=== PATIENT | male | born 1950 | race Caucasian/White ===

== ENCOUNTER 2020-04-11 18:32 | Inpatient (IN) | payer OTHER, BC ==
[2020-04-11] MEDS ORDERED: ACETAMINOPHEN 1000 MG/100 ML VIAL (NON FORMULARY) IVPB ONE (18:38)
[2020-04-11] MEDS: ALBUTEROL SO4 2.5/IPRATROPIUM 0.5 INH SOL 3 ML VIAL.NEB. NEB SCH ×4 (18:50→19:24)
[2020-04-11] MEDS ORDERED: AZITHROMYCIN IVPB 500 MG/250 ML BAG IVPB ONE ×2 (18:52→19:06)
[2020-04-11] MEDS ORDERED: CEFTRIAXONE 1 GM in DEXTROSE 5%-WATER - 50 ML IVPB ONE (18:52)
[2020-04-11] MEDS ORDERED: CEFTRIAXONE 1 GM/50 ML BAG ONE (19:06)
[2020-04-11 19:20] LABS: VENOUS BASE EXCESS -0.4 mmol/L (-2-2); VENOUS O2 SATURATION 98.6 % (70-80); VENOUS PCO2 38.5 mmHg (38-52); VENOUS PH 7.412 (7.310-7.410)
[2020-04-11] MEDS ORDERED: DEXAMETHASONE SOD PHOSPHATE 10 MG/1 ML VIAL IVPUSH ONE (19:21)
--- NOTE | 2020-04-11 19:21 | PDOC ---
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 Pt reports worsening shortness of breath today, and cough productive of yellow sputum prior to calling EMS, PT uses O2 at baseline at home constantly at 4 or 5L. He denies any associated chest pain, pleuritic pain, hemoptysis, nausea, vomiting, 04/11/20 20:12 ROS: GENERAL/CONSTITUTIONAL: No fever or chills. No weakness. HEAD, EYES, EARS, NOSE AND THROAT: No change in vision. No ear pain or discharge. No sore throat. CARDIOVASCULAR: No chest pain or shortness of breath RESPIRATORY: No cough, wheezing, or hemoptysis. GASTROINTESTINAL: No nausea, vomiting, diarrhea or constipation. GENITOURINARY: No dysuria, frequency, or change in urination. MUSCULOSKELETAL: No joint or muscle swelling or pain. No neck or back pain. SKIN: No rash NEUROLOGIC: No headache, vertigo, loss of consciousness, or change in strength/sensation. ENDOCRINE: No increased thirst. No abnormal weight change HEMATOLOGIC/LYMPHATIC: No anemia, easy bleeding, or history of blood clots. ALLERGIC/IMMUNOLOGIC: No hives or skin allergy. PE: GENERAL: Awake, alert, tripoding, thin appearing HEAD: No signs of trauma, normocephalic, atraumatic EYES: PERRLA, EOMI, sclera anicteric, conjunctiva clear ENT: Auricles normal inspection, hearing grossly normal, nares patent, oropharynx clear without exudates. Moist mucosa NECK: Normal ROM, supple, no lymphadenopathy, JVD, or masses LUNGS: expiratory wheezing, increased respiratory effort on non-rebreather HEART: tachycardic, normal S1 and S2, no murmurs, rubs or gallops, peripheral pulses normal and equal bilaterally. ABDOMEN: Soft, nontender, normoactive bowel sounds. No guarding, no rebound. No masses EXTREMITIES : Normal inspection, Normal range of motion, no edema. No clubbing or cyanosis NEUROLOGICAL: Cranial nerves II through XII grossly intact. Normal speech, no focal sensorimotor deficits SKIN: Warm, Dry, normal turgor, no rashes or lesions noted 04/11/20 20:27 04/11/20 20:51 04/11/20 20:58 <Stefany Friend - Last Filed: 05/19/20 19:42> <Elvis Lang - Last Filed: 06/09/20 16:45> - General Chief Complaint: Shortness of Breath Stated Complaint: SHORTNESS OF BREATH Time Seen by Provider: 04/11/20 18:44 Past History - Medical History COPD: Yes - Psycho-Social/Smoking History Smoking History: Never smoked - Substance Abuse Hx (Audit-C & DAST Scrn) How often the patient has a drink containing alcohol: Never Score: In Men: 4 or > Positive; In Women: 3 or > Positive: 0 Screen Result (Pos requires Nsg. Audit-10AR): Negative In the last yr the pt used illegal drug/Rx for NonMed reason: No Score: Yes response is considered Positive: 0 Screen Result (Positive result requires Nsg. DAST-10): Negative <Stefany Friend - Last Filed: 05/19/20 19:42> <Elvis Lang - Last Filed: 06/09/20 16:45> - Medical History Allergies/Adverse Reactions: Allergies Allergy/AdvReac Type Severity Reaction Status Date / Time No Known Allergies Allergy Verified 04/11/20 18:55 Home Medications: Ambulatory Orders Albuterol Sulfate [Proair Hfa] 8.5 gm IH PRN 04/11/20 Cetirizine HCl [Zyrtec -] 10 mg PO PRN 04/11/20 Ramipril 1.25 mg PO DAILY 04/11/20 Salmeterol/Fluticasone [Advair 100Mcg/50Mcg -] 1 inh PO BID 04/11/20 Theophylline Anhydrous [Domo-24] 150 mg PO BID 04/11/20 Tiotropium [place] [Spiriva] 1 inh PO DAILY 04/11/20 Prednisone See Taper PO DAILY #76 tablet 04/22/20 Ramipril 2.5 mg PO DAILY 04/23/20 Theophylline Anhydrous 0.5 tab 04/23/20 *Physical Exam - Vital Signs Last Vital Signs Temp Pulse Resp BP Pulse Ox 101.5 F H 147 H 32 H 147/110 H 97 04/11/20 18:34 04/11/20 18:34 04/11/20 18:34 04/11/20 18:34 04/11/20 18:34 <Stefany Friend - Last Filed: 05/19/20 19:42> - Vital Signs Last Vital Signs Temp Pulse Resp BP Pulse Ox 98 F 112 H 21 H 103/56 L 99 04/23/20 14:08 04/23/20 14:08 04/23/20 14:08 04/23/20 14:08 04/23/20 10:00 <Elvis Lang - Last Filed: 06/09/20 16:45> ED Treatment Course - LABORATORY CBC & Chemistry Diagram: 04/22/20 05:30 04/22/20 05:30 <Stefany Friend - Last Filed: 05/19/20 19:42> - LABORATORY CBC & Chemistry Diagram: 04/22/20 05:30 04/22/20 05:30 - ADDITIONAL ORDERS Additional order review: 04/11/20 19:00 Blood Culture - Final Blood - Peripheral Venous NO GROWTH AFTER 5 DAYS INCUBATION 04/11/20 19:00 Blood Culture - Final Blood - Peripheral Venous NO GROWTH AFTER 5 DAYS INCUBATION 04/11/20 17:50 RBC 3.72 L MCV 93.4 MCHC 32.6 RDW 13.5 MPV 8.7 Neutrophils % 69.8 Lymphocytes % 6.9 L Monocytes % 7.4 Eosinophils % 15.6 H Basophils % 0.3 - Medications Given in the ED: ED Medications Discontinued Medications Generic Name Dose Route Start Last Admin Trade Name Freq PRN Reason Stop Dose Admin Acetaminophen 1,000 mg 04/11/20 18:38 04/11/20 18:59 Ofirmev Injection - IVPB 04/11/20 18:39 1,000 mg ONCE ONE Administration Acetaminophen 650 mg 04/18/20 11:27 04/23/20 09:52 Tylenol - PO 650 mg Q6H PRN Administration Fever Acetylcysteine 600 mg 04/21/20 20:00 04/22/20 17:25 Mucomyst 20 Oral / Inh Use Only* NEB Not Given RBID JACQUELIN Acetylcysteine 600 mg 04/22/20 09:00 04/23/20 08:40 Mucomyst 20 Oral / Inh Use Only* NEB 600 mg RBID JACQUELIN Administration Albuterol Sulfate 2 puff 04/12/20 08:00 04/15/20 12:43 Ventolin Hfa Inhaler - IH 2 puff RQ4H JACQUELIN Administration Albuterol Sulfate 1 amp 04/21/20 10:43 04/23/20 08:40 Ventolin 0.083% Nebulizer Soln - NEB 1 amp Q4H PRN Administration SHORT OF BREATH/WHEEZING Albuterol/Ipratropium 1 amp 04/11/20 19:00 04/11/20 19:24 Duoneb - NEB 04/11/20 19:46 1 amp Q15M JACQUELIN Administration Albuterol/Ipratropium 1 amp 04/11/20 22:45 04/11/20 23:25 Duoneb - NEB Not Given Q4H JACQUELIN Albuterol/Ipratropium 1 amp 04/15/20 20:00 04/20/20 14:09 Duoneb - NEB 1 amp RTID JACQUELIN Administration Budesonide/Formoterol Fumarate 2 puff 04/21/20 11:00 04/23/20 10:15 Symbicort 80/4.5mcg - IH 2 puff BID JACQUELIN Administration Dexamethasone Sodium Phosphate 10 mg 04/11/20 19:21 04/11/20 19:00 Decadron Injection - IVPUSH 04/11/20 19:22 10 mg ONCE ONE Administration Enoxaparin Sodium 40 mg 04/12/20 10:00 04/23/20 10:15 Lovenox - SQ 40 mg DAILY JACQUELIN Administration Azithromycin 500 mg in 250 mls @ 250 mls/hr 04/11/20 18:52 04/11/20 19:34 Zithromax 500mg Ivpb (Pre-Docked) IVPB 04/11/20 19:51 250 mls/hr ONCE ONE Administration Ceftriaxone Sodium 1 gm/ 50 mls @ 100 mls/hr 04/11/20 18:52 04/11/20 19:19 Dextrose IVPB 04/11/20 19:21 100 mls/hr ONCE ONE Administration Voriconazole 400 mg/ Dextrose 140 mls @ 70 mls/hr 04/11/20 23:30 04/12/20 11:11 IVPB 04/12/20 13:29 70 mls/hr Q12H JACQUELIN Administration Ceftriaxone Sodium 1 gm/ 50 mls @ 200 mls/hr 04/13/20 10:00 04/19/20 09:25 Dextrose IVPB 200 mls/hr DAILY JACQUELIN Administration Protocol Ceftriaxone Sodium 1 gm/ 50 mls @ 100 mls/hr 04/20/20 15:30 04/22/20 10:06 Dextrose IVPB 100 mls/hr DAILY JACQUELIN Administration Methylprednisolone Sodium Succinate 40 mg 04/12/20 02:00 04/13/20 09:34 Solu-Medrol - IVPUSH 40 mg Q8H-IV JACQUELIN Administration Methylprednisolone Sodium Succinate 40 mg 04/14/20 17:31 04/15/20 09:48 Solu-Medrol - IVPUSH 40 mg Q8H-IV JACQUELIN Administration Methylprednisolone Sodium Succinate 40 mg 04/15/20 22:00 04/17/20 11:25 Solu-Medrol - IVPUSH Not Given BID JACQUELIN Metoprolol Tartrate 5 mg 04/18/20 12:24 04/22/20 13:16 Lopressor Injection - IVPUSH 5 mg Q4H PRN Administration TACHYCARDIA Naproxen 220 mg 04/18/20 11:34 04/20/20 09:12 Naprosyn - PO 220 mg Q6H PRN Administration PAIN LEVEL 6-10 Naproxen 250 mg 04/22/20 00:14 04/22/20 13:25 Naprosyn - PO 250 mg Q6H PRN Administration PAIN LEVEL 6-10 Prednisone 40 mg 04/18/20 10:00 04/23/20 10:15 Deltasone - PO 40 mg DAILY JACQUELIN Administration Sodium Chloride 500 ml 04/11/20 20:16 04/11/20 21:02 Normal Saline - IV 04/11/20 20:17 500 ml ONCE ONE Administration Tiotropium [place] 2 puff 04/12/20 10:00 04/15/20 10:12 Spiriva Respimat IH 2 puff DAILY JACQUELIN Administration Tiotropium [place] 2 puff 04/21/20 11:00 04/23/20 10:15 Spiriva Respimat IH 2 puff DAILY JACQUELIN Administration <Elvis Lang - Last Filed: 06/09/20 16:45> Medical Decision Making - Medical Decision Making 04/11/20 18:45 70 y/o M hx of emphysema on theophylline presenting to ED with shortness of breath via EMS. ddx; copd exacerbation vs pneumonia, vs p.e, vs acs. pt arrived on NRB, placed on BIPAP febrile on presentation ddx: copd exacerbation secondary to infection (covid/other infection ) infectious/covid/copd exacerbation workup meds: iv decadron, nebs. 04/11/20 19:21 pt on BIPAP respiratory distress improved. CXR: hyperinflated lungs. RUl infiltrates vs cavitary lesion meds: ceftriaxone and azithomycin 04/11/20 20:13 bedside ultraasound: non-plethoric IVC, B-lines bilaterally, hyperdynamic heart. ekg: sinus tachycardia, right atrial enlargement no ST elevations. elevated white count vbg pH 7.4 elevated ferritin 595,7 04/11/20 20:47 04/11/20 20:48 04/11/20 20:58 <Stefany Friend - Last Filed: 05/19/20 19:42> Discharge - Discharge Information Problems reviewed: Yes <Stefany Friend - Last Filed: 05/19/20 19:42> - Discharge Information Problems reviewed: Yes <Elvis Lang - Last Filed: 06/09/20 16:45> - Discharge Information Clinical Impression/Diagnosis: COPD (chronic obstructive pulmonary disease) Condition: Stable Disposition: HOME
[2020-04-11 19:32] LABS: BASO % 0.3 % (0-2.0); EOS % 15.6 % (0-4.5); HEMATOCRIT 34.7 % (35.4-49); HEMOGLOBIN 11.3 GM/dL (11.7-16.9); LYMPH % 6.9 % (8-40); MCH 30.5 pg (25.7-33.7); MCHC 32.6 g/dl (32.0-35.9); MEAN CELL VOLUME 93.4 fl (80-96); MEAN PLT VOLUME 8.7 fl (7.5-11.1); MONO % 7.4 % (3.8-10.2); NEUT % 69.8 % (42.8-82.8); PLATELET COUNT 274 K/MM3 (134-434); RBC 3.72 M/mm3 (4.00-5.60); RDW 13.5 % (11.9-15.9); WHITE BLOOD COUNT 18.3 K/mm3 (4.0-10.0)
[2020-04-11 19:37] LABS: INR 1.17 (0.83-1.09); PROTHROMBIN TIME (PATIENT) 13.8 SEC (9.7-13.0)
[2020-04-11 19:39] LABS: ACTIVATED PTT 26.1 SECONDS (25.2-36.5)
[2020-04-11 20:09] LABS: ALBUMIN 2.9 g/dl (3.4-5.0); ALK PHOS 59 U/L (45-117); ANION GAP 9 MMOL/L (8-16); BILIRUBIN,TOTAL 0.5 mg/dL (0.2-1); CALCIUM 9.1 mg/dL (8.5-10.1); CHLORIDE 100 mmol/L (98-107); CO2 26 mmol/L (21-32); CREATININE 0.7 mg/dL (0.55-1.3); POTASSIUM 4.1 mmol/L (3.5-5.1); SGPT/ALT 14 U/L (13-61); SODIUM 136 mmol/L (136-145); TOT PROT 7.8 g/dl (6.4-8.2)
[2020-04-11] MEDS ORDERED: SODIUM CHLORIDE 0.9% 500 ML INFUS.BAG IV ONE (20:16)
[2020-04-11 20:21] LABS: BLOOD UREA NITROGEN 16.1 mg/dL (7-18); GLUCOSE,RANDOM 130 mg/dL (74-106); SGOT/AST 19 U/L (15-37)
--- NOTE | 2020-04-11 21:01 | PN ---
Teaching Attending Note Name of Resident: Marilyn Grijalva ATTENDING PHYSICIAN STATEMENT I saw and evaluated the patient. I reviewed the resident's note and discussed the case with the resident. I agree with the resident's findings and plan as documented. SUBJECTIVE: Patient is a 70 year old man with a PMH of Emphysema on theophylline, HTN and Chronic RUL mass (possible aspergilosis) presenting to the ER with shortness of breath. Patient reports worsening shortness of breath today, and cough productive of yellow sputum prior to calling EMS. Patient is on home O2 constantly at 4 or 5L. He denies any associated chest pain, pleuritic pain, hemoptysis, nausea, vomiting, chills, headache, abdominal pain, dysuria or diarrhea. Ex-smoker. Denies alcohol, tobacco or illicit drug use. No sick contacts or recent travels. Has family history of leukemia and CAD in father. OBJECTIVE: Alert and on BiPAP Vital Signs Period Temp Pulse Resp BP Sys/Martinez Pulse Ox Last 24 Hr 101.5 F 129-147 22-32 108-150/62-110 97-100 HEENT: No Jaundice, eye redness or discharge, PERRLA, EOMI. Normocephalic, atraumatic. External ears are normal and hearing is grossly intact. No nasal discharge. Neck: Supple, nontender. No palpable adenopathy or thyromegaly. No JVD Chest: Good effort. Diminished breath sounds. Expiratory wheezing. Clear to percussion. Heart: Regular. No S3, rub or murmur Abdomen: Not distended, soft, nontender and no HSM. No rebound or guarding. Normal bowel sounds. Ext: Peripheral pulses intact. No leg edema. Skin: Warm and dry. No petechiae, rash or ecchymosis. Neuro: Alert. Oriented x3. CN 2-12 grossly intact. Sensation grossly intact in all four extremities and DTR are symmetric. Psych: Appropriate mood and affect. Good insight. Home Medications Medication Instructions Recorded Albuterol Sulfate [Proair Hfa] 8.5 gm IH PRN 04/11/20 Cetirizine HCl [Zyrtec -] 10 mg PO PRN 04/11/20 Naproxen Sodium [Aleve] 220 mg PO PRN 04/11/20 Ramipril 1.25 mg PO DAILY 04/11/20 Salmeterol/Fluticasone [Advair 1 inh PO BID 04/11/20 100Mcg/50Mcg -] Theophylline Anhydrous [Domo-24] 150 mg PO BID 04/11/20 Tiotropium [place] [Spiriva] 1 inh PO DAILY 04/11/20 Abnormal Lab Results 04/11/20 04/11/20 04/11/20 17:50 17:50 18:39 WBC 18.3 H RBC 3.72 L Hgb 11.3 L Hct 34.7 L Absolute Neuts (auto) 12.8 H Lymphocytes % 6.9 L Eosinophils % 15.6 H PT with INR 13.80 H INR 1.17 H VBG pH POC VBG pO2 VBG O2 Sat (Sherri) Random Glucose 130 H Ferritin Albumin 2.9 L 04/11/20 04/11/20 18:39 19:00 WBC RBC Hgb Hct Absolute Neuts (auto) Lymphocytes % Eosinophils % PT with INR INR VBG pH 7.412 H POC VBG pO2 127.3 H VBG O2 Sat (Sherri) 98.6 H Random Glucose Ferritin 595.7 H Albumin Current Medications Generic Name Dose Route Start Last Admin Trade Name Freq PRN Reason Stop Dose Admin Albuterol/Ipratropium 1 amp 04/11/20 22:45 04/11/20 23:25 Duoneb - NEB Not Given Q4H [facility] Enoxaparin Sodium 40 mg 04/12/20 10:00 Lovenox - SQ DAILY JACQUELIN Voriconazole 400 mg/ Dextrose 140 mls @ 70 mls/hr 04/11/20 23:30 IVPB Q12H JACQUELIN Voriconazole 400 mg/ Dextrose 140 mls @ 70 mls/hr 04/11/20 23:30 IVPB 04/12/20 13:29 Q12H [facility] Influenza Virus Vaccine Quadrival 60 mcg 04/11/20 22:00 Flulaval Quad [id number] IM 04/11/20 22:01 .ONCE ONE Methylprednisolone Sodium Succinate 40 mg 04/12/20 02:00 Solu-Medrol - IVPUSH Q8H-IV [facility] Non-Formulary Medication 1 inh 04/12/20 10:00 Tiotropium [place] [Spiriva] PO DAILY [facility] Pneumococcal 13-Valent Conj Vacc 0.5 ml 04/11/20 22:00 Prevnar 13 Syringe - IM 04/11/20 22:01 .ONCE ONE ASSESSMENT AND PLAN: 1. COPD exacerbation/Sepsis due to ?Pneumonia - No obvious precipitating factor because CXR findings appear chronic. CXR shows interstitial, fibrotic pleural and lung disease, most pronounced in the RUL. Official report of CTA chest p ending, but no pulmonary embolism noted. Urinalysis pending. Patient started on BiPAP in the ER. ER staff prescribed Tylenol, Azithromycin, Rocephin, Tylenol, Dexamethasone and IV NS for the patient. Will continue the antibiotics, treat with Duoneb, Solumedrol 60 mg q 8 hours, Symbicort and consult Pulmonary. Send sputum culture. Will consult ID to discuss treating him with Voriconazole pending confirmation of aspergillosis. Viral testing for COVID-19 ordered and patient placed on airborne, droplet and contact isolation. EKG shows sinus tachycardia at 134/minute and QTc [address]-T wave changes. Will continue comprehensive care for all of patients comorbid conditions. 2. Mild anemia - Cause unclear. Will do basic anemia work up including serial stool guaiacs, reticulocyte count and iron studies. 3. Hypertension Will restart suitable outpatient antihypertensive drugs when clinically appropriate. Subsequently, will revise regimen to ensure [id number] excellent BP control. Patient counseled on the injurious effects of uncontrolled hypertension. Nonpharmacologic measures to control hypertension like weight loss, salt restriction and exercise stressed. Impor tance of adherence to treatment regimen and attainment of normotension emphasized. 4. DVT prophylaxis - Lovenox 40 mg SQ q 24 hours. 5. Advance directives - Full code
--- NOTE | 2020-04-11 21:59 | PDOC ---
Documentation entered by Narcisa Gonzalez SCRIBE, acting as scribe for Elvis Lagn DO. Elvis Lang DO: This documentation has been prepared by the Carlos ernandez Lincy, SCRIBE, under my direction and personally reviewed by me in its entirety. I confirm that the documentation accurately reflects all work, treatment, procedures, and medical decision making performed by me. Attending Attestation - Resident Resident Name: Stefany Friend - ED Attending Attestation I have performed the following: I have examined & evaluated the patient, I agree w/resident's findings & plan - HPI HPI: 04/11/20 19:08 70-year-old male with a history of emphysema and COPD (on theophylline) here with shortness of breath and fever. - Physicial Exam PE: 04/11/20 19:08 Tachypneic. Tachycardia. Hypoxic on room air. Mild to moderate respiratory distress. Able to speak in 4-5 sentences. - Critical Care Time Total Critical Care Time: 45 (Secondary to respiratory distress. ) Critical Care Statement: The care of this patient involved high complexity decision making to prevent further life threatening deterioration of the patient's condition and/or to evaluate & treat vital organ system(s) failure or risk of failure. - Medical Decision Making 04/11/20 19:09 70-year-old male here with moderate COPD exacerbation likely secondary to pneumonia vs. COVID. Plan: IV fluids, antibiotics, steroids, nebulizers. Admit to tele likely. 04/11/20 19:31 The patient appears to be improving with bipap. Heart rate is coming down. 04/11/20 19:43 EKG: Sinus tachycardia to 134, motion artifact likely secondary to bipap, no acute ischemia. Time: 1941 Will repeat once the patient is stabilized. 04/11/20 21:02 Impression: COPD exacerbation possibly secondary to his underlying aspergillosis. CT PE pending. Consider covering with broad spectrum antibiotics. Admitted to Tele. Patient is comfortable with bipap, in no distress Heart rates remains high secondary to chronic theophylline use. Discharge - Discharge Information Problems reviewed: Yes Clinical Impression/Diagnosis: COPD (chronic obstructive pulmonary disease) Condition: Stable Disposition: HOME - Follow up/Referral - Patient Discharge Instructions - Post Discharge Activity
[2020-04-11 22:00] VITALS: BMI 20.3
[2020-04-11] MEDS ORDERED: PNEUMOC 13-VAL CONJ-DIP CRM/PF 0.5 ML DISP.SYRIN IM ONE (22:00)
[2020-04-11] MEDS ORDERED: FLU VACCINE QUAD 60 MCG/0.5 ML (MDV 19-20) IM ONE (22:00)
[2020-04-11] MEDS ORDERED: VORICONAZOLE 200 MG/20 ML VIAL (RESTRICTED TO ID) IVPB SCH ×2 (22:30→22:46)
[2020-04-11] MEDS ORDERED: ALBUTEROL SO4 2.5/IPRATROPIUM 0.5 INH SOL 3 ML VIAL.NEB. NEB SCH (22:45)
--- NOTE | 2020-04-11 23:03 | HP ---
CHIEF COMPLAINT: Shortness of breath PCP: Dr. Boyce (Door Furring Installer at [facility], no PCP) HISTORY OF PRESENT ILLNESS: 70M PMH emphysema, COPD (4-5L home O2), chronic upper lung mass(uncertain eitology), who presents today with respiratory distress. Patient was home and noted to have shortness of breath in the afternoon at rest. Patient was tripoding at home, unable to speak in full sentences, and had his oxygen tank on maximum flow but did not feel his breathing was improving. He noted that he has a chronic cough, and produced green sputum today. Patient noted he had chest pain until he coughed and produced sputum. He denies any fevers or chills at home, no abdominal pain, nausea, vomiting, diarrhea, dysuria, hematuria, hemptoysis. Patient notes that he has a lung mass on the right upper lobe- work up was done by his flat grinder operator- Dr. Boyce of [facility]- he notes that biopsy was done and it was "negative." Patient made note that it could possibly be fungal as per his MD, but unsure of what kind and what treatments were offered to him. Patient is quaratining at home as best as he can, his goes to do groceries- however last week neighbors did visit him on his birthday. ER course was notable for: (1) IV dexamethasone 10 mg given, 500 ml NS given, Duonebs given x4, Patient placed on BIPAP- improved his respiratory status (2) Chest X-Ray and Chest CTA done. (3) EKG completed: Qtc of 424, sinus tachycardia 134 Recent Travel: None PAST MEDICAL HISTORY: COPD, Emphysema, chronic right upper lung mass PAST SURGICAL HISTORY: B/L Cataract surgery @ 45 FAMILY MEDICAL HISTORY: Leukemia and HTN in father, CAD in sister Social History: Smokin pack year history, quit 2 years ago Alcohol: No longer drinks Drugs: Denies Lives at home with . Allergies No Known Allergies Allergy (Verified 04/11/20 18:55) HOME MEDICATIONS: Home Medications Medication Instructions Recorded Albuterol Sulfate [Proair Hfa] 8.5 gm IH PRN 04/11/20 Cetirizine HCl [Zyrtec -] 10 mg PO PRN 04/11/20 Naproxen Sodium [Aleve] 220 mg PO PRN 04/11/20 Ramipril 1.25 mg PO DAILY 04/11/20 Salmeterol/Fluticasone [Advair 1 inh PO BID 04/11/20 100Mcg/50Mcg -] Theophylline Anhydrous [Domo-24] 150 mg PO BID 04/11/20 Tiotropium [place] [Spiriva] 1 inh PO DAILY 04/11/20 REVIEW OF SYSTEMS CONSTITUTIONAL: Present: generalized weakness Absent: fever, chills, diaphoresis, , malaise, loss of appetite, weight change HEENT: Absent: rhinorrhea, nasal congestion, throat pain, throat swelling, difficulty swallowing, mouth swelling, ear pain, eye pain, visual changes CARDIOVASCULAR: Present: chest pain Absent: syncope, palpitations, irregular heart rate, lightheadedness, peripheral edema RESPIRATORY: Present: cough, shortness of breath Absent: dyspnea with exertion, orthopnea, wheezing, stridor, hemoptysis GASTROINTESTINAL: Absent: abdominal pain, abdominal distension, nausea, vomiting, diarrhea, constipation, melena, hematochezia GENITOURINARY: Absent: dysuria, frequency, urgency, hesitancy, hematuria, flank pain, genital pain MUSCULOSKELETAL: Absent: myalgia, arthralgia, joint swelling, back pain, neck pain SKIN: Absent: rash, itching, pallor HEMATOLOGIC/IMMUNOLOGIC: Absent: easy bleeding, easy bruising, lymphadenopathy, frequent infections ENDOCRINE: Absent: unexplained weight gain, unexplained weight loss, heat intolerance, cold intolerance NEUROLOGIC: Absent: headache, focal weakness or paresthesias, dizziness, unsteady gait, seiz ure, mental status changes, bladder or bowel incontinence PSYCHIATRIC: Absent: anxiety, depression, suicidal or homicidal ideation, hallucinations. PHYSICAL EXAMINATION Vital Signs - 24 hr 04/11/20 04/11/20 04/11/20 18:34 18:53 19:10 Temperature 101.5 F H Pulse Rate 147 H Pulse Rate [ 137 H Radial] Respiratory 32 H 24 H Rate Blood Pressure 147/110 H Blood Pressure 150/91 [Right Arm] O2 Sat by Pulse 97 99 100 Oximetry (%) 04/11/20 04/11/20 04/11/20 19:22 19:38 20:00 Temperature Pulse Rate 139 H Pulse Rate [ 136 H Radial] Respiratory 22 H Rate Blood Pressure Blood Pressure 116/62 [Right Arm] O2 Sat by Pulse 100 100 100 Oximetry (%) 04/11/20 04/11/20 04/11/20 20:16 20:43 21:17 Temperature 98.2 F Pulse Rate 122 H Pulse Rate [ 129 H 130 H Radial] Respiratory 22 H 22 H 18 Rate Blood Pressure 106/52 L Blood Pressure 108/65 104/73 [Right Arm] O2 Sat by Pulse 100 100 100 Oximetry (%) 04/11/20 21:32 Temperature Pulse Rate Pulse Rate [ Radial] Respiratory Rate Blood Pressure Blood Pressure [Right Arm] O2 Sat by Pulse 100 Oximetry (%) GENERAL: Awake, alert, and fully oriented, in no acute distress. Patient was notably in distress when he ambulated from entrance of room to the bed, recovered once BIPAP mask was in place for 5 minutes. HEAD: Normal with no signs of trauma. EARS, NOSE, THROAT: Moist mucous membranes. LUNGS: Poor airway movement b/l. No wheezing or crackles. HEART: Tachycardia without murmur, rub or gallop. ABDOMEN: Soft, nontender, not distended, normoactive bowel sounds, no guarding, no rebound, no masses. UPPER EXTREMITIES: 2+ pulses, warm, well-perfused. No cyanosis. No clubbing. No peripheral edema. LOWER EXTREMITIES: 2+ pulses, warm, well-perfused. No calf tenderness. No peripheral edema. NEUROLOGICAL: Cranial nerves II-XII intact. Normal speech. Normal gait. PSYCHIATRIC: Cooperative. Good eye contact. Appropriate mood and affect. SKIN: Warm, dry, normal turgor, no rashes or lesions noted, normal capillary ref ill. Laboratory Results - last 24 hr 04/11/20 04/11/20 04/11/20 17:50 17:50 17:50 WBC 18.3 H RBC 3.72 L Hgb 11.3 L Hct 34.7 L MCV 93.4 MCH 30.5 MCHC 32.6 RDW 13.5 Plt Count 274 MPV 8.7 Absolute Neuts (auto) 12.8 H Neutrophils % 69.8 Lymphocytes % 6.9 L Monocytes % 7.4 Eosinophils % 15.6 H Basophils % 0.3 Nucleated RBC % 0 PT with INR 13.80 H INR 1.17 H PTT (Actin FS) 26.1 VBG pH POC VBG pCO2 POC VBG pO2 VBG HCO3 VBG O2 Sat (Sherri) VBG Base Excess Sodium Potassium Chloride Carbon Dioxide Anion Gap BUN Creatinine Est GFR (CKD-EPI)AfAm Est GFR (CKD-EPI)NonAf Random Glucose Lactic Acid Calcium Magnesium Ferritin Total Bilirubin AST ALT Alkaline Phosphatase LD Total 189 Creatine Kinase Troponin I C-Reactive Protein Total Protein Albumin 04/11/20 04/11/20 04/11/20 18:39 18:39 19:00 WBC RBC Hgb Hct MCV MCH MCHC RDW Plt Count MPV Absolute Neuts (auto) Neutrophils % Lymphocytes % Monocytes % Eosinophils % Basophils % Nucleated RBC % PT with INR INR PTT (Actin FS) VBG pH 7.412 H POC VBG pCO2 38.5 POC VBG pO2 127.3 H VBG HCO3 24.0 VBG O2 Sat (Sherri) 98.6 H VBG Base Excess -0.4 Sodium 136 Potassium 4.1 Chloride 100 Carbon Dioxide 26 Anion Gap 9 BUN 16.1 Creatinine 0.7 Est GFR (CKD-EPI)AfAm 110.82 Est GFR (CKD-EPI)NonAf 95.61 Random Glucose 130 H Lactic Acid Calcium 9.1 Magnesium 2.0 Ferritin 595.7 H Total Bilirubin 0.5 AST 19 ALT 14 Alkaline Phosphatase 59 LD Total Creatine Kinase 30 Troponin I < 0.02 C-Reactive Protein 10.9 H Total Protein 7.8 Albumin 2.9 L 04/11/20 19:00 WBC RBC Hgb Hct MCV MCH MCHC RDW Plt Count MPV Absolute Neuts (auto) Neutrophils % Lymphocytes % Monocytes % Eosinophils % Basophils % Nucleated RBC % PT with INR INR PTT (Actin FS) VBG pH POC VBG pCO2 POC VBG pO2 VBG HCO3 VBG O2 Sat (Sherri) VBG Base Excess Sodium Potassium Chloride Carbon Dioxide Anion Gap BUN Creatinine Est GFR (CKD-EPI)AfAm Est GFR (CKD-EPI)NonAf Random Glucose Lactic Acid 1.7 Calcium Magnesium Ferritin Total Bilirubin AST ALT Alkaline Phosphatase LD Total Creatine Kinase Troponin I C-Reactive Protein Total Protein Albumin IMAGING: Chest X-Ray: Official Read Pending Chest CTA: Severe centrilobular emphysema is noted. Marked right upper lobe and moderate left upper lobe parenchymal scarring is seen. There is mildly diminished volume of the right upper lobe.A superimposed right upper lobe acute infiltrate would be difficult to exclude on the basis of a single CT exam. Correlate clinically and with follow-up CT. 3.3 cm and 2 cm irregular left upper lobe opacities are noted which may represent primary neoplastic disease versus focal parenchymal scarring. PET/CT evaluation may be considered. Small amount of mucus secretions are seen within the thoracic trachea suggestive of chronic bronchitis. Focal nonspecific pleural thickening is seen within the right lower lobe posteriorly measuring 3.3 x 0.5 cm. Nonspecific mildly enlarged mediastinal and right hilar lymph nodes are noted. Extensive atherosclerotic coronary calcifications are noted. Chronic moderate to marked T7 and mild to moderate T12 vertebral body compression fractures are seen. Cholelithiasis. ASSESSMENT/PLAN: 70M PMH emphysema, COPD (4-5L home O2), chronic upper lung mass(uncertain eitology) presenting with sepsis possibly 2/2 to COPD exacerbation vs flare up of chronic infection. 1) Sepsis - Undetermined source- No PNA seen or observed on Chest imaging. Chronic changes present. Superimposed RUL infiltrate difficult to exclude. Patient notes chronic RUL and possible "fungus" as per his PMD. Will require records from Door Furring Installer. - Tachycardic, Fever, elevated WBC on admission - Blood culture, Sputum Culture, Urine Legionella ordered - COVID Swab ordered - Ferritin, CRP elevated - Ceftriaxione Daily - Azithromycin Daily. - Loading dose Voriconazole Given - BiPAP as needed - ID consulted - Pulmnology consulted 2) COPD, Emphysema - Uses 4L at home, currently on BiPAP. Titrate O2 requirements to maintain SpO2> 88% - Duonebs, Spiriva, Solumedrol - Pulmonology consulted 3) Anemia - Hgb of 11.3 - FOBT pending - Iron studies pending 4) Tachycardia - Likely 2/2 to sepsis, will continue to monitor on telemetry - 500 ml bolus of NS given DVT: Lovenox 40 SQ F: 500 ml NS bolus E: Monitor CMP N: Regular diet Dispo: Admitted to telemetry Visit type - Emergency Visit Emergency Visit: Yes ED Registration Date: 04/11/20 Care time: The patient presented to the Emergency Department on the above date and was hospitalized for further evaluation of their emergent condition. - New Patient This patient is new to me today: Yes Date on this admission: 04/11/20 - Critical Care Critical Care patient: No ATTENDING PHYSICIAN STATEMENT I saw and evaluated the patient. I reviewed the resident's note and discussed the case with the resident. I agree with the resident's findings and plan as documented. SUBJECTIVE: OBJECTIVE: ASSESSMENT AND PLAN:
[2020-04-11] MEDS ORDERED: VORICONAZOLE IVPB SCH (23:30)
[2020-04-11] MEDS ORDERED: WATER IVPB SCH (23:30)
[2020-04-11] MEDS ORDERED: DEXTROSE 5% IVPB SCH (23:30)
[2020-04-12] MEDS: WATER IVPB SCH ×2 (00:29→11:11)
[2020-04-12] MEDS: DEXTROSE 5% IVPB SCH ×2 (00:29→11:11)
[2020-04-12] MEDS: VORICONAZOLE IVPB SCH ×2 (00:29→11:11)
[2020-04-12] MEDS: methylPREDNISolone NA SUCC 40 MG/1 ML VIAL IVPUSH SCH ×3 (03:00→17:55)
[2020-04-12] MEDS ORDERED: ALBUTEROL SO4 HFA INHALER IH SCH (06:00)
[2020-04-12 08:00] LABS: BASO % 0.1 % (0-2.0); EOS % 0.2 % (0-4.5); HEMATOCRIT 30.5 % (35.4-49); HEMOGLOBIN 10.1 GM/dL (11.7-16.9); LYMPH % 4.9 % (8-40); MCH 30.8 pg (25.7-33.7); MCHC 33.3 g/dl (32.0-35.9); MEAN CELL VOLUME 92.5 fl (80-96); MEAN PLT VOLUME 8.9 fl (7.5-11.1); MONO % 2.1 % (3.8-10.2); NEUT % 92.7 % (42.8-82.8); PLATELET COUNT 244 K/MM3 (134-434); RBC 3.29 M/mm3 (4.00-5.60); RDW 13.4 % (11.9-15.9); WHITE BLOOD COUNT 11.1 K/mm3 (4.0-10.0)
[2020-04-12 08:07] LABS: ALBUMIN 2.4 g/dl (3.4-5.0); BILIRUBIN,TOTAL 0.2 mg/dL (0.2-1); BLOOD UREA NITROGEN 14.3 mg/dL (7-18); CALCIUM 9.2 mg/dL (8.5-10.1); CREATININE 0.6 mg/dL (0.55-1.3); MAGNESIUM 2.1 mg/dL (1.8-2.4); PHOSPHOROUS 2.6 mg/dL (2.5-4.9); POTASSIUM 4.3 mmol/L (3.5-5.1); TOT PROT 7.1 g/dl (6.4-8.2)
[2020-04-12] MEDS: ALBUTEROL SO4 HFA INHALER IH SCH ×4 (08:45→20:00)
[2020-04-12] MEDS ORDERED: PT OWN MED DRAWER 7, Y5N ONE (10:04)
[2020-04-12] MEDS: ENOXAPARIN NA (PORCINE) 40 MG/0.4 ML DISP.SYRIN SQ SCH (10:10)
[2020-04-12] MEDS: TIOTROPIUM BROMIDE 2.5 MCG (SPIRIVA) RESPIMAT INHALER IH SCH (10:11)
--- NOTE | 2020-04-12 10:42 | PN ---
Teaching Attending Note Name of Resident: Leydi Bonilla ATTENDING PHYSICIAN STATEMENT I saw and evaluated the patient. I reviewed the resident's note and discussed the case with the resident. I agree with the resident's findings and plan as documented. SUBJECTIVE: Patient is on Bipap. continue OBJECTIVE: Vital Signs Temperature 98.4 F 04/12/20 08:54 Pulse Rate 130 H 04/12/20 08:54 Respiratory Rate 24 H 04/12/20 08:54 Blood Pressure 123/83 04/12/20 08:54 O2 Sat by Pulse Oximetry (%) 98 04/12/20 08:51 PE; per resident's note CBCD WBC 11.1 K/mm3 (4.0-10.0) H 04/12/20 06:34 RBC 3.29 M/mm3 (4.00-5.60) L 04/12/20 06:34 Hgb 10.1 GM/dL (11.7-16.9) L 04/12/20 06:34 Hct 30.5 % (35.4-49) L 04/12/20 06:34 MCV 92.5 fl (80-96) 04/12/20 06:34 MCHC 33.3 g/dl (32.0-35.9) 04/12/20 06:34 RDW 13.4 % (11.9-15.9) 04/12/20 06:34 Plt Count 244 K/MM3 (134-434) 04/12/20 06:34 MPV 8.9 fl (7.5-11.1) 04/12/20 06:34 CMP Sodium 138 mmol/L (136-145) 04/12/20 06:34 Potassium 4.3 mmol/L (3.5-5.1) 04/12/20 06:34 Chloride 103 mmol/L (98-107) 04/12/20 06:34 Carbon Dioxide 26 mmol/L (21-32) 04/12/20 06:34 Anion Gap 9 MMOL/L (8-16) 04/12/20 06:34 BUN 14.3 mg/dL (7-18) 04/12/20 06:34 Creatinine 0.6 mg/dL (0.55-1.3) 04/12/20 06:34 Random Glucose 143 mg/dL (74-106) H 04/12/20 06:34 Calcium 9.2 mg/dL (8.5-10.1) 04/12/20 06:34 Total Bilirubin 0.2 mg/dL (0.2-1) 04/12/20 06:34 AST 17 U/L (15-37) 04/12/20 06:34 ALT 15 U/L (13-61) 04/12/20 06:34 Alkaline Phosphatase 52 U/L (45-117) 04/12/20 06:34 Total Protein 7.1 g/dl (6.4-8.2) 04/12/20 06:34 Albumin 2.4 g/dl (3.4-5.0) L 04/12/20 06:34 CARDIAC ENZYMES Creatine Kinase 30 U/L (26-308) 04/11/20 18:39 Troponin I < 0.02 ng/ml (0.00-0.05) 04/11/20 18:39 Current Medications Generic Name Dose Route Start Last Admin Trade Name Freq PRN Reason Stop Dose Admin Albuterol Sulfate 2 puff 04/12/20 08:00 04/12/20 08:45 Ventolin Hfa Inhaler - IH 1 inhaler RQ4H JACQUELIN Administration Albuterol/Ipratropium 1 amp 04/11/20 22:45 04/11/20 23:25 Duoneb - NEB Not Given Q4H JACQUELIN Enoxaparin Sodium 40 mg 04/12/20 10:00 04/12/20 10:10 Lovenox - SQ 40 mg DAILY JACQUELIN Administration Voriconazole 400 mg/ Dextrose 140 mls @ 70 mls/hr 04/11/20 23:30 IVPB Q12H JACQUELIN Voriconazole 400 mg/ Dextrose 140 mls @ 70 mls/hr 04/11/20 23:30 04/12/20 00:29 IVPB 04/12/20 13:29 70 mls/hr Q12H JACQUELIN Administration Influenza Virus Vaccine Quadrival 60 mcg 04/11/20 22:00 Flulaval Quad [id number] IM 04/11/20 22:01 .ONCE ONE Methylprednisolone Sodium Succinate 40 mg 04/12/20 02:00 04/12/20 10:11 Solu-Medrol - IVPUSH 40 mg Q8H-IV JACQUELIN Administration Pneumococcal 13-Valent Conj Vacc 0.5 ml 04/11/20 22:00 Prevnar 13 Syringe - IM 04/11/20 22:01 .ONCE ONE Tiotropium Riner 2 puff 04/12/20 10:00 04/12/20 10:11 Spiriva Respimat IH 2 puff DAILY JACQUELIN Administration Home Medications Medication Instructions Recorded Albuterol Sulfate [Proair Hfa] 8.5 gm IH PRN 04/11/20 Cetirizine HCl [Zyrtec -] 10 mg PO PRN 04/11/20 Naproxen Sodium [Aleve] 220 mg PO PRN 04/11/20 Ramipril 1.25 mg PO DAILY 04/11/20 Salmeterol/Fluticasone [Advair 1 inh PO BID 04/11/20 100Mcg/50Mcg -] Theophylline Anhydrous [Domo-24] 150 mg PO BID 04/11/20 Tiotropium [place] [Spiriva] 1 inh PO DAILY 04/11/20 Chest CTA: Severe centrilobular emphysema is noted. Marked right upper lobe and moderate left upper lobe parenchymal scarring is seen. There is mildly diminished volume of the right upper lobe.A superimposed right upper lobe acute infiltrate would be difficult to exclude on the basis of a single CT exam. Correlate clinically and with follow-up CT. 3.3 cm and 2 cm irregular left upper lobe opacities are noted which may represent primary neoplastic disease versus focal parenchymal scarring. PET/CT evaluation may be considered. Small amount of mucus secretions are seen within the thoracic trachea suggestive of chronic bronchitis. Focal nonspecific pleural thickening is seen within the right lower lobe posteriorly measuring 3.3 x 0.5 cm. Nonspecific mildly enlarged mediastinal and right hilar lymph nodes are noted. Extensive atherosclerotic coronary calcifications are noted. Chronic moderate to marked T7 and mild to moderate T12 vertebral body compression fractures are seen. Cholelithiasis. ASSESSMENT AND PLAN: This a patient is a 70yom with Pmhx of emphysema, COPD (4-5L home O2), chronic upper lung mass (unknown eitology) presenting with sepsis with COPD exacerbation and possible with superimposed RUL Pneumonia #Sepsis: due to RUL pneumonia : will start the patient on Rocephin, will try to get the patient's record. since patient had w/u done by his trade union secretary. # Acute over chronic COPD exacerbation, Emphysema on 4L oxygen at home, currently on BiPAP continue . Titrate O2 requirements to maintain SpO2> 88%, continue Duonebs, Spiriva, Solumedrol, Pulmonology consulted #Anemia: Hgb of 11.3, Iron studies pending DVT: Lovenox 40 SQ Dispo: Admitted to telemetry
[2020-04-12 11:17] LABS: ANISOCYTOSIS 0; MACROCYTOSIS 0; PLATELET ESTIMATE NORMAL
--- NOTE | 2020-04-12 14:41 | CON.PULM ---
Consult Consult Specialty:: PULM/CCM Referred by:: Hospitalist Reason for Consultation:: SOB - History of Present Illness Chief Complaint: SOB History of Present Illness: 70 M, emphysema, advanced COPD (4-5L home O2), chronic upper lung mass S/P right CT guided last summer at [facility], results are uncertain. He said he was not o ffered treatment. Last visit with his hot plate plywood press operator Dr Boyce was last July. No travel history or sick contacts. Admitted via the ER due to acute respiratory distress. Placed on NIPPV with good effect. No hemoptysis. No night sweats. CT: reviewed / bilateral scarring / masses / mediastinal adenopathy Right > left - History Source History Provided By: Patient Limitations to Obtaining History: No Limitations - Past Medical History Pulmonary: Yes: Bronchitis, COPD, O2 Dependent, Pneumonia. No: Asthma, Cancer, Previously Intubated, Pulmonary Embolus, Pulmonary Fibrosis, Sleep Apnea - Smoking History Smoking history: Never smoked Have you smoked in the past 12 months: No Home Medications - Allergies Allergies/Adverse Reactions: Allergies Allergy/AdvReac Type Severity Reaction Status Date / Time No Known Allergies Allergy Verified 04/11/20 18:55 - Home Medications Home Medications: Ambulatory Orders Albuterol Sulfate [Proair Hfa] 8.5 gm IH PRN 04/11/20 Cetirizine HCl [Zyrtec -] 10 mg PO PRN 04/11/20 Naproxen Sodium [Aleve] 220 mg PO PRN 04/11/20 Ramipril 1.25 mg PO DAILY 04/11/20 Salmeterol/Fluticasone [Advair 100Mcg/50Mcg -] 1 inh PO BID 04/11/20 Theophylline Anhydrous [Domo-24] 150 mg PO BID 04/11/20 Tiotropium [place] [Spiriva] 1 inh PO DAILY 04/11/20 Review of Systems - Review of Systems Constitutional: reports: Malaise, Weakness. denies: Chills, Fever, Night Sweats Eyes: reports: No Symptoms HENT: reports: No Symptoms Neck: reports: No Symptoms Cardiovascular: reports: Shortness of Breath. denies: Chest Pain, Edema, Palpitations Respiratory: reports: Cough, SOB, SOB on Exertion, Wheezing. denies: Snoring Gastrointestinal: reports: No Symptoms Genitourinary: reports: No Symptoms Breasts: reports: No Symptoms Reported Musculoskeletal: reports: No Symptoms Integumentary: reports: No Symptoms Neurological: reports: No Symptoms Endocrine: reports: No Symptoms Hematology/Lymphatic: reports: No Symptoms Psychiatric: reports: No Symptoms Physical Exam Vital Sings: Vital Signs Temperature 98.4 F 04/12/20 08:54 Pulse Rate 130 H 04/12/20 08:54 Respiratory Rate 24 H 04/12/20 08:54 Blood Pressure 123/83 04/12/20 08:54 O2 Sat by Pulse Oximetry (%) 98 04/12/20 12:24 Constitutional: Yes: Mild Distress Eyes: Yes: Conjunctiva Clear, EOM Intact HENT: Yes: Atraumatic, Normocephalic Neck: Yes: Supple, Trachea Midline Cardiovascular: Yes: Regular Rate and Rhythm Respiratory: Yes: Accessory Muscle Use, Cough, On BiPap, Rales, Rhonchi, SOB, SOB on Exertion, Tachypnea, Wheezes. No: Stridor ...Inspection: Yes: WNL ...Clubbing: No Gastrointestinal: Yes: Normal Bowel Sounds, Soft Renal/: Yes: WNL Breast(s): Yes: WNL Musculoskeletal: Yes: WNL Extremities: Yes: WNL Edema: No Peripheral Pulses WNL: Yes Integumentary: Yes: WNL Neurological: Yes: WNL, Alert, Oriented ...Motor Strength: WNL Psychiatric: Yes: WNL, Alert, Oriented Labs: CBC, BMP 04/12/20 06:34 04/12/20 06:34 Imaging - Results Chest X-ray: Report Reviewed, Image Reviewed Cat Scan: Report Reviewed, Image Reviewed Problem List - Problems (1) COPD (chronic obstructive pulmonary disease) Code(s): J44.9 - CHRONIC OBSTRUCTIVE PULMONARY DISEASE, UNSPECIFIED (2) Acute exacerbation of chronic obstructive pulmonary disease (COPD) Code(s): J44.1 - CHRONIC OBSTRUCTIVE PULMONARY DISEASE W (ACUTE) EXACERBATION (3) Emphysema lung Code(s): J43.9 - EMPHYSEMA, UNSPECIFIED (4) SOB (shortness of breath) Code(s): R06.02 - SHORTNESS OF BREATH (5) Lung mass Code(s): R91.8 - OTHER NONSPECIFIC ABNORMAL FINDING OF LUNG FIELD (6) Mediastinal adenopathy Code(s): R59.0 - LOCALIZED ENLARGED LYMPH NODES Assessment/Plan NIPPV support BD [place] Medrol Patient has access to his patient portal to get his previous workup at [facility] VTE prophylaxis No smoking Check COVID19 serology Will follow Thank you. Dr Sweet
--- NOTE | 2020-04-12 14:56 | PN ---
Physical Exam: SUBJECTIVE: Patient seen and examined at the bedside, no acute events overnight. Pt reports he is still feeling SOB and requiring NRM, also endorses feeling extremely weak. No other complaints at this time OBJECTIVE: Vital Signs Period Temp Pulse Resp BP Sys/Martinez Pulse Ox Last 24 Hr 97.6 F-101.5 F 98-147 18-32 104-155/52-110 97-100 GENERAL: Awake, alert, and fully oriented, in no acute distress. Patient was notably in distress when he ambulated from entrance of room to the bed, recovered once BIPAP mask was in place for 5 minutes. HEAD: Normal with no signs of trauma. EARS, NOSE, THROAT: Moist mucous membranes. LUNGS: Poor airway movement b/l. No wheezing or crackles. HEART: Tachycardia without murmur, rub or gallop. ABDOMEN: Soft, nontender, not distended, normoactive bowel sounds, no guarding, no rebound, no masses. UPPER EXTREMITIES: 2+ pulses, warm, well-perfused. No cyanosis. No clubbing. No peripheral edema. LOWER EXTREMITIES: 2+ pulses, warm, well-perfused. No calf tenderness. No peripheral edema. NEUROLOGICAL: Cranial nerves II-XII intact. Normal speech. Normal gait. PSYCHIATRIC: Cooperative. Good eye contact. Appropriate mood and affect. SKIN: Warm, dry, normal turgor, no rashes or lesions noted, normal capillary refill. Laboratory Results - last 24 hr 04/11/20 04/11/20 04/11/20 17:50 17:50 17:50 WBC 18.3 H RBC 3.72 L Hgb 11.3 L Hct 34.7 L MCV 93.4 MCH 30.5 MCHC 32.6 RDW 13.5 Plt Count 274 MPV 8.7 Absolute Neuts (auto) 12.8 H Neutrophils % 69.8 Neutrophils % (Manual) Band Neutrophils % Lymphocytes % 6.9 L Lymphocytes % (Manual) Monocytes % 7.4 Monocytes % (Manual) Eosinophils % 15.6 H Eosinophils % (Manual) Basophils % 0.3 Basophils % (Manual) Myelocytes % (Man) Promyelocytes % (Man) Blast Cells % (Manual) Nucleated RBC % 0 Metamyelocytes Hypochromia Platelet Estimate Polychromasia Poikilocytosis Anisocytosis Microcytosis Macrocytosis PT with INR 13.80 H INR 1.17 H PTT (Actin FS) 26.1 VBG pH POC VBG pCO2 POC VBG pO2 VBG HCO3 VBG O2 Sat (Sherri) VBG Base Excess Sodium Potassium Chloride Carbon Dioxide Anion Gap BUN Creatinine Est GFR (CKD-EPI)AfAm Est GFR (CKD-EPI)NonAf Random Glucose Lactic Acid Calcium Phosphorus Magnesium Iron TIBC Iron Saturation Unsaturated IBC Ferritin Total Bilirubin AST ALT Alkaline Phosphatase LD Total 189 Creatine Kinase Troponin I C-Reactive Protein Total Protein Albumin Vitamin B12 Serum Folate TSH 04/11/20 04/11/20 04/11/20 18:39 18:39 19:00 WBC RBC Hgb Hct MCV MCH MCHC RDW Plt Count MPV Absolute Neuts (auto) Neutrophils % Neutrophils % (Manual) Band Neutrophils % Lymphocytes % Lymphocytes % (Manual) Monocytes % Monocytes % (Manual) Eosinophils % Eosinophils % (Manual) Basophils % Basophils % (Manual) Myelocytes % (Man) Promyelocytes % (Man) Blast Cells % (Manual) Nucleated RBC % Metamyelocytes Hypochromia Platelet Estimate Polychromasia Poikilocytosis Anisocytosis Microcytosis Macrocytosis PT with INR INR PTT (Actin FS) VBG pH 7.412 H POC VBG pCO2 38.5 POC VBG pO2 127.3 H VBG HCO3 24.0 VBG O2 Sat (Sherri) 98.6 H VBG Base Excess -0.4 Sodium 136 Potassium 4.1 Chloride 100 Carbon Dioxide 26 Anion Gap 9 BUN 16.1 Creatinine 0.7 Est GFR (CKD-EPI)AfAm 110.82 Est GFR (CKD-EPI)NonAf 95.61 Random Glucose 130 H Lactic Acid Calcium 9.1 Phosphorus Magnesium 2.0 Iron TIBC Iron Saturation Unsaturated IBC Ferritin 595.7 H Total Bilirubin 0.5 AST 19 ALT 14 Alkaline Phosphatase 59 LD Total Creatine Kinase 30 Troponin I < 0.02 C-Reactive Protein 10.9 H Total Protein 7.8 Albumin 2.9 L Vitamin B12 Serum Folate TSH 04/11/20 04/12/20 04/12/20 19:00 06:34 06:34 WBC 11.1 H RBC 3.29 L Hgb 10.1 L Hct 30.5 L MCV 92.5 MCH 30.8 MCHC 33.3 RDW 13.4 Plt Count 244 MPV 8.9 Absolute Neuts (auto) 10.3 H Neutrophils % 92.7 H D Neutrophils % (Manual) 97.0 H Band Neutrophils % 0.0 Lymphocytes % 4.9 L D Lymphocytes % (Manual) 2.0 L Monocytes % 2.1 L Monocytes % (Manual) 1 L Eosinophils % 0.2 D Eosinophils % (Manual) 0.0 Basophils % 0.1 Basophils % (Manual) 0.0 Myelocytes % (Man) 0 Promyelocytes % (Man) 0 Blast Cells % (Manual) 0 Nucleated RBC % 0 Metamyelocytes 0 Hypochromia 0 Platelet Estimate Normal Polychromasia 0 Poikilocytosis 0 Anisocytosis 0 Microcytosis 0 Macrocytosis 0 PT with INR INR PTT (Actin FS) VBG pH POC VBG pCO2 POC VBG pO2 VBG HCO3 VBG O2 Sat (Sherri) VBG Base Excess Sodium 138 Potassium 4.3 Chloride 103 Carbon Dioxide 26 Anion Gap 9 BUN 14.3 Creatinine 0.6 Est GFR (CKD-EPI)AfAm 118.07 Est GFR (CKD-EPI)NonAf 101.87 Random Glucose 143 H Lactic Acid 1.7 Calcium 9.2 Phosphorus 2.6 Magnesium 2.1 Iron 16 L TIBC 158 L Iron Saturation 10 L Unsaturated IBC 142 L Ferritin Total Bilirubin 0.2 AST 17 ALT 15 Alkaline Phosphatase 52 LD Total Creatine Kinase Troponin I C-Reactive Protein Total Protein 7.1 Albumin 2.4 L Vitamin B12 1272 H Serum Folate 19 H TSH 0.46 Active Medications Generic Name Dose Route Start Last Admin Trade Name Freq PRN Reason Stop Dose Admin Albuterol Sulfate 2 puff 04/12/20 08:00 04/12/20 12:30 Ventolin Hfa Inhaler - IH 2 inhaler RQ4H [facility] Administration Albuterol/Ipratropium 1 amp 04/11/20 22:45 04/11/20 23:25 Duoneb - NEB Not Given Q4H JACQUELIN Enoxaparin Sodium 40 mg 04/12/20 10:00 04/12/20 10:10 Lovenox - SQ 40 mg DAILY JACQUELIN Administration Voriconazole 400 mg/ Dextrose 140 mls @ 70 mls/hr 04/11/20 23:30 IVPB Q12H JACQUELIN Ceftriaxone Sodium 1 gm/ 50 mls @ 200 mls/hr 04/13/20 10:00 Dextrose IVPB DAILY [facility] Protocol Influenza Virus Vaccine Quadrival 60 mcg 04/11/20 22:00 Flulaval Quad [id number] IM 04/11/20 22:01 .ONCE ONE Methylprednisolone Sodium Succinate 40 mg 04/12/20 02:00 04/12/20 10:11 Solu-Medrol - IVPUSH 40 mg Q8H-IV JACQUELIN Administration Pneumococcal 13-Valent Conj Vacc 0.5 ml 04/11/20 22:00 Prevnar 13 Syringe - IM 04/11/20 22:01 .ONCE ONE Tiotropium [place] 2 puff 04/12/20 10:00 04/12/20 10:11 Spiriva Respimat IH 2 puff DAILY JACQUELIN Administration NIPPV support BD [place] Medrol Patient has access to his patient portal to get his previous workup at [facility] VTE prophylaxis No smoking Check COVID19 serology Will follow Thank you. Dr Sweet IMAGING: Chest X-Ray: Official Read Pending Chest CTA: Severe centrilobular emphysema is noted. Marked right upper lobe and moderate left upper lobe parenchymal scarring is seen. There is mildly diminished volume of the right upper lobe.A superimposed right upper lobe acute infiltrate would be difficult to exclude on the basis of a single CT exam. Correlate clinically and with follow-up CT. 3.3 cm and 2 cm irregular left upper lobe opacities are noted which may represent primary neoplastic disease versus focal parenchymal scarring. PET/CT evaluation may be considered. Small amount of mucus secretions are seen within the thoracic trachea suggestive of chronic bronchitis. Focal nonspecific pleural thickening is seen within the right lower lobe posteriorly measuring 3.3 x 0.5 cm. Nonspecific mildly enlarged mediastinal and right hilar lymph nodes are noted. Extensive atherosclerotic coronary calcifications are noted. Chronic moderate to marked T7 and mild to moderate T12 vertebral body compression fractures are seen. Cholelithiasis. ASSESSMENT/PLAN: 70M PMH emphysema, COPD (4-5L home O2), chronic upper lung mass(uncertain eitology) presenting with sepsis possibly 2/2 to COPD exacerbation vs flare up of chronic infection. 1) Sepsis possibly 2/2 PNA? Pt with questionable upper lobe infiltrates - Pt sees Dr. Cal Boyce at [facility]. Per Dr. Boyce pt has not been seen in over a year. At last visit had sputum cultures but NOT bronchoscopy. Sputum culuteres were negative. Pt is known to have RUL cavitating infiltrate, last bronch was possibly ~2y ago[address] Dr[address] Boyce did not currently have access to EMR at the time of our conversation but stated that he would get back to me with more detailed records this evening. - Pt tachypneic this morning but vitals otherwise stable, WBC improved but still elevated to 11.1 - Blood culture, Sputum Culture, Urine Legionella pending - ordered quant gold and AFB sputum smear - COVID Swab pending - Ferritin, CRP elevated - continue Ceftriaxione Daily - BiPAP as needed - ID consulted - Pulmnology consulted, appreciate recommendations 2) COPD, Emphysema - Uses 4L at home, currently on BiPAP. Titrate O2 requirements to maintain SpO2> 88% - Duonebs, Spiriva, Solumedrol - Pulmonology consulted 3) Anemia - Hgb of 11.3 - FOBT pending - Iron studies pending 4) Tachycardia - Likely 2/2 to sepsis, will continue to monitor on telemetry - 500 ml bolus of NS given DVT: Lovenox 40 SQ F: 500 ml NS bolus E: Monitor CMP N: Regular diet Dispo: Admitted to telemetry ASSESSMENT/PLAN: Visit type - Emergency Visit Emergency Visit: Yes ED Registration Date: 04/11/20 Care time: The patient presented to the Emergency Department on the above date and was hospitalized for further evaluation of their emergent condition. - New Patient This patient is new to me today: Yes Date on this admission: 04/12/20 - Critical Care Critical Care patient: No - Discharge Referral Referred to [facility] Med P.C.: No ATTENDING PHYSICIAN STATEMENT I saw and evaluated the patient. I reviewed the resident's note and discussed the case with the resident. I agree with the resident's findings and plan as documented. SUBJECTIVE: OBJECTIVE: ASSESSMENT AND PLAN:
--- NOTE | 2020-04-12 17:50 | EKG ---
Test Reason : Blood Pressure : / mmHG Vent. Rate : 134 BPM Atrial Rate : 134 BPM P-R Int : 146 ms QRS Dur : 082 ms QT Int : 284 ms P-R-T Axes : 084 074 068 degrees QTc Int : 424 ms POOR DATA QUALITY, INTERPRETATION MAY BE ADVERSELY AFFECTED SINUS TACHYCARDIA WITH PREMATURE ATRIAL COMPLEXES WITH ABERRANT CONDUCTION RIGHT ATRIAL ENLARGEMENT BORDERLINE ECG NO PREVIOUS ECGS AVAILABLE Confirmed by MD Saturnino, Akhil ([id number]) on 04/12/2020 5:50:32 PM Referred By: Confirmed By:Akhil Matamoros MD
--- NOTE | 2020-04-12 22:54 | PN ---
Progress Note (short form) - Note Progress Note: ID CONSULT DICTATED OBTAIN [facility] PULMONARY RECORDS (AFB CULTURES, QUANTIFERON, ASPERGILLUS SEROLOGY) TX COPD
[2020-04-13] MEDS: methylPREDNISolone NA SUCC 40 MG/1 ML VIAL IVPUSH SCH ×2 (02:52→09:34)
[2020-04-13] MEDS: ALBUTEROL SO4 HFA INHALER IH SCH ×6 (04:00→20:00)
[2020-04-13 07:21] LABS: HEMATOCRIT 31.8 % (35.4-49); HEMOGLOBIN 10.4 GM/dL (11.7-16.9); MCH 30.2 pg (25.7-33.7); MCHC 32.8 g/dl (32.0-35.9); MEAN CELL VOLUME 92.2 fl (80-96); MEAN PLT VOLUME 8.5 fl (7.5-11.1); PLATELET COUNT 293 K/MM3 (134-434); RBC 3.45 M/mm3 (4.00-5.60); RDW 13.3 % (11.9-15.9); WHITE BLOOD COUNT 22.7 K/mm3 (4.0-10.0)
[2020-04-13 07:51] LABS: ALBUMIN 2.6 g/dl (3.4-5.0); BILIRUBIN,TOTAL 0.4 mg/dL (0.2-1); BLOOD UREA NITROGEN 27.6 mg/dL (7-18); CALCIUM 9.8 mg/dL (8.5-10.1); CREATININE 0.7 mg/dL (0.55-1.3); POTASSIUM 4.8 mmol/L (3.5-5.1); TOT PROT 7.4 g/dl (6.4-8.2)
[2020-04-13] MEDS ORDERED: DEXTROSE 5%-WATER - 50 ML IVPB ONE (08:46)
[2020-04-13] MEDS ORDERED: cefTRIAXone SODIUM 1 GM VIAL ONE (08:46)
[2020-04-13] MEDS: ENOXAPARIN NA (PORCINE) 40 MG/0.4 ML DISP.SYRIN SQ SCH (09:34)
[2020-04-13] MEDS: CEFTRIAXONE 1 GM in DEXTROSE 5%-WATER - 50 ML IVPB SCH (09:34)
[2020-04-13] MEDS: TIOTROPIUM BROMIDE 2.5 MCG (SPIRIVA) RESPIMAT INHALER IH SCH ×2 (11:37→12:06)
--- NOTE | 2020-04-13 13:13 | PN ---
Progress Note (short form) - Note Progress Note: Appears more comfortable today. On 50% VM. Feels less SOB and able to expectorate better. Dark sputum. No hemoptysis. Intake & Output 04/10/20 04/11/20 04/12/20 04/13/20 23:59 23:59 23:59 23:59 Intake Total 950 100 Output Total 950 200 Balance 0 -100 Weight 150 lb Last Vital Signs Temp Pulse Resp BP Pulse Ox 98 F 107 H 20 112/73 100 04/13/20 05:00 04/13/20 11:46 04/13/20 05:00 04/13/20 05:00 04/13/20 11:46 Active Medications Albuterol Sulfate (Ventolin Hfa Inhaler -) 2 puff IH RQ4H [facility] Last Admin: 04/13/20 09:32 Dose: 1 inhaler Documented by: Enoxaparin Sodium (Lovenox -) 40 mg SQ DAILY [facility] Last Admin: 04/13/20 09:34 Dose: 40 mg Documented by: Voriconazole 400 mg/ Dextrose 140 mls @ 70 mls/hr IVPB Q12H JACQUELIN Ceftriaxone Sodium 1 gm/ (Dextrose) 50 mls @ 200 mls/hr IVPB DAILY [facility]; Protocol Last Admin: 04/13/20 09:34 Dose: 200 mls/hr Documented by: Influenza Virus Vaccine Quadrival (Flulaval Quad [id number]) 60 mcg IM .ONCE ONE Stop: 04/11/20 22:01 Pneumococcal 13-Valent Conj Vacc (Prevnar 13 Syringe -) 0.5 ml IM .ONCE ONE Stop: 04/11/20 22:01 Tiotropium [place] (Spiriva Respimat) 2 puff IH DAILY [facility] Last Admin: 04/12/20 10:11 Dose: 2 puff Documented by: Constitutional: Yes: Breathing less labored, more comfortable Eyes: Yes: Conjunctiva Clear, EOM Intact HENT: Yes: Atraumatic, Normocephalic Neck: Yes: Supple, Trachea Midline Cardiovascular: Yes: Regular Rate and Rhythm Respiratory: Yes: Less accessory Muscle Use, Cough, Rhonchi, Less Tachypnea, Wheezes. No: Stridor ...Inspection: Yes: WNL ...Clubbing: No Gastrointestinal: Yes: Normal Bowel Sounds, Soft Renal/: Yes: WNL Breast(s): Yes: WNL Musculoskeletal: Yes: WNL Extremities: Yes: WNL Edema: No Peripheral Pulses WNL: Yes Integumentary: Yes: WNL Neurological: Yes: WNL, Alert, Oriented ...Motor Strength: WNL Psychiatric: Yes: WNL, Alert, Oriented Labs: Laboratory Results - last 24 hr 04/13/20 04/13/20 04/13/20 06:51 06:51 06:51 WBC 22.7 H RBC 3.45 L Hgb 10.4 L Hct 31.8 L MCV 92.2 MCH 30.2 MCHC 32.8 RDW 13.3 Plt Count 293 D MPV 8.5 ESR 103 H Sodium 138 Potassium 4.8 Chloride 104 Carbon Dioxide 24 Anion Gap 10 BUN 27.6 H Creatinine 0.7 Est GFR (CKD-EPI)AfAm 110.82 Est GFR (CKD-EPI)NonAf 95.61 Random Glucose 119 H Calcium 9.8 Ferritin 610.4 H Total Bilirubin 0.4 AST 26 ALT 17 Alkaline Phosphatase 51 C-Reactive Protein 4.8 H Total Protein 7.4 Albumin 2.6 L Imaging - Results Chest X-ray: Report Reviewed, Image Reviewed Cat Scan: Report Reviewed, Image Reviewed Problem List - Problems (1) COPD (chronic obstructive pulmonary disease) Code(s): J44.9 - CHRONIC OBSTRUCTIVE PULMONARY DISEASE, UNSPECIFIED (2) Acute exacerbation of chronic obstructive pulmonary disease (COPD) Code(s): J44.1 - CHRONIC OBSTRUCTIVE PULMONARY DISEASE W (ACUTE) EXACERBATION (3) Emphysema lung Code(s): J43.9 - EMPHYSEMA, UNSPECIFIED (4) SOB (shortness of breath) Code(s): R06.02 - SHORTNESS OF BREATH (5) Lung mass Code(s): R91.8 - OTHER NONSPECIFIC ABNORMAL FINDING OF LUNG FIELD (6) Mediastinal adenopathy Code(s): R59.0 - LOCALIZED ENLARGED LYMPH NODES Assessment/Plan VM O2 as tolerated NIPPV support as needed BD [place] Medrol Patient has access to his patient portal to get his previous workup at [facility] VTE prophylaxis No smoking Dr Sweet Problem List - Problems (1) COPD (chronic obstructive pulmonary disease) Code(s): J44.9 - CHRONIC OBSTRUCTIVE PULMONARY DISEASE, UNSPECIFIED (2) Acute exacerbation of chronic obstructive pulmonary disease (COPD) Code(s): J44.1 - CHRONIC OBSTRUCTIVE PULMONARY DISEASE W (ACUTE) EXACERBATION (3) Emphysema lung Code(s): J43.9 - EMPHYSEMA, UNSPECIFIED (4) SOB (shortness of breath) Code(s): R06.02 - SHORTNESS OF BREATH (5) Lung mass Code(s): R91.8 - OTHER NONSPECIFIC ABNORMAL FINDING OF LUNG FIELD (6) Mediastinal adenopathy Code(s): R59.0 - LOCALIZED ENLARGED LYMPH NODES
--- NOTE | 2020-04-13 15:21 | PN ---
Physical Exam: SUBJECTIVE: Patient seen and examined at the bedside, no acute events overnight. Pt states he feels breathing is slightly improved and is now using NRB OBJECTIVE: Vital Signs Period Temp Pulse Resp BP Sys/Martinez Pulse Ox Last 24 Hr 97.2 F-98 F 98-127 20-22 106-114/62-73 97-100 GENERAL: Awake, alert, and fully oriented, in no acute distress. now on 15L NRB HEAD: Normal with no signs of trauma. EARS, NOSE, THROAT: Moist mucous membranes. LUNGS: Poor airway movement b/l. No wheezing or crackles. HEART: Tachycardia without murmur, rub or gallop. ABDOMEN: Soft, nontender, not distended, normoactive bowel sounds, no guarding, no rebound, no masses. UPPER EXTREMITIES: 2+ pulses, warm, well-perfused. No cyanosis. No clubbing. No peripheral edema. LOWER EXTREMITIES: 2+ pulses, warm, well-perfused. No calf tenderness. No peripheral edema. NEUROLOGICAL: Cranial nerves II-XII intact. Normal speech. Normal gait. PSYCHIATRIC: Cooperative. Good eye contact. Appropriate mood and affect. SKIN: Warm, dry, normal turgor, no rashes or lesions noted, normal capillary refill. Laboratory Results - last 24 hr 04/13/20 04/13/20 04/13/20 06:51 06:51 06:51 WBC 22.7 H RBC 3.45 L Hgb 10.4 L Hct 31.8 L MCV 92.2 MCH 30.2 MCHC 32.8 RDW 13.3 Plt Count 293 D MPV 8.5 ESR 103 H Sodium 138 Potassium 4.8 Chloride 104 Carbon Dioxide 24 Anion Gap 10 BUN 27.6 H Creatinine 0.7 Est GFR (CKD-EPI)AfAm 110.82 Est GFR (CKD-EPI)NonAf 95.61 Random Glucose 119 H Calcium 9.8 Ferritin 610.4 H Total Bilirubin 0.4 AST 26 ALT 17 Alkaline Phosphatase 51 C-Reactive Protein 4.8 H Total Protein 7.4 Albumin 2.6 L Active Medications Generic Name Dose Route Start Last Admin Trade Name Freq PRN Reason Stop Dose Admin Albuterol Sulfate 2 puff 04/12/20 08:00 04/13/20 12:45 Ventolin Hfa Inhaler - IH 2 inhaler RQ4H JACQUELIN Administration Enoxaparin Sodium 40 mg 04/12/20 10:00 04/13/20 09:34 Lovenox - SQ 40 mg DAILY JACQUELIN Administration Voriconazole 400 mg/ Dextrose 140 mls @ 70 mls/hr 04/11/20 23:30 IVPB Q12H JACQUELIN Ceftriaxone Sodium 1 gm/ 50 mls @ 200 mls/hr 04/13/20 10:00 04/13/20 09:34 Dextrose IVPB 200 mls/hr DAILY JACQUELIN Administration Protocol Influenza Virus Vaccine Quadrival 60 mcg 04/11/20 22:00 Flulaval Quad [id number] IM 04/11/20 22:01 .ONCE ONE Pneumococcal 13-Valent Conj Vacc 0.5 ml 04/11/20 22:00 Prevnar 13 Syringe - IM 04/11/20 22:01 .ONCE ONE Tiotropium [place] 2 puff 04/12/20 10:00 04/12/20 10:11 Spiriva Respimat IH 2 puff DAILY JACQUELIN Administration IMAGING: Chest X-Ray: Official Read Pending Chest CTA: Severe centrilobular emphysema is noted. Marked right upper lobe and moderate left upper lobe parenchymal scarring is seen. There is mildly diminished volume of the right upper lobe.A superimposed right upper lobe acute infiltrate would be difficult to exclude on the basis of a single CT exam. Correlate clinically and with follow-up CT. 3.3 cm and 2 cm irregular left upper lobe opacities are noted which may represent primary neoplastic disease versus focal parenchymal scarring. PET/CT evaluation may be considered. Small amount of mucus secretions are seen within the thoracic trachea suggestive of chronic bronchitis. Focal nonspecific pleural thickening is seen within the right lower lobe posteriorly measuring 3.3 x 0.5 cm. Nonspecific mildly enlarged mediastinal and right hilar lymph nodes are noted. Extensive atherosclerotic coronary calcifications are noted. Chronic moderate to marked T7 and mild to moderate T12 vertebral body compression fractures are seen. Cholelithiasis. ASSESSMENT/PLAN: 70M PMH emphysema, COPD (4-5L home O2), chronic upper lung mass(uncertain eitology) presenting with sepsis possibly 2/2 to COPD exacerbation vs flare up of chronic infection. 1) Sepsis possibly 2/2 PNA? Pt with questionable upper lobe infiltrates - Pt sees Dr. Cal Boyce at [facility]. Per Dr. Boyce pt has not been seen in over a year. At last visit had sputum cultures but NOT bronchoscopy. Sputum culuteres were negative. Pt is known to have RUL cavitating infiltrate, last bronch was possibly ~2y ago. - F/u on obtaining [facility] records - Pt tachypneic this morning but vitals otherwise stable, WBC improved but still elevated to 11.1 - Blood culture, Sputum Culture, Urine Legionella pending - ordered quant gold and AFB sputum smear - COVID Swab pending - Ferritin, CRP elevated - continue Ceftriaxione Daily - BiPAP as needed - ID consulted - Pulmnology consulted, appreciate recommendations 2) COPD, Emphysema - Uses 4L at home, currently on BiPAP. Titrate O2 requirements to maintain SpO2> 88% - Duonebs, Spiriva - d/c'd solumedrol as pt is currently r/o TB - Pulmonology consulted 3) Anemia - Hgb of 11.3 - FOBT pending - Iron studies pending 4) Tachycardia - Likely 2/2 to sepsis, will continue to monitor on telemetry - 500 ml bolus of NS given DVT: Lovenox 40 SQ F: 500 ml NS bolus E: Monitor CMP N: Regular diet Dispo: Admitted to telemetry Visit type - Emergency Visit Emergency Visit: Yes ED Registration Date: 04/11/20 Care time: The patient presented to the Emergency Department on the above date and was hospitalized for further evaluation of their emergent condition. - New Patient This patient is new to me today: No - Critical Care Critical Care patient: No - Discharge Referral Referred to [facility] Med P.C.: No ATTENDING PHYSICIAN STATEMENT I saw and evaluated the patient. I reviewed the resident's note and discussed the case with the resident. I agree with the resident's findings and plan as documented. SUBJECTIVE: OBJECTIVE: ASSESSMENT AND PLAN:
--- NOTE | 2020-04-13 17:29 | PN ---
Teaching Attending Note Name of Resident: Leydi Boinlla ATTENDING PHYSICIAN STATEMENT I saw and evaluated the patient. I reviewed the resident's note and discussed the case with the resident. I agree with the resident's findings and plan as documented. SUBJECTIVE: Patient is on VM today , happy that he was off the Bipap, better now. OBJECTIVE: Vital Signs Temperature 97.6 F 04/13/20 13:38 Pulse Rate 108 H 04/13/20 15:26 Respiratory Rate 22 H 04/13/20 13:38 Blood Pressure 114/64 04/13/20 13:38 O2 Sat by Pulse Oximetry (%) 100 04/13/20 15:26 PE: per resident's note CBCD WBC 22.7 K/mm3 (4.0-10.0) H 04/13/20 06:51 RBC 3.45 M/mm3 (4.00-5.60) L 04/13/20 06:51 Hgb 10.4 GM/dL (11.7-16.9) L 04/13/20 06:51 Hct 31.8 % (35.4-49) L 04/13/20 06:51 MCV 92.2 fl (80-96) 04/13/20 06:51 MCHC 32.8 g/dl (32.0-35.9) 04/13/20 06:51 RDW 13.3 % (11.9-15.9) 04/13/20 06:51 Plt Count 293 K/MM3 (134-434) D 04/13/20 06:51 MPV 8.5 fl (7.5-11.1) 04/13/20 06:51 CMP Sodium 138 mmol/L (136-145) 04/13/20 06:51 Potassium 4.8 mmol/L (3.5-5.1) 04/13/20 06:51 Chloride 104 mmol/L (98-107) 04/13/20 06:51 Carbon Dioxide 24 mmol/L (21-32) 04/13/20 06:51 Anion Gap 10 MMOL/L (8-16) 04/13/20 06:51 BUN 27.6 mg/dL (7-18) H 04/13/20 06:51 Creatinine 0.7 mg/dL (0.55-1.3) 04/13/20 06:51 Random Glucose 119 mg/dL (74-106) H 04/13/20 06:51 Calcium 9.8 mg/dL (8.5-10.1) 04/13/20 06:51 Total Bilirubin 0.4 mg/dL (0.2-1) 04/13/20 06:51 AST 26 U/L (15-37) 04/13/20 06:51 ALT 17 U/L (13-61) 04/13/20 06:51 Alkaline Phosphatase 51 U/L (45-117) 04/13/20 06:51 Total Protein 7.4 g/dl (6.4-8.2) 04/13/20 06:51 Albumin 2.6 g/dl (3.4-5.0) L 04/13/20 06:51 CARDIAC ENZYMES Creatine Kinase 30 U/L (26-308) 04/11/20 18:39 Troponin I < 0.02 ng/ml (0.00-0.05) 04/11/20 18:39 Home Medications Medication Instructions Recorded Albuterol Sulfate [Proair Hfa] 8.5 gm IH PRN 04/11/20 Cetirizine HCl [Zyrtec -] 10 mg PO PRN 04/11/20 Naproxen Sodium [Aleve] 220 mg PO PRN 04/11/20 Ramipril 1.25 mg PO DAILY 04/11/20 Salmeterol/Fluticasone [Advair 1 inh PO BID 04/11/20 100Mcg/50Mcg -] Theophylline Anhydrous [Domo-24] 150 mg PO BID 04/11/20 Tiotropium [place] [Spiriva] 1 inh PO DAILY 04/11/20 Current Medications Generic Name Dose Route Start Last Admin Trade Name Freq PRN Reason Stop Dose Admin Albuterol Sulfate 2 puff 04/12/20 08:00 04/13/20 15:37 Ventolin Hfa Inhaler - IH 2 inhaler RQ4H JACQUELIN Administration Enoxaparin Sodium 40 mg 04/12/20 10:00 04/13/20 09:34 Lovenox - SQ 40 mg DAILY JACQUELIN Administration Voriconazole 400 mg/ Dextrose 140 mls @ 70 mls/hr 04/11/20 23:30 IVPB Q12H JACQUELIN Ceftriaxone Sodium 1 gm/ 50 mls @ 200 mls/hr 04/13/20 10:00 04/13/20 09:34 Dextrose IVPB 200 mls/hr DAILY JACQUELIN Administration Protocol Influenza Virus Vaccine Quadrival 60 mcg 04/11/20 22:00 Flulaval Quad [id number] IM 04/11/20 22:01 .ONCE ONE Pneumococcal 13-Valent Conj Vacc 0.5 ml 04/11/20 22:00 Prevnar 13 Syringe - IM 04/11/20 22:01 .ONCE ONE Tiotropium [place] 2 puff 04/12/20 10:00 04/13/20 11:37 Spiriva Respimat IH 2 puff DAILY JACQUELIN Administration Chest CTA: Severe centrilobular emphysema is noted. Marked right upper lobe and moderate left upper lobe parenchymal scarring is seen. There is mildly diminis hed volume of the right upper lobe.A superimposed right upper lobe acute infiltrate would be difficult to exclude on the basis of a single CT exam. Correlate clinically and with follow-up CT. 3.3 cm and 2 cm irregular left upper lobe opacities are noted which may represent primary neoplastic disease versus focal parenchymal scarring. PET/CT evaluation may be considered. Small amount of mucus secretions are seen within the thoracic trachea suggestive of chronic bronchitis. Focal nonspecific pleural thickening is seen within the right lower lobe posteriorly measuring 3.3 x 0.5 cm. Nonspecific mildly enlarged mediastinal and right hilar lymph nodes are noted. Extensive atherosclerotic coronary calcifications are noted. Chronic moderate to marked T7 and mild to moderate T12 vertebral body compression fractures are seen. Cholelithiasis. ASSESSMENT AND PLAN: This a patient is a 70yom with Pmhx of emphysema, COPD (4-5L home O2), chronic upper lung mass (unknown eitology) presenting with sepsis with COPD exacerbation and possible with superimposed RUL Pneumonia #Sepsis: due to RUL pneumonia : will start the patient on Rocephin, will try to get the patient's record. 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 ID on the case. # Acute over chronic COPD exacerbation, Emphysema on 4L oxygen at home, currently on BiPAP continue . Titrate O2 requirements to maintain SpO2> 88%, continue Duonebs, Spiriva, Solumedrol, Pulmonology consulted #Anemia: Hgb of 11.3, Iron studies pending DVT: Lovenox 40 SQ Dispo: Admitted to telemetry Follow the records from [facility] follow (AFB CULTURES, QUANTIFERON, ASPERGILLUS SEROLOGY)
--- NOTE | 2020-04-13 18:33 | PN ---
Progress Note, Physician History of Present Illness: AWAKE. SEATED IN BED REPORTS COUGH PRODUCTIVE OF COPIUS YELLOW SPUTUM DENIES HEMOPTYSIS TEMPS DOWN - Current Medication List Current Medications: Active Medications Albuterol Sulfate (Ventolin Hfa Inhaler -) 2 puff IH RQ4H [facility] Last Admin: 04/13/20 15:37 Dose: 2 inhaler Documented by: Enoxaparin Sodium (Lovenox -) 40 mg SQ DAILY [facility] Last Admin: 04/13/20 09:34 Dose: 40 mg Documented by: Voriconazole 400 mg/ Dextrose 140 mls @ 70 mls/hr IVPB Q12H JACQUELIN Ceftriaxone Sodium 1 gm/ (Dextrose) 50 mls @ 200 mls/hr IVPB DAILY [facility]; Protocol Last Admin: 04/13/20 09:34 Dose: 200 mls/hr Documented by: Influenza Virus Vaccine Quadrival (Flulaval Quad ) 60 mcg IM .ONCE ONE Stop: 04/11/20 22:01 Pneumococcal 13-Valent Conj Vacc (Prevnar 13 Syringe -) 0.5 ml IM .ONCE ONE Stop: 04/11/20 22:01 Tiotropium [place] (Spiriva Respimat) 2 puff IH DAILY [facility] Last Admin: 04/13/20 11:37 Dose: 2 puff Documented by: - Objective Vital Signs: Vital Signs Temperature 97.6 F 04/13/20 13:38 Pulse Rate 108 H 04/13/20 15:26 Respiratory Rate 22 H 04/13/20 13:38 Blood Pressure 114/64 04/13/20 13:38 O2 Sat by Pulse Oximetry (%) 100 04/13/20 15:26 Constitutional: Yes: No Distress Eyes: Yes: Conjunctiva Clear Cardiovascular: Yes: Regular Rate and Rhythm, S1, S2 Respiratory: Yes: Diminished Gastrointestinal: Yes: Normal Bowel Sounds, Soft Edema: No Labs: CBC, BMP 04/13/20 06:51 04/13/20 06:51 INR, PTT INR 1.17 (0.83-1.09) H 04/11/20 17:50
[2020-04-14] MEDS: ALBUTEROL SO4 HFA INHALER IH SCH ×7 (02:03→20:53)
[2020-04-14 07:45] LABS: BASO % 0.1 % (0-2.0); EOS % 0.1 % (0-4.5); HEMATOCRIT 34.4 % (35.4-49); HEMOGLOBIN 11.1 GM/dL (11.7-16.9); LYMPH % 3.8 % (8-40); MCH 30.2 pg (25.7-33.7); MCHC 32.2 g/dl (32.0-35.9); MEAN CELL VOLUME 93.9 fl (80-96); MEAN PLT VOLUME 8.3 fl (7.5-11.1); MONO % 3.7 % (3.8-10.2); NEUT % 92.3 % (42.8-82.8); PLATELET COUNT 307 K/MM3 (134-434); RBC 3.66 M/mm3 (4.00-5.60); RDW 13.4 % (11.9-15.9); WHITE BLOOD COUNT 20.8 K/mm3 (4.0-10.0)
[2020-04-14 08:08] LABS: ALBUMIN 2.7 g/dl (3.4-5.0); BILIRUBIN,TOTAL 0.6 mg/dL (0.2-1); BLOOD UREA NITROGEN 32.2 mg/dL (7-18); CALCIUM 9.7 mg/dL (8.5-10.1); CREATININE 0.7 mg/dL (0.55-1.3); POTASSIUM 4.6 mmol/L (3.5-5.1); TOT PROT 7.5 g/dl (6.4-8.2)
[2020-04-14] MEDS ORDERED: cefTRIAXone SODIUM 1 GM VIAL ONE (09:05)
[2020-04-14] MEDS ORDERED: DEXTROSE 5%-WATER - 50 ML IVPB ONE (09:06)
[2020-04-14] MEDS: CEFTRIAXONE 1 GM in DEXTROSE 5%-WATER - 50 ML IVPB SCH (09:09)
[2020-04-14] MEDS: ENOXAPARIN NA (PORCINE) 40 MG/0.4 ML DISP.SYRIN SQ SCH (09:09)
[2020-04-14] MEDS: TIOTROPIUM BROMIDE 2.5 MCG (SPIRIVA) RESPIMAT INHALER IH SCH (09:19)
[2020-04-14 11:43] LABS: ANISOCYTOSIS 1+; MACROCYTOSIS 0; OVALOCYTE 1+; PLATELET ESTIMATE NORMAL
--- NOTE | 2020-04-14 13:29 | PN ---
Progress Note, Physician History of Present Illness: AWAKE. SEATED IN BED SL TACHYPNEIC ON VENTIMASK STILL REPORTS COUGH PRODUCTIVE OF YELLOW SPUTUM DENIES HEMOPTYSIS TEMPS DOWN WBC REMAINS ELEVATED - Current Medication List Current Medications: Active Medications Albuterol Sulfate (Ventolin Hfa Inhaler -) 2 puff IH RQ4H [facility] Last Admin: 04/14/20 12:00 Dose: 1 inhaler Documented by: Enoxaparin Sodium (Lovenox -) 40 mg SQ DAILY [facility] Last Admin: 04/14/20 09:09 Dose: 40 mg Documented by: Voriconazole 400 mg/ Dextrose 140 mls @ 70 mls/hr IVPB Q12H JACQUELIN Ceftriaxone Sodium 1 gm/ (Dextrose) 50 mls @ 200 mls/hr IVPB DAILY [facility]; Protocol Last Admin: 04/14/20 09:09 Dose: 200 mls/hr Documented by: Tiotropium [place] (Spiriva Respimat) 2 puff IH DAILY [facility] Last Admin: 04/14/20 09:19 Dose: 2 puff Documented by: - Objective Vital Signs: Vital Signs Temperature 97.8 F 04/14/20 13:23 Pulse Rate 107 H 04/14/20 13:23 Respiratory Rate 04/14/20 08:43 Blood Pressure 120/56 L 04/14/20 13:23 O2 Sat by Pulse Oximetry (%) 100 04/14/20 09:31 Constitutional: Yes: No Distress Eyes: Yes: Conjunctiva Clear Cardiovascular: Yes: Regular Rate and Rhythm, S1, S2 Respiratory: Yes: Rhonchi Gastrointestinal: Yes: Normal Bowel Sounds, Soft. No: Tenderness Labs: CBC, BMP 04/14/20 06:08 04/14/20 06:08 INR, PTT INR 1.17 (0.83-1.09) H 04/11/20 17:50 Assessment/Plan ACUTE EXACERBATION CHRONIC LUNG DISEASE CHRONIC CHANGES RUL ? SUPERIMPOSED PNEUMONIA ?AFB DISEASE ? ASPERGILLUS ?[facility]M [facility] ORDERED CONTINUE CEFTRIAXONE
--- NOTE | 2020-04-14 13:29 | PN ---
Teaching Attending Note Name of Resident: Rosalind Bradford ATTENDING PHYSICIAN STATEMENT I saw and evaluated the patient. I reviewed the resident's note and discussed the case with the resident. I agree with the resident's findings and plan as documented. SUBJECTIVE: Patient is comfortable on NC today, patient normally on 5 liter NC at home OBJECTIVE: Vital Signs Temperature 97.8 F 04/14/20 13:23 Pulse Rate 107 H 04/14/20 13:23 Respiratory Rate 20 04/14/20 08:43 Blood Pressure 120/56 L 04/14/20 13:23 O2 Sat by Pulse Oximetry (%) 100 04/14/20 09:31 PE: per resident's note CBCD WBC 20.8 K/mm3 (4.0-10.0) H 04/14/20 06:08 RBC 3.66 M/mm3 (4.00-5.60) L 04/14/20 06:08 Hgb 11.1 GM/dL (11.7-16.9) L 04/14/20 06:08 Hct 34.4 % (35.4-49) L 04/14/20 06:08 MCV 93.9 fl (80-96) 04/14/20 06:08 MCHC 32.2 g/dl (32.0-35.9) 04/14/20 06:08 RDW 13.4 % (11.9-15.9) 04/14/20 06:08 Plt Count 307 K/MM3 (134-434) 04/14/20 06:08 MPV 8.3 fl (7.5-11.1) 04/14/20 06:08 CMP Sodium 140 mmol/L (136-145) 04/14/20 06:08 Potassium 4.6 mmol/L (3.5-5.1) 04/14/20 06:08 Chloride 102 mmol/L (98-107) 04/14/20 06:08 Carbon Dioxide 33 mmol/L (21-32) H 04/14/20 06:08 Anion Gap 6 MMOL/L (8-16) L 04/14/20 06:08 BUN 32.2 mg/dL (7-18) H 04/14/20 06:08 Creatinine 0.7 mg/dL (0.55-1.3) 04/14/20 06:08 Random Glucose 113 mg/dL (74-106) H 04/14/20 06:08 Calcium 9.7 mg/dL (8.5-10.1) 04/14/20 06:08 Total Bilirubin 0.6 mg/dL (0.2-1) 04/14/20 06:08 AST 31 U/L (15-37) 04/14/20 06:08 ALT 22 U/L (13-61) 04/14/20 06:08 Alkaline Phosphatase 51 U/L (45-117) 04/14/20 06:08 Total Protein 7.5 g/dl (6.4-8.2) 04/14/20 06:08 Albumin 2.7 g/dl (3.4-5.0) L 04/14/20 06:08 CARDIAC ENZYMES Creatine Kinase 30 U/L (26-308) 04/11/20 18:39 Troponin I < 0.02 ng/ml (0.00-0.05) 04/11/20 18:39 Current Medications Generic Name Dose Route Start Last Admin Trade Name Elmer PRN Reason Stop Dose Admin Albuterol Sulfate 2 puff 04/12/20 08:00 04/14/20 12:00 Ventolin Hfa Inhaler - IH 1 inhaler RQ4H JACQUELIN Administration Enoxaparin Sodium 40 mg 04/12/20 10:00 04/14/20 09:09 Lovenox - SQ 40 mg DAILY JACQUELIN Administration Voriconazole 400 mg/ Dextrose 140 mls @ 70 mls/hr 04/11/20 23:30 IVPB Q12H JACQUELIN Ceftriaxone Sodium 1 gm/ 50 mls @ 200 mls/hr 04/13/20 10:00 04/14/20 09:09 Dextrose IVPB 200 mls/hr DAILY JACQUELIN Administration Protocol Tiotropium [place] 2 puff 04/12/20 10:00 04/14/20 09:19 Spiriva Respimat IH 2 puff DAILY JACQUELIN Administration Home Medications Medication Instructions Recorded Albuterol Sulfate [Proair Hfa] 8.5 gm IH PRN 04/11/20 Cetirizine HCl [Zyrtec -] 10 mg PO PRN 04/11/20 Naproxen Sodium [Aleve] 220 mg PO PRN 04/11/20 Ramipril 1.25 mg PO DAILY 04/11/20 Salmeterol/Fluticasone [Advair 1 inh PO BID 04/11/20 100Mcg/50Mcg -] Theophylline Anhydrous [Domo-24] 150 mg PO BID 04/11/20 Tiotropium [place] [Spiriva] 1 inh PO DAILY 04/11/20 Chest CTA: Severe centrilobular emphysema is noted. Marked right upper lobe and moderate left upper lobe parenchymal scarring is seen. There is mildly diminished volume of the right upper lobe.A superimposed right upper lobe acute infiltrate would be difficult to exclude on the basis of a single CT exam. Correlate clinically and with follow-up CT. 3.3 cm and 2 cm irregular left upper lobe opacities are noted which may represent primary neoplastic disease versus focal parenchymal scarring. PET/CT evaluation may be considered. Small amount of mucus secretions are seen within the thoracic trachea suggestive of chronic bronchitis. Focal nonspecific pleural thickening is seen within the right lower lobe posteriorly measuring 3.3 x 0.5 cm. Nonspecific mildly enlarged mediastinal and right hilar lymph nodes are noted. Extensive atherosclerotic coronary calcifications are noted. Chronic moderate to marked T7 and mild to moderate T12 vertebral body compression fractures are seen. Cholelithiasis. 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 ID on the case. # Acute over chronic COPD exacerbation, Emphysema on 4L oxygen at home, currently on BiPAP continue . Titrate O2 requirements to maintain SpO2> 88%, continue Duonebs, Spiriva, Solumedrol, Pulmonology consulted #Anemia: Hgb of 11.3, Iron studies pending DVT: Lovenox 40 SQ Dispo: Admitted to telemetry Follow the records from [facility] follow (AFB CULTURES, QUANTIFERON, ASPERGILLUS SEROLOGY) on AL today
--- NOTE | 2020-04-14 13:40 | PN ---
Physical Exam: SUBJECTIVE: Patient seen and examined. SOB improving, SaO2 100% on 50% ventimask; now transitioned to 5L nasal cannula OBJECTIVE: Vital Signs Period Temp Pulse Resp BP Sys/Martinez Pulse Ox Last 24 Hr 97.8 F-98.2 F 95-109 20-22 117-122/56-74 100-100 GENERAL: The patient is awake, alert, and fully oriented, in no acute distress. HEENT: NCAT. No lymphadenopathy palpated. Neck supple. MMM. LUNGS: Breath sounds decreased at bilateral bases, fine crackles @ R upper lobe, no wheezes, no accessory muscle use. HEART: Regular rate and rhythm, S1, S2 without murmur, rub or gallop. ABDOMEN: Soft, nontender, nondistended, normoactive bowel sounds, no guarding. EXTREMITIES: 2+ pulses, warm, well-perfused, no edema. NEUROLOGICAL: Cranial nerves II through XII grossly intact. PSYCH: Normal mood, normal affect. SKIN: Warm, dry, normal turgor, no rashes or lesions noted Laboratory Results - last 24 hr 04/13/20 04/14/20 04/14/20 11:35 06:08 06:08 WBC 20.8 H RBC 3.66 L Hgb 11.1 L Hct 34.4 L MCV 93.9 MCH 30.2 MCHC 32.2 RDW 13.4 Plt Count 307 MPV 8.3 Absolute Neuts (auto) 19.2 H Neutrophils % 92.3 H Neutrophils % (Manual) 91.9 H Band Neutrophils % 0.0 Lymphocytes % 3.8 L D Lymphocytes % (Manual) 4.1 L D Monocytes % 3.7 L Monocytes % (Manual) 2 L D Eosinophils % 0.1 Eosinophils % (Manual) 0.0 Basophils % 0.1 Basophils % (Manual) 0.0 Myelocytes % (Man) 0 Promyelocytes % (Man) 0 Blast Cells % (Manual) 0 Nucleated RBC % 0 Metamyelocytes 1 D Hypochromia 0 Platelet Estimate Normal Platelet Comment Present Polychromasia 1+ Poikilocytosis 1+ Basophilic Stippling 1+ Anisocytosis 1+ Microcytosis 1+ Macrocytosis 0 Ovalocytes 1+ D-Dimer 3209 H Sodium 140 Potassium 4.6 Chloride 102 Carbon Dioxide 33 H Anion Gap 6 L BUN 32.2 H Creatinine 0.7 Est GFR (CKD-EPI)AfAm 110.82 Est GFR (CKD-EPI)NonAf 95.61 Random Glucose 113 H Calcium 9.7 Total Bilirubin 0.6 AST 31 ALT 22 Alkaline Phosphatase 51 Total Protein 7.5 Albumin 2.7 L Active Medications Generic Name Dose Route Start Last Admin Trade Name Freq PRN Reason Stop Dose Admin Albuterol Sulfate 2 puff 04/12/20 08:00 04/14/20 12:00 Ventolin Hfa Inhaler - IH 1 inhaler RQ4H JACQUELIN Administration Enoxaparin Sodium 40 mg 04/12/20 10:00 04/14/20 09:09 Lovenox - SQ 40 mg DAILY JACQUELIN Administration Voriconazole 400 mg/ Dextrose 140 mls @ 70 mls/hr 04/11/20 23:30 IVPB Q12H JACQUELIN Ceftriaxone Sodium 1 gm/ 50 mls @ 200 mls/hr 04/13/20 10:00 04/14/20 09:09 Dextrose IVPB 200 mls/hr DAILY JACQUELIN Administration Protocol Tiotropium [place] 2 puff 04/12/20 10:00 04/14/20 09:19 Spiriva Respimat IH 2 puff DAILY JACQUELIN Administration ASSESSMENT/PLAN: 70 y.o. M PMH emphysema, COPD (on 5L home O2), chronic right upper lung mass (uncertain etiology) presenting with sepsis possibly 2/2 to COPD exacerbation vs flare up of chronic infection. #Sepsis 2/2 RUL PNA; r/o overlying acute vs chronic infection - Pt sees Dr. Cal Boyce at [facility]. Per patient, he has a known RUL cavitating infiltrate, last bronch was possibly ~2y ago and states he had a biopsy done but was never told results -Paperwork for medical records sent to [facility] today -tachycardia, cont to monitor-- s/p 500cc NS bolus yesterday -O2 PRN; now on 5L NC, SaO2 97% -Blood cultures neg; f/u final sputum cx, urine ag for leg s.pneumo -f/u quant gold, AFB sputum smear (r/o TB) -F/u aspergillus serology -s/p 1 dose voriconazole in ED; f/u ID recs -Ferritin, CRP elevated -f/u COVID-19 PCR -continue epmpiric ceftriaxone (started 04/13) -BiPAP as needed -ID following- Dr. Acosta -Pulmnology following- Dr. Sweet #COPD, Emphysema -Baseline 4L NC O2 at home -PRN NIPPV -Titrate O2 requirements to maintain SpO2> 88% -continue duonebs, spiriva -holding further steroids as pt is currently r/o TB -Pulmonology following #Anemia -Hgb 11.1 today (10.4 yesterday) -f/u FOBT -Iron studies: likely chronic disease (low iron, high ferritin, low tibc) #DVT PPX: -Lovenox 40mg SQ daily #FEN -no standing fluids -trend & replete lytes prn -Regular diet Dispo: cont to monitor on telemetry Visit type - Emergency Visit Emergency Visit: No - New Patient This patient is new to me today: Yes Date on this admission: 04/14/20 - Critical Care Critical Care patient: No ATTENDING PHYSICIAN STATEMENT I saw and evaluated the patient. I reviewed the resident's note and discussed the case with the resident. I agree with the resident's findings and plan as documented. SUBJECTIVE: OBJECTIVE: ASSESSMENT AND PLAN:
--- NOTE | 2020-04-14 14:54 | PN ---
Progress Note (short form) - Note Progress Note: Appears more comfortable today. Saturating well on 5 L NC O2. Feels less SOB and able to expectorate better. Dark sputum. No hemoptysis. Intake & Output 04/11/20 04/12/20 04/13/20 04/14/20 23:59 23:59 23:59 23:59 Intake Total 950 200 640 Output Total 950 400 600 Balance 0 -200 40 Weight 150 lb Last Vital Signs Temp Pulse Resp BP Pulse Ox 97.8 F 107 H 20 120/56 L 100 04/14/20 13:23 04/14/20 13:23 04/14/20 08:43 04/14/20 13:23 04/14/20 09:31 Active Medications Albuterol Sulfate (Ventolin Hfa Inhaler -) 2 puff IH RQ4H [facility] Last Admin: 04/14/20 12:00 Dose: 1 inhaler Documented by: Enoxaparin Sodium (Lovenox -) 40 mg SQ DAILY [facility] Last Admin: 04/14/20 09:09 Dose: 40 mg Documented by: Voriconazole 400 mg/ Dextrose 140 mls @ 70 mls/hr IVPB Q12H JACQUELIN Ceftriaxone Sodium 1 gm/ (Dextrose) 50 mls @ 200 mls/hr IVPB DAILY [facility]; Protocol Last Admin: 04/14/20 09:09 Dose: 200 mls/hr Documented by: Tiotropium [place] (Spiriva Respimat) 2 puff IH DAILY [facility] Last Admin: 04/14/20 09:19 Dose: 2 puff Documented by: Constitutional: Yes: More comfortable Eyes: Yes: Conjunctiva Clear, EOM Intact HENT: Yes: Atraumatic, Normocephalic Neck: Yes: Supple, Trachea Midline Cardiovascular: Yes: Regular Rate and Rhythm Respiratory: Yes: Less accessory Muscle Use, Cough, Rhonchi, Less Tachypnea, Wheezes. No: Stridor ...Inspection: Yes: WNL ...Clubbing: No Gastrointestinal: Yes: Normal Bowel Sounds, Soft Renal/: Yes: WNL Breast(s): Yes: WNL Musculoskeletal: Yes: WNL Extremities: Yes: WNL Edema: No Peripheral Pulses WNL: Yes Integumentary: Yes: WNL Neurological: Yes: WNL, Alert, Oriented ...Motor Strength: WNL Psychiatric: Yes: WNL, Alert, Oriented Labs: Laboratory Results - last 24 hr 04/13/20 04/14/20 04/14/20 11:35 06:08 06:08 WBC 20.8 H RBC 3.66 L Hgb 11.1 L Hct 34.4 L MCV 93.9 MCH 30.2 MCHC 32.2 RDW 13.4 Plt Count 307 MPV 8.3 Absolute Neuts (auto) 19.2 H Neutrophils % 92.3 H Neutrophils % (Manual) 91.9 H Band Neutrophils % 0.0 Lymphocytes % 3.8 L D Lymphocytes % (Manual) 4.1 L D Monocytes % 3.7 L Monocytes % (Manual) 2 L D Eosinophils % 0.1 Eosinophils % (Manual) 0.0 Basophils % 0.1 Basophils % (Manual) 0.0 Myelocytes % (Man) 0 Promyelocytes % (Man) 0 Blast Cells % (Manual) 0 Nucleated RBC % 0 Metamyelocytes 1 D Hypochromia 0 Platelet Estimate Normal Platelet Comment Present Polychromasia 1+ Poikilocytosis 1+ Basophilic Stippling 1+ Anisocytosis 1+ Microcytosis 1+ Macrocytosis 0 Ovalocytes 1+ D-Dimer 3209 H Sodium 140 Potassium 4.6 Chloride 102 Carbon Dioxide 33 H Anion Gap 6 L BUN 32.2 H Creatinine 0.7 Est GFR (CKD-EPI)AfAm 110.82 Est GFR (CKD-EPI)NonAf 95.61 Random Glucose 113 H Calcium 9.7 Total Bilirubin 0.6 AST 31 ALT 22 Alkaline Phosphatase 51 Total Protein 7.5 Albumin 2.7 L Imaging - Results Chest X-ray: Report Reviewed, Image Reviewed Cat Scan: Report Reviewed, Image Reviewed Problem List - Problems (1) COPD (chronic obstructive pulmonary disease) Code(s): J44.9 - CHRONIC OBSTRUCTIVE PULMONARY DISEASE, UNSPECIFIED (2) Acute exacerbation of chronic obstructive pulmonary disease (COPD) Code(s): J44.1 - CHRONIC OBSTRUCTIVE PULMONARY DISEASE W (ACUTE) EXACERBATION (3) Emphysema lung Code(s): J43.9 - EMPHYSEMA, UNSPECIFIED (4) SOB (shortness of breath) Code(s): R06.02 - SHORTNESS OF BREATH (5) Lung mass Code(s): R91.8 - OTHER NONSPECIFIC ABNORMAL FINDING OF LUNG FIELD (6) Mediastinal adenopathy Code(s): R59.0 - LOCALIZED ENLARGED LYMPH NODES Assessment/Plan VM O2 as tolerated NIPPV support as needed BD TX Medrol : Will start top taper tomorrow Patient has access to his patient portal to get his previous workup at [facility] : paperwork sent VTE prophylaxis No smoking Dr Sweet Problem List - Problems (1) COPD (chronic obstructive pulmonary disease) Code(s): J44.9 - CHRONIC OBSTRUCTIVE PULMONARY DISEASE, UNSPECIFIED (2) Acute exacerbation of chronic obstructive pulmonary disease (COPD) Code(s): J44.1 - CHRONIC OBSTRUCTIVE PULMONARY DISEASE W (ACUTE) EXACERBATION (3) Emphysema lung Code(s): J43.9 - EMPHYSEMA, UNSPECIFIED (4) SOB (shortness of breath) Code(s): R06.02 - SHORTNESS OF BREATH (5) Lung mass Code(s): R91.8 - OTHER NONSPECIFIC ABNORMAL FINDING OF LUNG FIELD (6) Mediastinal adenopathy Code(s): R59.0 - LOCALIZED ENLARGED LYMPH NODES
[2020-04-14] MEDS: methylPREDNISolone NA SUCC 40 MG/1 ML VIAL IVPUSH SCH (20:53)
[2020-04-15] MEDS: methylPREDNISolone NA SUCC 40 MG/1 ML VIAL IVPUSH SCH ×3 (02:26→21:18)
[2020-04-15] MEDS: ALBUTEROL SO4 HFA INHALER IH SCH ×4 (02:31→12:43)
[2020-04-15 06:24] LABS: HEMATOCRIT 35.4 % (35.4-49); HEMOGLOBIN 11.6 GM/dL (11.7-16.9); MCH 30.6 pg (25.7-33.7); MCHC 32.6 g/dl (32.0-35.9); MEAN CELL VOLUME 93.7 fl (80-96); MEAN PLT VOLUME 8.4 fl (7.5-11.1); PLATELET COUNT 320 K/MM3 (134-434); RBC 3.78 M/mm3 (4.00-5.60); RDW 13.4 % (11.9-15.9); WHITE BLOOD COUNT 15.1 K/mm3 (4.0-10.0)
[2020-04-15 06:52] LABS: ALBUMIN 2.7 g/dl (3.4-5.0); BILIRUBIN,TOTAL 0.3 mg/dL (0.2-1); BLOOD UREA NITROGEN 24.9 mg/dL (7-18); CALCIUM 9.3 mg/dL (8.5-10.1); CREATININE 0.7 mg/dL (0.55-1.3); POTASSIUM 4.5 mmol/L (3.5-5.1); TOT PROT 7.2 g/dl (6.4-8.2)
--- NOTE | 2020-04-15 07:28 | PN ---
Progress Note, Physician History of Present Illness: pulmonary alert,,dyspneic at rest,+ cough white-yellow sputum - Current Medication List Current Medications: Active Medications Albuterol Sulfate (Ventolin Hfa Inhaler -) 2 puff IH RQ4H [facility] Last Admin: 04/15/20 03:07 Dose: 2 puff Documented by: Enoxaparin Sodium (Lovenox -) 40 mg SQ DAILY [facility] Last Admin: 04/14/20 09:09 Dose: 40 mg Documented by: Voriconazole 400 mg/ Dextrose 140 mls @ 70 mls/hr IVPB Q12H JACQUELIN Ceftriaxone Sodium 1 gm/ (Dextrose) 50 mls @ 200 mls/hr IVPB DAILY [facility]; Protocol Last Admin: 04/14/20 09:09 Dose: 200 mls/hr Documented by: Methylprednisolone Sodium Succinate (Solu-Medrol -) 40 mg IVPUSH Q8H-IV JACQUELIN Last Admin: 04/15/20 02:26 Dose: 40 mg Documented by: Tiotropium [place] (Spiriva Respimat) 2 puff IH DAILY [facility] Last Admin: 04/14/20 09:19 Dose: 2 puff Documented by: - Objective Vital Signs: Vital Signs Temperature 97.5 F L 04/15/20 05:00 Pulse Rate 115 H 04/15/20 05:00 Respiratory Rate 20 04/15/20 05:00 Blood Pressure 101/65 04/15/20 05:00 O2 Sat by Pulse Oximetry (%) 100 04/15/20 00:05 Constitutional: Yes: Calm, Thin, Other (dyspneic) Eyes: Yes: WNL HENT: Yes: WNL Neck: Yes: WNL Cardiovascular: Yes: Regular Rate and Rhythm, S1, S2 Respiratory: Yes: Diminished Gastrointestinal: Yes: Normal Bowel Sounds, Soft Extremities: Yes: WNL Edema: No Labs: CBC, BMP 04/15/20 05:43 04/15/20 05:43 INR, PTT INR 1.17 (0.83-1.09) H 04/11/20 17:50 Assessment/Plan Problem List - Problems (1) COPD (chronic obstructive pulmonary disease) Code(s): J44.9 - CHRONIC OBSTRUCTIVE PULMONARY DISEASE, UNSPECIFIED (2) Acute exacerbation of chronic obstructive pulmonary disease (COPD) Code(s): J44.1 - CHRONIC OBSTRUCTIVE PULMONARY DISEASE W (ACUTE) EXACERBATION (3) Emphysema lung Code(s): J43.9 - EMPHYSEMA, UNSPECIFIED (4) SOB (shortness of breath) Code(s): R06.02 - SHORTNESS OF BREATH (5) Lung mass Code(s): R91.8 - OTHER NONSPECIFIC ABNORMAL FINDING OF LUNG FIELD (6) Mediastinal adenopathy Code(s): R59.0 - LOCALIZED ENLARGED LYMPH NODES Assessment/Plan VM O2 as tolerated NIPPV support as needed BD TX Medrol symbicort VTE prophylaxis No smoking DR KILGORE Problem List - Problems (1) COPD (chronic obstructive pulmonary disease) Code(s): J44.9 - CHRONIC OBSTRUCTIVE PULMONARY DISEASE, UNSPECIFIED (2) Acute exacerbation of chronic obstructive pulmonary disease (COPD) Code(s): J44.1 - CHRONIC OBSTRUCTIVE PULMONARY DISEASE W (ACUTE) EXACERBATION (3) Emphysema lung Code(s): J43.9 - EMPHYSEMA, UNSPECIFIED (4) SOB (shortness of breath) Code(s): R06.02 - SHORTNESS OF BREATH (5) Lung mass Code(s): R91.8 - OTHER NONSPECIFIC ABNORMAL FINDING OF LUNG FIELD (6) Mediastinal adenopathy Code(s): R59.0 - LOCALIZED ENLARGED LYMPH NODES
[2020-04-15] MEDS ORDERED: DEXTROSE 5%-WATER - 50 ML IVPB ONE (08:51)
[2020-04-15] MEDS ORDERED: cefTRIAXone SODIUM 1 GM VIAL ONE (08:51)
[2020-04-15] MEDS: CEFTRIAXONE 1 GM in DEXTROSE 5%-WATER - 50 ML IVPB SCH (09:52)
[2020-04-15] MEDS: ENOXAPARIN NA (PORCINE) 40 MG/0.4 ML DISP.SYRIN SQ SCH (09:52)
[2020-04-15] MEDS: TIOTROPIUM BROMIDE 2.5 MCG (SPIRIVA) RESPIMAT INHALER IH SCH (10:12)
[2020-04-15] MEDS ORDERED: ALBUTEROL SO4 2.5/IPRATROPIUM 0.5 INH SOL 3 ML VIAL.NEB. NEB PRN (14:25)
--- NOTE | 2020-04-15 15:10 | PN ---
Teaching Attending Note Name of Resident: Elvis Hopkins ATTENDING PHYSICIAN STATEMENT I saw and evaluated the patient. I reviewed the resident's note and discussed the case with the resident. I agree with the resident's findings and plan as documented. SUBJECTIVE: No fever or chills. SOB has improved . no N/V. no CP . cont to have cough that i s productive to clear/yellow sputum ( seen in a cup ) . OBJECTIVE: NAD. Awake, alert, cooperative . NC on. venti mask on and off during conversation CV: RRR Lungs: CTAB. No edema on upper or lower extremities ASSESSMENT AND PLAN: 70 y/o man with h/o COPD on 4-5 L of O2, and a lung mass who presented with SOB and was found to have sepsis . 1- Sepsis due to RUL PNA. CT scan reviewed. infiltrate in RUL could not be r/o. - cont Ceftriaxone - leukocytosis is now worse due to steorids 2- Acute on chronic resp failure , due to acute COPD exacerbation. - cont solu-Medrol but decrease dose - PAtietn was instructed he did not need Venti mask as sat O2 is > 90 on 5 L of NC - add Duo-Nebs since COVID neg - dc spiriva 3- MONA nodular structures and scarring . unclear etiology. - records were requested from [facility] - cont Voriconazole - follow Aspergillus Abs, and B 1,3-D -Glucan - first AFB pending - send another AFB today and one tomorrow - Isolationper Pulm - COVID neg 4- DVT px : lovenox
--- NOTE | 2020-04-15 16:17 | PN ---
Physical Exam: SUBJECTIVE: Patient seen and examined. Yesterday patient was on 5L NC however patient became anxious overnight and requested to use ventimask. Now transitioned back to 5L NC, saturating well. Overnight a few PVCs on tele. OBJECTIVE: Vital Signs Period Temp Pulse Resp BP Sys/Martinez Pulse Ox Last 24 Hr 97.3 F-98.0 F 98-125 19-20 101-132/65-74 98-100 GENERAL: The patient is awake, alert, and fully oriented, in no acute distress. LUNGS: Breath sounds decreased at bilateral bases, fine crackles @ R upper lobe, no wheezes, no accessory muscle use. HEART: Regular rate and rhythm, S1, S2 without murmur, rub or gallop. ABDOMEN: Soft, nontender, nondistended, normoactive bowel sounds, no guarding. EXTREMITIES: 2+ pulses, warm, well-perfused, no edema. NEUROLOGICAL: Cranial nerves II through XII grossly intact. PSYCH: Normal mood, normal affect. SKIN: Psoriasis skin changes b/l LEs Laboratory Results - last 24 hr 04/11/20 04/13/20 04/15/20 19:08 06:51 05:43 WBC 15.1 H RBC 3.78 L Hgb 11.6 L Hct 35.4 MCV 93.7 MCH 30.6 MCHC 32.6 RDW 13.4 Plt Count 320 MPV 8.4 Sodium Potassium Chloride Carbon Dioxide Anion Gap BUN Creatinine Est GFR (CKD-EPI)AfAm Est GFR (CKD-EPI)NonAf Random Glucose Calcium Total Bilirubin AST ALT Alkaline Phosphatase Total Protein Albumin COVID-19 (SUSAN) Not detected Aspergillus Antibody 0.09 04/15/20 05:43 WBC RBC Hgb Hct MCV MCH MCHC RDW Plt Count MPV Sodium 138 Potassium 4.5 Chloride 101 Carbon Dioxide 34 H Anion Gap 4 L BUN 24.9 H Creatinine 0.7 Est GFR (CKD-EPI)AfAm 110.82 Est GFR (CKD-EPI)NonAf 95.61 Random Glucose 148 H Calcium 9.3 Total Bilirubin 0.3 AST 37 ALT 40 Alkaline Phosphatase 50 Total Protein 7.2 Albumin 2.7 L COVID-19 (SUSAN) Aspergillus Antibody Active Medications Generic Name Dose Route Start Last Admin Trade Name Freq PRN Reason Stop Dose Admin Albuterol/Ipratropium 1 amp 04/15/20 20:00 Duoneb - NEB RTID JACQUELIN Albuterol/Ipratropium 1 amp 04/15/20 14:25 Duoneb - NEB Q4H PRN SHORTNESS OF BREATH Enoxaparin Sodium 40 mg 04/12/20 10:00 04/15/20 09:52 Lovenox - SQ 40 mg DAILY JACQUELIN Administration Voriconazole 400 mg/ Dextrose 140 mls @ 70 mls/hr 04/11/20 23:30 IVPB Q12H JACQUELIN Ceftriaxone Sodium 1 gm/ 50 mls @ 200 mls/hr 04/13/20 10:00 04/15/20 09:52 Dextrose IVPB 200 mls/hr DAILY JACQUELIN Administration Protocol Methylprednisolone Sodium Succinate 40 mg 04/15/20 22:00 Solu-Medrol - IVPUSH BID JACQUELIN ASSESSMENT/PLAN: 70 y.o. M PMH emphysema, COPD (on 5L home O2), chronic right upper lung mass (uncertain etiology) presenting with sepsis possibly 2/2 to COPD exacerbation vs flare up of chronic infection. #Sepsis 2/2 RUL PNA; r/o overlying acute vs chronic infection - Pt sees Dr. Cal Boyce at [facility]. Per patient, he has a known RUL cavitating infiltrate, last bronch was possibly ~2y ago and states he had a biopsy done but was never told results -Paperwork for medical records sent to [facility] pending results of prior lung biopsy -tachycardia, cont to monitor -continue O2; 5L NC (home o2) -Blood cultures neg; f/u final sputum cx, urine ag for leg s.pneumo -f/u quant gold, AFB sputum smear x 2 (1st negative) (r/o TB) -aspergillus serology 0.09; f/u [id number] -Ferritin, CRP elevated -COVID-19 PCR negative -continue empiric ceftriaxone (started 04/13) -BiPAP as needed -ID following- Dr. Acosta -Pulmonology following- Dr. Sweet #COPD, Emphysema -Baseline 5L NC O2 at home -PRN NIPPV -Titrate O2 requirements to maintain SpO2> 88% -continue duonebs standing & prn-- spiriva d/c'd -continue steroids; decr to 40mg IV BID x 2 days--then continue taper -Pulmonology following #Anemia -Hgb 11.6 today -f/u FOBT -Iron studies: likely chronic disease (low iron, high ferritin, low tibc) #DVT PPX: -Lovenox 40mg SQ daily #FEN -no standing fluids -trend & replete lytes prn -Regular diet Dispo: cont to monitor on telemetry Visit type - Emergency Visit Emergency Visit: No - New Patient This patient is new to me today: No - Critical Care Critical Care patient: No ATTENDING PHYSICIAN STATEMENT I saw and evaluated the patient. I reviewed the resident's note and discussed the case with the resident. I agree with the resident's findings and plan as documented. SUBJECTIVE: OBJECTIVE: ASSESSMENT AND PLAN:
[2020-04-15] MEDS: ALBUTEROL SO4 2.5/IPRATROPIUM 0.5 INH SOL 3 ML VIAL.NEB. NEB SCH (20:30)
--- NOTE | 2020-04-15 23:54 | PN ---
Progress Note, Physician History of Present Illness: AWAKE. SEATED IN BED SL TACHYPNEIC ON VENTIMASK COUGH PRODUCTIVE OF YELLOW SPUTUM DENIES HEMOPTYSIS TEMPS DOWN WBC IMPROVED - Current Medication List Current Medications: Active Medications Albuterol/Ipratropium (Duoneb -) 1 amp NEB RTID [facility] Last Admin: 04/15/20 20:30 Dose: 1 amp Documented by: Albuterol/Ipratropium (Duoneb -) 1 amp NEB Q4H PRN PRN Reason: SHORTNESS OF BREATH Enoxaparin Sodium (Lovenox -) 40 mg SQ DAILY [facility] Last Admin: 04/15/20 09:52 Dose: 40 mg Documented by: Ceftriaxone Sodium 1 gm/ (Dextrose) 50 mls @ 200 mls/hr IVPB DAILY [facility]; Protocol Last Admin: 04/15/20 09:52 Dose: 200 mls/hr Documented by: Methylprednisolone Sodium Succinate (Solu-Medrol -) 40 mg IVPUSH BID [facility] Last Admin: 04/15/20 21:18 Dose: 40 mg Documented by: - Objective Vital Signs: Vital Signs Temperature 97.7 F 04/15/20 21:00 Pulse Rate 93 H 04/15/20 21:00 Respiratory Rate 18 04/15/20 21:00 Blood Pressure 102/54 L 04/15/20 21:00 O2 Sat by Pulse Oximetry (%) 97 04/15/20 21:44 Constitutional: Yes: No Distress Cardiovascular: Yes: Regular Rate and Rhythm, S1, S2 Respiratory: Yes: Rhonchi Gastrointestinal: Yes: Normal Bowel Sounds, Soft Labs: CBC, BMP 04/15/20 05:43 04/15/20 05:43 INR, PTT INR 1.17 (0.83-1.09) H 04/11/20 17:50 Assessment/Plan ACUTE EXACERBATION CHRONIC LUNG DISEASE CHRONIC CHANGES RUL ? SUPERIMPOSED PNEUMONIA ?AFB DISEASE ? ASPERGILLUS ?NEOPLASM [facility]TAIN [facility] RECORDS ASPERGILLUS SEROLOGY PENDING CONTINUE CEFTRIAXONE
[2020-04-16 07:57] LABS: HEMATOCRIT 33.3 % (35.4-49); HEMOGLOBIN 10.8 GM/dL (11.7-16.9); MCH 30.2 pg (25.7-33.7); MCHC 32.5 g/dl (32.0-35.9); MEAN CELL VOLUME 93.2 fl (80-96); MEAN PLT VOLUME 7.7 fl (7.5-11.1); PLATELET COUNT 277 K/MM3 (134-434); RBC 3.58 M/mm3 (4.00-5.60); RDW 13.3 % (11.9-15.9); WHITE BLOOD COUNT 14.4 K/mm3 (4.0-10.0)
[2020-04-16] MEDS: ALBUTEROL SO4 2.5/IPRATROPIUM 0.5 INH SOL 3 ML VIAL.NEB. NEB SCH ×3 (08:00→20:17)
[2020-04-16 08:22] LABS: ALBUMIN 2.6 g/dl (3.4-5.0); BILIRUBIN,TOTAL 0.4 mg/dL (0.2-1); BLOOD UREA NITROGEN 22.4 mg/dL (7-18); CALCIUM 9.4 mg/dL (8.5-10.1); CREATININE 0.7 mg/dL (0.55-1.3); MAGNESIUM 2.5 mg/dL (1.8-2.4); PHOSPHOROUS 2.7 mg/dL (2.5-4.9); POTASSIUM 4.3 mmol/L (3.5-5.1); TOT PROT 6.7 g/dl (6.4-8.2)
[2020-04-16] MEDS ORDERED: DEXTROSE 5%-WATER - 50 ML IVPB ONE (08:37)
[2020-04-16] MEDS ORDERED: cefTRIAXone SODIUM 1 GM VIAL ONE (08:37)
[2020-04-16] MEDS: CEFTRIAXONE 1 GM in DEXTROSE 5%-WATER - 50 ML IVPB SCH (09:22)
[2020-04-16] MEDS: ENOXAPARIN NA (PORCINE) 40 MG/0.4 ML DISP.SYRIN SQ SCH (09:22)
[2020-04-16] MEDS: methylPREDNISolone NA SUCC 40 MG/1 ML VIAL IVPUSH SCH ×2 (09:22→21:27)
--- NOTE | 2020-04-16 13:39 | PN ---
Progress Note (short form) - Note Progress Note: Appears more comfortable today. Saturating well on 3 L NC O2. Feels less SOB and able to expectorate better. No hemoptysis. Intake & Output 04/13/20 04/14/20 04/15/20 04/16/20 23:59 23:59 23:59 23:59 Intake Total 973 931 7294 120 Output Total 042 375 0555 Balance -200 -60 425 120 Last Vital Signs Temp Pulse Resp BP Pulse Ox 98.1 F 110 H 22 H 105/64 100 04/16/20 09:00 04/16/20 09:00 04/16/20 10:00 04/16/20 09:00 04/16/20 12:13 Active Medications Albuterol/Ipratropium (Duoneb -) 1 amp NEB RTID [facility] Last Admin: 04/16/20 08:00 Dose: 1 amp Documented by: Albuterol/Ipratropium (Duoneb -) 1 amp NEB Q4H PRN PRN Reason: SHORTNESS OF BREATH Enoxaparin Sodium (Lovenox -) 40 mg SQ DAILY [facility] Last Admin: 04/16/20 09:22 Dose: 40 mg Documented by: Ceftriaxone Sodium 1 gm/ (Dextrose) 50 mls @ 200 mls/hr IVPB DAILY [facility]; Protocol Last Admin: 04/16/20 09:22 Dose: 200 mls/hr Documented by: Methylprednisolone Sodium Succinate (Solu-Medrol -) 40 mg IVPUSH BID [facility] Last Admin: 04/16/20 09:22 Dose: 40 mg Documented by: Constitutional: Yes: More comfortable Eyes: Yes: Conjunctiva Clear, EOM Intact HENT: Yes: Atraumatic, Normocephalic Neck: Yes: Supple, Trachea Midline Cardiovascular: Yes: Regular Rate and Rhythm Respiratory: Yes: Less accessory Muscle Use, Cough, Rhonchi, Less Tachypnea, Wheezes. No: Stridor ...Inspection: Yes: WNL ...Clubbing: No Gastrointestinal: Yes: Normal Bowel Sounds, Soft Renal/: Yes: WNL Breast(s): Yes: WNL Musculoskeletal: Yes: WNL Extremities: Yes: WNL Edema: No Peripheral Pulses WNL: Yes Integumentary: Yes: WNL Neurological: Yes: WNL, Alert, Oriented ...Motor Strength: WNL Psychiatric: Yes: WNL, Alert, Oriented Labs: Laboratory Results - last 24 hr 04/12/20 04/13/20 04/16/20 17:52 06:51 07:26 WBC 14.4 H RBC 3.58 L Hgb 10.8 L Hct 33.3 L MCV 93.2 MCH 30.2 MCHC 32.5 RDW 13.3 Plt Count 277 MPV 7.7 Sodium Potassium Chloride Carbon Dioxide Anion Gap BUN Creatinine Est GFR (CKD-EPI)AfAm Est GFR (CKD-EPI)NonAf Random Glucose Calcium Phosphorus Magnesium Total Bilirubin AST ALT Alkaline Phosphatase Total Protein Albumin Aspergillus Antibody 0.09 TB Test (QFT) Nil 0.02 TB Test (QFT) Mitogen 0.04 TB Test (QFT) Ag 1 0.02 TB Test (QFT) Ag 2 0.02 TB Test (QFT) Indeterminate TB Positive Criteria 04/16/20 07:26 WBC RBC Hgb Hct MCV MCH MCHC RDW Plt Count MPV Sodium 140 Potassium 4.3 Chloride 101 Carbon Dioxide 34 H Anion Gap 4 L BUN 22.4 H Creatinine 0.7 Est GFR (CKD-EPI)AfAm 110.82 Est GFR (CKD-EPI)NonAf 95.61 Random Glucose 107 H Calcium 9.4 Phosphorus 2.7 Magnesium 2.5 H Total Bilirubin 0.4 AST 24 ALT 35 Alkaline Phosphatase 45 Total Protein 6.7 Albumin 2.6 L Aspergillus Antibody TB Test (QFT) Nil TB Test (QFT) Mitogen TB Test (QFT) Ag 1 TB Test (QFT) Ag 2 TB Test (QFT) TB Positive Criteria Imaging - Results Chest X-ray: Report Reviewed, Image Reviewed Cat Scan: Report Reviewed, Image Reviewed Problem List - Problems (1) COPD (chronic obstructive pulmonary disease) Code(s): J44.9 - CHRONIC OBSTRUCTIVE PULMONARY DISEASE, UNSPECIFIED (2) Acute exacerbation of chronic obstructive pulmonary disease (COPD) Code(s): J44.1 - CHRONIC OBSTRUCTIVE PULMONARY DISEASE W (ACUTE) EXACERBATION (3) Emphysema lung Code(s): J43.9 - EMPHYSEMA, UNSPECIFIED (4) SOB (shortness of breath) Code(s): R06.02 - SHORTNESS OF BREATH (5) Lung mass Code(s): R91.8 - OTHER NONSPECIFIC ABNORMAL FINDING OF LUNG FIELD (6) Mediastinal adenopathy Code(s): R59.0 - LOCALIZED ENLARGED LYMPH NODES Assessment/Plan NC O2 as tolerated ABX per ID NIPPV support as needed BD TX Medrol taper VTE prophylaxis No smoking Dr Sweet Problem List - Problems (1) COPD (chronic obstructive pulmonary disease) Code(s): J44.9 - CHRONIC OBSTRUCTIVE PULMONARY DISEASE, UNSPECIFIED (2) Acute exacerbation of chronic obstructive pulmonary disease (COPD) Code(s): J44.1 - CHRONIC OBSTRUCTIVE PULMONARY DISEASE W (ACUTE) EXACERBATION (3) Emphysema lung Code(s): J43.9 - EMPHYSEMA, UNSPECIFIED (4) SOB (shortness of breath) Code(s): R06.02 - SHORTNESS OF BREATH (5) Lung mass Code(s): R91.8 - OTHER NONSPECIFIC ABNORMAL FINDING OF LUNG FIELD (6) Mediastinal adenopathy Code(s): R59.0 - LOCALIZED ENLARGED LYMPH NODES
--- NOTE | 2020-04-16 14:43 | PN ---
Physical Exam: SUBJECTIVE: Patient seen and examined. Continued on 5L NC, saturating well. OBJECTIVE: Vital Signs Period Temp Pulse Resp BP Sys/Martinez Pulse Ox Last 24 Hr 97.4 F-98.3 F 85-110 18-22 102-125/54-71 97-100 GENERAL: aaox3, in no acute distress. LUNGS: Breath sounds decreased at bilateral bases, fine crackles @ R upper lobe, no wheezes, no accessory muscle use. HEART: Regular rate and rhythm, S1, S2 without murmur, rub or gallop. ABDOMEN: Soft, ntnd, + bowel sounds, no guarding. EXTREMITIES: 2+ pulses, warm, well-perfused, no edema. PSYCH: Normal mood, normal affect. SKIN: Psoriasis skin changes b/l LEs Laboratory Results - last 24 hr 04/12/20 04/13/20 04/16/20 17:52 06:51 07:26 WBC 14.4 H RBC 3.58 L Hgb 10.8 L Hct 33.3 L MCV 93.2 MCH 30.2 MCHC 32.5 RDW 13.3 Plt Count 277 MPV 7.7 Sodium Potassium Chloride Carbon Dioxide Anion Gap BUN Creatinine Est GFR (CKD-EPI)AfAm Est GFR (CKD-EPI)NonAf Random Glucose Calcium Phosphorus Magnesium Total Bilirubin AST ALT Alkaline Phosphatase Total Protein Albumin Aspergillus Antibody 0.09 TB Test (QFT) Nil 0.02 TB Test (QFT) Mitogen 0.04 TB Test (QFT) Ag 1 0.02 TB Test (QFT) Ag 2 0.02 TB Test (QFT) Indeterminate TB Positive Criteria 04/16/20 07:26 WBC RBC Hgb Hct MCV MCH MCHC RDW Plt Count MPV Sodium 140 Potassium 4.3 Chloride 101 Carbon Dioxide 34 H Anion Gap 4 L BUN 22.4 H Creatinine 0.7 Est GFR (CKD-EPI)AfAm 110.82 Est GFR (CKD-EPI)NonAf 95.61 Random Glucose 107 H Calcium 9.4 Phosphorus 2.7 Magnesium 2.5 H Total Bilirubin 0.4 AST 24 ALT 35 Alkaline Phosphatase 45 Total Protein 6.7 Albumin 2.6 L Aspergillus Antibody TB Test (QFT) Nil TB Test (QFT) Mitogen TB Test (QFT) Ag 1 TB Test (QFT) Ag 2 TB Test (QFT) TB Positive Criteria Active Medications Generic Name Dose Route Start Last Admin Trade Name Freq PRN Reason Stop Dose Admin Albuterol/Ipratropium 1 amp 04/15/20 20:00 04/16/20 14:31 Duoneb - NEB 1 amp RTID JACQUELIN Administration Albuterol/Ipratropium 1 amp 04/15/20 14:25 Duoneb - NEB Q4H PRN SHORTNESS OF BREATH Enoxaparin Sodium 40 mg 04/12/20 10:00 04/16/20 09:22 Lovenox - SQ 40 mg DAILY JACQUELIN Administration Ceftriaxone Sodium 1 gm/ 50 mls @ 200 mls/hr 04/13/20 10:00 04/16/20 09:22 Dextrose IVPB 200 mls/hr DAILY JACQUELIN Administration Protocol Methylprednisolone Sodium Succinate 40 mg 04/15/20 22:00 04/16/20 09:22 Solu-Medrol - IVPUSH 40 mg BID JACQUELIN Administration ASSESSMENT/PLAN: 70 y.o. M PMH emphysema, COPD (on 5L home O2), chronic right upper lung mass (uncertain etiology) presenting with sepsis possibly 2/2 to COPD exacerbation vs flare up of chronic infection. #Sepsis 2/2 RUL PNA; r/o overlying acute vs chronic infection - Pt sees Dr. Cal Boyce at [facility]. Per patient, he has a known RUL cavitating infiltrate, last bronch was possibly ~2y ago and states he had a biopsy done but was never told results -Paperwork for medical records sent to [facility] pending results of prior lung biopsy -tachycardia, cont to monitor -continue O2; 5L NC (home o2) -Blood cultures neg; sputum cx normal resp james, urine ag for leg s.pneumo negative -quant gold negative -AFB sputum smear x 2 (1st negative) (r/o TB) -aspergillus serology 0.09; f/u [id number] -Ferritin, CRP elevated -COVID-19 PCR negative -continue empiric ceftriaxone (started 04/13) -BiPAP as needed -ID following- Dr. Acosta -Pulmonology following- Dr. Sweet #COPD, Emphysema -Baseline 5L NC O2 at home -PRN NIPPV -Titrate O2 requirements to maintain SpO2> 88% -continue duonebs standing & prn-- spiriva d/c'd -continue steroids; 40mg IV BID x 2 days (today day #2)--then continue to taper -Pulmonology following #Anemia -Hgb 10.8 today -Iron studies: likely chronic disease (low iron, high ferritin, low tibc) #DVT PPX: -Lovenox 40mg SQ daily #FEN -no standing fluids -trend & replete lytes prn -Regular diet Dispo: cont to monitor on telemetry Daily failed attempts to contact both meredith and Dr. Boyce patient's county extension agent in regards to lung biopsy results. Medical records release form has been faxed to medical records department at [facility] twice during this hospitalization. Will continue to request. Possible pulm can request county extension agent to county extension agent records. Visit type - Emergency Visit Emergency Visit: No - New Patient This patient is new to me today: No - Critical Care Critical Care patient: No ATTENDING PHYSICIAN STATEMENT I saw and evaluated the patient. I reviewed the resident's note and discussed the case with the resident. I agree with the resident's findings and plan as documented. SUBJECTIVE: OBJECTIVE: ASSESSMENT AND PLAN:
--- NOTE | 2020-04-16 19:12 | PN ---
Teaching Attending Note Name of Resident: Rosalind Bradford ATTENDING PHYSICIAN STATEMENT I saw and evaluated the patient. I reviewed the resident's note and discussed the case with the resident. I agree with the resident's findings and plan as documented. SUBJECTIVE: No fever or chills. NO SOB. NO N/V. OBJECTIVE: NAD. Awake, alert, cooperative . NC on. CV: RRR Lungs: CTAB. No edema on upper or lower extremities. ASSESSMENT AND PLAN: 70 y/o man with h/o COPD on 4-5 L of O2, and a lung mass who presented with SOB and was found to have sepsis . 1- Sepsis due to RUL PNA. - cont Ceftriaxone - leukocytosis is better 2- Acute on chronic resp failure , due to acute COPD exacerbation. - cont solu-Medrol . will decrease dose tomorrow - Duo-Nebs 3- MONA nodular structures and scarring . unclear etiology. - records were requested from [facility] , still did not arrive. message left with service to speak to MD - first AFB pending - send another AFB ( third sample ) 4- DVT px : lovenox
[2020-04-17 06:49] LABS: HEMATOCRIT 31.2 % (35.4-49); HEMOGLOBIN 10.1 GM/dL (11.7-16.9); MCH 30.5 pg (25.7-33.7); MCHC 32.5 g/dl (32.0-35.9); MEAN CELL VOLUME 93.7 fl (80-96); MEAN PLT VOLUME 8.3 fl (7.5-11.1); PLATELET COUNT 258 K/MM3 (134-434); RBC 3.33 M/mm3 (4.00-5.60); RDW 13.9 % (11.9-15.9); WHITE BLOOD COUNT 13.2 K/mm3 (4.0-10.0)
[2020-04-17 07:05] LABS: ALBUMIN 2.3 g/dl (3.4-5.0); BILIRUBIN,TOTAL 0.3 mg/dL (0.2-1); BLOOD UREA NITROGEN 22.8 mg/dL (7-18); CALCIUM 8.8 mg/dL (8.5-10.1); CREATININE 0.6 mg/dL (0.55-1.3); POTASSIUM 4.8 mmol/L (3.5-5.1)
[2020-04-17] MEDS ORDERED: cefTRIAXone SODIUM 1 GM VIAL ONE (08:20)
[2020-04-17] MEDS ORDERED: DEXTROSE 5%-WATER - 50 ML IVPB ONE (08:20)
[2020-04-17] MEDS: ALBUTEROL SO4 2.5/IPRATROPIUM 0.5 INH SOL 3 ML VIAL.NEB. NEB SCH ×3 (08:24→20:25)
[2020-04-17] MEDS: CEFTRIAXONE 1 GM in DEXTROSE 5%-WATER - 50 ML IVPB SCH ×2 (08:51→11:25)
[2020-04-17] MEDS: methylPREDNISolone NA SUCC 40 MG/1 ML VIAL IVPUSH SCH ×2 (08:52→11:25)
[2020-04-17] MEDS: ENOXAPARIN NA (PORCINE) 40 MG/0.4 ML DISP.SYRIN SQ SCH ×2 (08:52→11:25)
--- NOTE | 2020-04-17 14:33 | PN ---
Progress Note (short form) - Note Progress Note: Continues to clinically improve. NIPPV was discontinued. NAD on NC O2. No hemoptysis. Intake & Output 04/14/20 04/15/20 04/16/20 04/17/20 23:59 23:59 23:59 23:59 Intake Total 690 1450 340 200 Output Total 750 1025 200 400 Balance -60 425 140 -200 Last Vital Signs Temp Pulse Resp BP Pulse Ox 98.2 F 80 20 114/75 97 04/17/20 10:00 04/17/20 10:00 04/17/20 10:00 04/17/20 10:00 04/17/20 10:00 Active Medications Albuterol/Ipratropium (Duoneb -) 1 amp NEB RTID [facility] Last Admin: 04/17/20 08:24 Dose: 1 amp Documented by: Albuterol/Ipratropium (Duoneb -) 1 amp NEB Q4H PRN PRN Reason: SHORTNESS OF BREATH Enoxaparin Sodium (Lovenox -) 40 mg SQ DAILY [facility] Last Admin: 04/17/20 11:25 Dose: Not Given Documented by: Ceftriaxone Sodium 1 gm/ (Dextrose) 50 mls @ 200 mls/hr IVPB DAILY [facility]; Protocol Last Admin: 04/17/20 11:25 Dose: Not Given Documented by: Methylprednisolone Sodium Succinate (Solu-Medrol -) 40 mg IVPUSH BID [facility] Last Admin: 04/17/20 11:25 Dose: Not Given Documented by: Constitutional: Yes: More comfortable Eyes: Yes: Conjunctiva Clear, EOM Intact HENT: Yes: Atraumatic, Normocephalic Neck: Yes: Supple, Trachea Midline Cardiovascular: Yes: Regular Rate and Rhythm Respiratory: Yes: Less accessory Muscle Use, Cough, Rhonchi, Less Tachypnea, Wheezes. No: Stridor ...Inspection: Yes: WNL ...Clubbing: No Gastrointestinal: Yes: Normal Bowel Sounds, Soft Renal/: Yes: WNL Breast(s): Yes: WNL Musculoskeletal: Yes: WNL Extremities: Yes: WNL Edema: No Peripheral Pulses WNL: Yes Integumentary: Yes: WNL Neurological: Yes: WNL, Alert, Oriented ...Motor Strength: WNL Psychiatric: Yes: WNL, Alert, Oriented Labs: Laboratory Results - last 24 hr 04/14/20 04/17/20 04/17/20 06:08 05:15 05:15 WBC 13.2 H RBC 3.33 L Hgb 10.1 L Hct 31.2 L MCV 93.7 MCH 30.5 MCHC 32.5 RDW 13.9 Plt Count 258 MPV 8.3 Sodium 141 Potassium 4.8 Chloride 103 Carbon Dioxide 34 H Anion Gap 4 L BUN 22.8 H Creatinine 0.6 Est GFR (CKD-EPI)AfAm 118.07 Est GFR (CKD-EPI)NonAf 101.87 Random Glucose 118 H Calcium 8.8 Total Bilirubin 0.3 AST 21 ALT 32 Alkaline Phosphatase 42 L Total Protein 6.0 L Albumin 2.3 L Beta-(1,3)-D-Glucan 31 Imaging - Results Chest X-ray: Report Reviewed, Image Reviewed Cat Scan: Report Reviewed, Image Reviewed Problem List - Problems (1) COPD (chronic obstructive pulmonary disease) Code(s): J44.9 - CHRONIC OBSTRUCTIVE PULMONARY DISEASE, UNSPECIFIED (2) Acute exacerbation of chronic obstructive pulmonary disease (COPD) Code(s): J44.1 - CHRONIC OBSTRUCTIVE PULMONARY DISEASE W (ACUTE) EXACERBATION (3) Emphysema lung Code(s): J43.9 - EMPHYSEMA, UNSPECIFIED (4) SOB (shortness of breath) Code(s): R06.02 - SHORTNESS OF BREATH (5) Lung mass Code(s): R91.8 - OTHER NONSPECIFIC ABNORMAL FINDING OF LUNG FIELD (6) Mediastinal adenopathy Code(s): R59.0 - LOCALIZED ENLARGED LYMPH NODES Assessment/Plan NC O2 as tolerated ABX per ID BD TX Steroid taper VTE prophylaxis No smoking Dr Sweet Problem List - Problems (1) COPD (chronic obstructive pulmonary disease) Code(s): J44.9 - CHRONIC OBSTRUCTIVE PULMONARY DISEASE, UNSPECIFIED (2) Acute exacerbation of chronic obstructive pulmonary disease (COPD) Code(s): J44.1 - CHRONIC OBSTRUCTIVE PULMONARY DISEASE W (ACUTE) EXACERBATION (3) Emphysema lung Code(s): J43.9 - EMPHYSEMA, UNSPECIFIED (4) SOB (shortness of breath) Code(s): R06.02 - SHORTNESS OF BREATH (5) Lung mass Code(s): R91.8 - OTHER NONSPECIFIC ABNORMAL FINDING OF LUNG FIELD (6) Mediastinal adenopathy Code(s): R59.0 - LOCALIZED ENLARGED LYMPH NODES
--- NOTE | 2020-04-17 15:09 | PN ---
Physical Exam: SUBJECTIVE: Patient seen and examined at bedside. No acute events overnight. OBJECTIVE: Vital Signs Period Temp Pulse Resp BP Sys/Martinez Pulse Ox Last 24 Hr 97.9 F-98.2 F 80-102 20-20 109-117/57-75 97-97 GENERAL: The patient is awake, alert, and fully oriented, in no acute distress. HEENT: NCAT. MMM. LUNGS: LLL crackles, no wheezes, no accessory muscle use. HEART: Regular rate and rhythm, S1, S2 without murmur, rub or gallop. ABDOMEN: Soft, nontender, nondistended, normoactive bowel sounds, no guarding EXTREMITIES: 2+ pulses, warm, well-perfused, no edema. NEUROLOGICAL: Cranial nerves II through XII grossly intact. GENITOURINARY: Ryder in place draining yellow urine; no signs of penile trauma or bleeding SKIN: Warm, dry, normal turgor, no rashes or lesions noted Laboratory Results - last 24 hr 04/14/20 04/17/20 04/17/20 06:08 05:15 05:15 WBC 13.2 H RBC 3.33 L Hgb 10.1 L Hct 31.2 L MCV 93.7 MCH 30.5 MCHC 32.5 RDW 13.9 Plt Count 258 MPV 8.3 Sodium 141 Potassium 4.8 Chloride 103 Carbon Dioxide 34 H Anion Gap 4 L BUN 22.8 H Creatinine 0.6 Est GFR (CKD-EPI)AfAm 118.07 Est GFR (CKD-EPI)NonAf 101.87 Random Glucose 118 H Calcium 8.8 Total Bilirubin 0.3 AST 21 ALT 32 Alkaline Phosphatase 42 L Total Protein 6.0 L Albumin 2.3 L Beta-(1,3)-D-Glucan 31 Active Medications Generic Name Dose Route Start Last Admin Trade Name Freq PRN Reason Stop Dose Admin Albuterol/Ipratropium 1 amp 04/15/20 20:00 04/17/20 14:37 Duoneb - NEB 1 amp RTID JACQUELIN Administration Albuterol/Ipratropium 1 amp 04/15/20 14:25 Duoneb - NEB Q4H PRN SHORTNESS OF BREATH Enoxaparin Sodium 40 mg 04/12/20 10:00 04/17/20 11:25 Lovenox - SQ Not Given DAILY JACQUELIN Ceftriaxone Sodium 1 gm/ 50 mls @ 200 mls/hr 04/13/20 10:00 04/17/20 11:25 Dextrose IVPB Not Given DAILY [facility] Protocol Methylprednisolone Sodium Succinate 40 mg 04/15/20 22:00 04/17/20 11:25 Solu-Medrol - IVPUSH Not Given BID JACQUELIN 70 y.o. M PMH emphysema, COPD (on 5L home O2), chronic right upper lung mass (uncertain etiology) presenting with sepsis possibly 2/2 to COPD exacerbation vs flare up of chronic infection. #Sepsis 2/2 RUL PNA -ID consulted; cont Ceftriaxone 1gm QD, day 5 -Pulm following; will discuss findings of AFb and TB lab results -Per Dr. Cal Boyce at [facility], pt has not followed up in a year. Biopsy done in 2018 showed no malignant cells, only chronic inflammatory changes. Has known cavitary RUL lesion for over a year as well as MONA opacity seen on CT scan in 2019. Pt never returned after biopsy for follow up visit. -continue O2; 5L NC (home o2) -BCx neg, Sp Cx neg, urine ag for leg s.pneumo negative -quant gold negative -AFB sputum smear x 2 (1st negative) (r/o TB) -aspergillus serology 0.09; f/u [id number] -Ferritin, CRP elevated -COVID-19 PCR negative -BiPAP as needed #COPD, Emphysema; at baseline 5L NC O2 at home -PRN NIPPV -Titrate O2 requirements to maintain SpO2> 88% -continue duonebs standing & prn -Switch to PO Prednisone 40 QD -Pulmonology following -Pre and post #Anemia -Hgb 10.1 today -Iron studies: likely chronic disease (low iron, high ferritin, low tibc) #DVT PPX: -Lovenox 40mg SQ daily #FEN -no standing fluids -trend & replete lytes prn -Regular diet Dispo: cont to monitor on telemetry Visit type - Emergency Visit Emergency Visit: Yes ED Registration Date: 04/11/20 Care time: The patient presented to the Emergency Department on the above date and was hospitalized for further evaluation of their emergent condition. - New Patient This patient is new to me today: No - Critical Care Critical Care patient: No ATTENDING PHYSICIAN STATEMENT I saw and evaluated the patient. I reviewed the resident's note and discussed the case with the resident. I agree with the resident's findings and plan as documented. SUBJECTIVE: OBJECTIVE: ASSESSMENT AND PLAN:
--- NOTE | 2020-04-17 18:07 | PN ---
Teaching Attending Note Name of Resident: Tran Shukla ATTENDING PHYSICIAN STATEMENT I saw and evaluated the patient. I reviewed the resident's note and discussed the case with the resident. I agree with the resident's findings and plan as documented. SUBJECTIVE: No fever or chills. no CESAR , no pain . SOB is better OBJECTIVE: NAD. Awake, alert, cooperative . NC on. CV: RRR Lungs: CTAB. No edema on upper or lower extremities. ASSESSMENT AND PLAN: 70 y/o man with h/o COPD on 4-5 L of O2, and a lung mass who presented with SOB and was found to have sepsis . 1- Sepsis due to RUL PNA. - cont Ceftriaxone day 5. will d/w ID po abx tomorrow - leukocytosis is better . suspect persistent elevation due to steroids 2- Acute on chronic resp failure , due to acute COPD exacerbation. 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 - team spoke to Pulm at [facility]: biopsy and cx from RUL lesion was done in 2018. No malignancy was found , no cx grew. he did not follow up fro results after that. MONA findings are old too. - follow with out pt pulm after dc - follow AFB results - will d/w without pulm 4- DVT px : lovenox possible dc tomorrow
[2020-04-18 07:13] LABS: BASO % 0.2 % (0-2.0); EOS % 3.2 % (0-4.5); HEMOGLOBIN 10.4 GM/dL (11.7-16.9); LYMPH % 9.5 % (8-40); MCH 30.3 pg (25.7-33.7); MCHC 32.5 g/dl (32.0-35.9); MEAN CELL VOLUME 93.3 fl (80-96); MEAN PLT VOLUME 8.4 fl (7.5-11.1); MONO % 5.3 % (3.8-10.2); NEUT % 81.8 % (42.8-82.8); PLATELET COUNT 266 K/MM3 (134-434); RBC 3.42 M/mm3 (4.00-5.60); RDW 13.7 % (11.9-15.9); WHITE BLOOD COUNT 14.6 K/mm3 (4.0-10.0)
[2020-04-18 07:39] LABS: ALBUMIN 2.4 g/dl (3.4-5.0); BILIRUBIN,TOTAL 0.3 mg/dL (0.2-1); BLOOD UREA NITROGEN 17.2 mg/dL (7-18); CALCIUM 8.8 mg/dL (8.5-10.1); CREATININE 0.5 mg/dL (0.55-1.3); POTASSIUM 3.9 mmol/L (3.5-5.1)
[2020-04-18] MEDS ORDERED: DEXTROSE 5%-WATER - 50 ML IVPB ONE (08:20)
[2020-04-18] MEDS ORDERED: cefTRIAXone SODIUM 1 GM VIAL ONE (08:20)
[2020-04-18] MEDS: ALBUTEROL SO4 2.5/IPRATROPIUM 0.5 INH SOL 3 ML VIAL.NEB. NEB SCH ×3 (08:36→20:35)
[2020-04-18] MEDS: CEFTRIAXONE 1 GM in DEXTROSE 5%-WATER - 50 ML IVPB SCH (09:39)
[2020-04-18] MEDS: predniSONE 20 MG TABLET (UD) PO SCH (09:39)
[2020-04-18] MEDS: ENOXAPARIN NA (PORCINE) 40 MG/0.4 ML DISP.SYRIN SQ SCH (09:39)
[2020-04-18 10:26] LABS: ANISOCYTOSIS 1+; MACROCYTOSIS 0; OVALOCYTE 1+; PLATELET ESTIMATE NORMAL
--- NOTE | 2020-04-18 10:34 | PN ---
Progress Note (short form) - Note Progress Note: PULMONARY CHART REVIEWED PATIENT STATES HE WAS IMPROVED YESTERDAY BUT TODAY FEELS WIPED OUT HE HAS A GERIATRIC PSYCHIATRIST VIA [facility] AND HAD AN UNREVEALING WORKUP AT THAT TIME 2017. SITTING ON SIDE OF BED NASAL O2/V/M ON VSS/AFEBRILE PALE DIMINISHED S1S2 BS+ NO EDEMA LABS/MEDS/NOTES/IMAGES REVIEWED - Problems (1) COPD (chronic obstructive pulmonary disease) Code(s): J44.9 - CHRONIC OBSTRUCTIVE PULMONARY DISEASE, UNSPECIFIED (2) Acute exacerbation of chronic obstructive pulmonary disease (COPD) Code(s): J44.1 - CHRONIC OBSTRUCTIVE PULMONARY DISEASE W (ACUTE) EXACERBATION (3) Emphysema lung Code(s): J43.9 - EMPHYSEMA, UNSPECIFIED (4) SOB (shortness of breath) Code(s): R06.02 - SHORTNESS OF BREATH (5) Lung mass Code(s): R91.8 - OTHER NONSPECIFIC ABNORMAL FINDING OF LUNG FIELD (6) Mediastinal adenopathy Code(s): R59.0 - LOCALIZED ENLARGED LYMPH NODES O2 to keep sat 90% or above ABX per ID BD TX Steroid taper VTE prophylaxis Would continue treatment today in hospital Estee DOSS MD
[2020-04-18] MEDS ORDERED: PATIENT'S OWN MEDICATION (NON-FORMULARY) (Naproxen Sodium [Aleve] 220 MG) PO SCH (11:30)
[2020-04-18] MEDS ORDERED: ACETAMINOPHEN 325 MG TABLET (FP) ONE (11:32)
[2020-04-18] MEDS ORDERED: NAPROXEN 250 MG TABLET PO PRN (11:34)
[2020-04-18] MEDS: ACETAMINOPHEN 325 MG TABLET (FP) PO PRN (11:37)
--- NOTE | 2020-04-18 11:40 | PN ---
Physical Exam: SUBJECTIVE: Patient seen and examined at bedside. Pt complains of chest pressure but is relieved when sitting up and hunched over table. Also has shortness of breath but is doing better on ventimask. Denies f/c, n/v, abd pain, urinary/bowel symptoms. OBJECTIVE: Vital Signs Period Temp Pulse Resp BP Sys/Martinez Pulse Ox Last 24 Hr 97.8 F-98.4 F 99-117 20-20 101-123/43-68 97-100 GENERAL: AAOx3. Elderly male, mildly uncomfortable sitting in bed. HEENT: NCAT. MMM. LUNGS: Decreased breath sounds throughout. HEART: Regular rate and rhythm, S1, S2 without murmur, rub or gallop. ABDOMEN: Soft, nontender, nondistended, normoactive bowel sounds, no guarding EXTREMITIES: 2+ pulses, warm, well-perfused, no edema. NEUROLOGICAL: Cranial nerves II through XII grossly intact. SKIN: Warm, dry, normal turgor, no rashes or lesions noted Laboratory Results - last 24 hr 04/18/20 04/18/20 05:37 05:37 WBC 14.6 H RBC 3.42 L Hgb 10.4 L Hct 32.0 L MCV 93.3 MCH 30.3 MCHC 32.5 RDW 13.7 Plt Count 266 MPV 8.4 Absolute Neuts (auto) 12.0 H Neutrophils % 81.8 Neutrophils % (Manual) 70.2 D Band Neutrophils % 0.0 Lymphocytes % 9.5 D Lymphocytes % (Manual) 16.0 D Monocytes % 5.3 Monocytes % (Manual) 5 D Eosinophils % 3.2 D Eosinophils % (Manual) 6.4 H D Basophils % 0.2 Basophils % (Manual) 0.0 Myelocytes % (Man) 0 Promyelocytes % (Man) 0 Blast Cells % (Manual) 0 Nucleated RBC % 0 Metamyelocytes 0 D Hypochromia 0 Platelet Estimate Normal Platelet Comment Present Polychromasia 1+ Poikilocytosis 1+ Basophilic Stippling 1+ Anisocytosis 1+ Microcytosis 1+ Macrocytosis 0 Spherocytes 1+ Ovalocytes 1+ Stomatocytes 1+ Sodium 140 Potassium 3.9 Chloride 102 Carbon Dioxide 33 H Anion Gap 5 L BUN 17.2 Creatinine 0.5 L Est GFR (CKD-EPI)AfAm 127.25 Est GFR (CKD-EPI)NonAf 109.79 Random Glucose 80 Calcium 8.8 Total Bilirubin 0.3 AST 20 ALT 34 Alkaline Phosphatase 41 L Troponin I 0.03 Total Protein 6.0 L Albumin 2.4 L Active Medications Generic Name Dose Route Start Last Admin Trade Name Freq PRN Reason Stop Dose Admin Acetaminophen 650 mg 04/18/20 11:27 Tylenol - PO Q6H PRN Fever Albuterol/Ipratropium 1 amp 04/15/20 20:00 04/18/20 08:36 Duoneb - NEB Not Given RTID JACQUELIN Albuterol/Ipratropium 1 amp 04/15/20 14:25 Duoneb - NEB Q4H PRN SHORTNESS OF BREATH Enoxaparin Sodium 40 mg 04/12/20 10:00 04/18/20 09:39 Lovenox - SQ 40 mg DAILY JACQUELIN Administration Ceftriaxone Sodium 1 gm/ 50 mls @ 200 mls/hr 04/13/20 10:00 04/18/20 09:39 Dextrose IVPB 200 mls/hr DAILY JACQUELIN Administration Protocol Non-Formulary Medication 220 mg 04/18/20 11:34 Naproxen Sodium [Aleve] PO Q6H PRN PAIN LEVEL 6-10 Prednisone 40 mg 04/18/20 10:00 04/18/20 09:39 Deltasone - PO 40 mg DAILY JACQUELIN Administration ASSESSMENT/PLAN: 70 y.o. M PMH emphysema, COPD (on 5L home O2), chronic right upper lung mass (uncertain etiology) presenting with sepsis possibly 2/2 to COPD exacerbation vs flare up of chronic infection. #Sepsis 2/2 RUL PNA -ID consulted; currently on Ceftriaxone 1gm QD, day 5; will discuss with ID regarding abx duration -Pulm following; will discuss findings of AFb and TB lab results -Per Dr. Cal Boyce at [facility], pt has not followed up in a year. Biopsy d one in 2018 showed no malignant cells, only chronic inflammatory changes. Has known cavitary RUL lesion for over a year as well as MONA opacity seen on CT scan in 2019. Pt never returned after biopsy for follow up visit. -continue O2; 5L NC (home o2) -BCx neg, Sp Cx neg, Urine Ag for leg S. pneumo negative -quant gold negative -AFB sputum smear x 2 (1st negative) (r/o TB) -aspergillus serology 0.09; f/u [id number] -Ferritin, CRP elevated -COVID-19 PCR negative -BiPAP as needed #COPD, Emphysema; at baseline 5L NC O2 at home -PRN NIPPV -Titrate O2 requirements to maintain SpO2> 88% -continue duonebs standing & prn -Switch to PO Prednisone 40 QD -Pulmonology following -Pre and post #Anemia; Stable. -Hgb 10.4 today -Iron studies: likely chronic disease (low iron, high ferritin, low tibc) #DVT PPX: -Lovenox 40mg SQ daily #FEN -no standing fluids -trend & replete lytes prn -Regular diet Dispo: cont to monitor on telemetry Visit type - Emergency Visit Emergency Visit: Yes ED Registration Date: 04/11/20 Care time: The patient presented to the Emergency Department on the above date and was hospitalized for further evaluation of their emergent condition. - New Patient This patient is new to me today: No - Critical Care Critical Care patient: No ATTENDING PHYSICIAN STATEMENT I saw and evaluated the patient. I reviewed the resident's note and discussed the case with the resident. I agree with the resident's findings and plan as documented. SUBJECTIVE: OBJECTIVE: ASSESSMENT AND PLAN:
[2020-04-18] MEDS ORDERED: PT OWN MED DRAWER 7, Y5N ONE (12:12)
[2020-04-18] MEDS ORDERED: METOPROLOL TARTRATE 5 MG/5 ML VIAL IVPUSH PRN (12:24)
--- NOTE | 2020-04-18 12:37 | PN ---
Teaching Attending Note Name of Resident: Geraldine Viveros ATTENDING PHYSICIAN STATEMENT I saw and evaluated the patient. I reviewed the resident's note and discussed the case with the resident. I agree with the resident's findings and plan as documented. SUBJECTIVE: Patient reports feeling tired and short of breath today. OBJECTIVE: Vital Signs Period Temp Pulse Resp BP Sys/Martinez Pulse Ox Last 24 Hr 97.8 F-98.4 F 99-117 20-20 101-123/43-68 97-100 HEART: S1S2, RRR LUNGS: Clear with decreased BS ABDOMEN: Soft, non-tender, non-distended, normal BS EXTREMITIES: No edema Laboratory Results - last 24 hr 04/18/20 04/18/20 05:37 05:37 WBC 14.6 H RBC 3.42 L Hgb 10.4 L Hct 32.0 L MCV 93.3 MCH 30.3 MCHC 32.5 RDW 13.7 Plt Count 266 MPV 8.4 Absolute Neuts (auto) 12.0 H Neutrophils % 81.8 Neutrophils % (Manual) 70.2 D Band Neutrophils % 0.0 Lymphocytes % 9.5 D Lymphocytes % (Manual) 16.0 D Monocytes % 5.3 Monocytes % (Manual) 5 D Eosinophils % 3.2 D Eosinophils % (Manual) 6.4 H D Basophils % 0.2 Basophils % (Manual) 0.0 Myelocytes % (Man) 0 Promyelocytes % (Man) 0 Blast Cells % (Manual) 0 Nucleated RBC % 0 Metamyelocytes 0 D Hypochromia 0 Platelet Estimate Normal Platelet Comment Present Polychromasia 1+ Poikilocytosis 1+ Basophilic Stippling 1+ Anisocytosis 1+ Microcytosis 1+ Macrocytosis 0 Spherocytes 1+ Ovalocytes 1+ Stomatocytes 1+ Sodium 140 Potassium 3.9 Chloride 102 Carbon Dioxide 33 H Anion Gap 5 L BUN 17.2 Creatinine 0.5 L Est GFR (CKD-EPI)AfAm 127.25 Est GFR (CKD-EPI)NonAf 109.79 Random Glucose 80 Calcium 8.8 Total Bilirubin 0.3 AST 20 ALT 34 Alkaline Phosphatase 41 L Troponin I 0.03 Total Protein 6.0 L Albumin 2.4 L Current Medications Generic Name Dose Route Start Last Admin Trade Name Freq PRN Reason Stop Dose Admin Acetaminophen 650 mg 04/18/20 11:27 04/18/20 11:37 Tylenol - PO 650 mg Q6H PRN Administration Fever Albuterol/Ipratropium 1 amp 04/15/20 20:00 04/18/20 08:36 Duoneb - NEB Not Given RTID JACQUELIN Albuterol/Ipratropium 1 amp 04/15/20 14:25 Duoneb - NEB Q4H PRN SHORTNESS OF BREATH Enoxaparin Sodium 40 mg 04/12/20 10:00 04/18/20 09:39 Lovenox - SQ 40 mg DAILY JACQUELIN Administration Ceftriaxone Sodium 1 gm/ 50 mls @ 200 mls/hr 04/13/20 10:00 04/18/20 09:39 Dextrose IVPB 200 mls/hr DAILY JACQUELIN Administration Protocol Metoprolol Tartrate 5 mg 04/18/20 12:24 Lopressor Injection - IVPUSH Q4H PRN TACHYCARDIA Naproxen 220 mg 04/18/20 11:34 Naprosyn - PO Q6H PRN PAIN LEVEL 6-10 Prednisone 40 mg 04/18/20 10:00 04/18/20 09:39 Deltasone - PO 40 mg DAILY JACQUELIN Administration ASSESSMENT AND PLAN: This is a 70 year old man with a history of chronic hypoxic respiratory failure, COPD, lung mass who presented to the ED with SOB. 1. Sepsis secondary to pneumonia - Continue ceftriaxone (day 6) 2. Acute on chronic hypoxic respiratory failure secondary to pneumonia/acute exacerbation of COPD - Continue prednisone, DuoNeb 3. Left lung nodules structures - Prior work-up at [facility] in 2018 negative for malignancy - AFB smear negative x1 - Outpatient follow-up
--- NOTE | 2020-04-18 14:50 | EKG ---
Test Reason : Blood Pressure : / mmHG Vent. Rate : 118 BPM Atrial Rate : 118 BPM P-R Int : 156 ms QRS Dur : 082 ms QT Int : 306 ms P-R-T Axes : 081 025 065 degrees QTc Int : 428 ms POOR DATA QUALITY, INTERPRETATION MAY BE ADVERSELY AFFECTED SINUS TACHYCARDIA WITH PREMATURE ATRIAL COMPLEXES WITH ABERRANT CONDUCTION RIGHT ATRIAL ENLARGEMENT NONSPECIFIC ST ABNORMALITY WHEN COMPARED WITH ECG OF 11-APR-2020 19:42, T WAVE INVERSION NOW EVIDENT IN INFERIOR LEADS Confirmed by BRENDEN CARMEN MD ([id number]) on 04/18/2020 2:49:52 PM Referred By: Confirmed By:BRENDEN CARMEN MD
[2020-04-19 07:05] LABS: BASO % 0.4 % (0-2.0); EOS % 3.8 % (0-4.5); HEMATOCRIT 32.3 % (35.4-49); HEMOGLOBIN 10.5 GM/dL (11.7-16.9); LYMPH % 7.5 % (8-40); MCH 30.6 pg (25.7-33.7); MCHC 32.6 g/dl (32.0-35.9); MEAN CELL VOLUME 93.7 fl (80-96); MEAN PLT VOLUME 8.7 fl (7.5-11.1); MONO % 3.9 % (3.8-10.2); NEUT % 84.4 % (42.8-82.8); PLATELET COUNT 232 K/MM3 (134-434); RBC 3.45 M/mm3 (4.00-5.60); RDW 13.7 % (11.9-15.9); WHITE BLOOD COUNT 19.1 K/mm3 (4.0-10.0)
[2020-04-19 07:21] LABS: ALBUMIN 2.3 g/dl (3.4-5.0); BILIRUBIN,TOTAL 0.7 mg/dL (0.2-1); BLOOD UREA NITROGEN 19.2 mg/dL (7-18); CALCIUM 8.4 mg/dL (8.5-10.1); CREATININE 0.5 mg/dL (0.55-1.3); POTASSIUM 4.1 mmol/L (3.5-5.1); TOT PROT 5.9 g/dl (6.4-8.2)
[2020-04-19] MEDS ORDERED: cefTRIAXone SODIUM 1 GM VIAL ONE (07:33)
[2020-04-19] MEDS ORDERED: DEXTROSE 5%-WATER - 50 ML IVPB ONE (07:33)
[2020-04-19] MEDS: CEFTRIAXONE 1 GM in DEXTROSE 5%-WATER - 50 ML IVPB SCH (09:25)
[2020-04-19] MEDS: predniSONE 20 MG TABLET (UD) PO SCH (09:25)
[2020-04-19] MEDS: ENOXAPARIN NA (PORCINE) 40 MG/0.4 ML DISP.SYRIN SQ SCH (09:26)
[2020-04-19] MEDS: ACETAMINOPHEN 325 MG TABLET (FP) PO PRN (09:26)
[2020-04-19] MEDS: ALBUTEROL SO4 2.5/IPRATROPIUM 0.5 INH SOL 3 ML VIAL.NEB. NEB SCH ×3 (09:42→20:08)
--- NOTE | 2020-04-19 11:22 | PN ---
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 NASAL O2/V/M ON VSS/AFEBRILE PALE DIMINISHED S1S2 BS+ NO EDEMA LABS/MEDS/NOTES/IMAGES REVIEWED - Problems (1) COPD (chronic obstructive pulmonary disease) Code(s): J44.9 - CHRONIC OBSTRUCTIVE PULMONARY DISEASE, UNSPECIFIED (2) Acute exacerbation of chronic obstructive pulmonary disease (COPD) Code(s): J44.1 - CHRONIC OBSTRUCTIVE PULMONARY DISEASE W (ACUTE) EXACERBATION (3) Emphysema lung Code(s): J43.9 - EMPHYSEMA, UNSPECIFIED (4) SOB (shortness of breath) Code(s): R06.02 - SHORTNESS OF BREATH (5) Lung mass Code(s): R91.8 - OTHER NONSPECIFIC ABNORMAL FINDING OF LUNG FIELD (6) Mediastinal adenopathy Code(s): R59.0 - LOCALIZED ENLARGED LYMPH NODES O2 to keep sat 90% or above ABX per ID BD TX Steroid taper prn VTE prophylaxis Would continue treatment in hospital Needs chest PT R ROMARIO SHIRLEY
[2020-04-19 12:16] LABS: ANISOCYTOSIS 0; MACROCYTOSIS 0; PLATELET ESTIMATE NORMAL
--- NOTE | 2020-04-19 16:34 | PN ---
<Rosalind Bradford - Last Filed: 04/19/20 17:03> Physical Exam: SUBJECTIVE: Patient seen and examined. Continues to have copious green sputum production. OBJECTIVE: Vital Signs Period Temp Pulse Resp BP Sys/Martinez Pulse Ox Last 24 Hr 97.8 F-98.7 F 90-110 20-20 99-109/52-59 100-100 GENERAL: AAOx3. In NAD. HEENT: NCAT. MMM. LUNGS: Decreased breath sounds at b/l bases, most prominent in RUL HEART: Regular rate and rhythm, S1, S2 without murmur, rub or gallop. ABDOMEN: Soft, ntnd, normoactive bowel sounds, no guarding EXTREMITIES: 2+ pulses, warm, well-perfused, no edema. NEUROLOGICAL: Cranial nerves II through XII grossly intact. SKIN: b/l LE dry skin Laboratory Results - last 24 hr 04/19/20 04/19/20 05:15 05:15 WBC 19.1 H RBC 3.45 L Hgb 10.5 L Hct 32.3 L MCV 93.7 MCH 30.6 MCHC 32.6 RDW 13.7 Plt Count 232 MPV 8.7 Absolute Neuts (auto) 16.1 H Neutrophils % 84.4 H Neutrophils % (Manual) 81.0 Band Neutrophils % 0.0 Lymphocytes % 7.5 L D Lymphocytes % (Manual) 12.0 D Monocytes % 3.9 Monocytes % (Manual) 4 Eosinophils % 3.8 Eosinophils % (Manual) 3.0 Basophils % 0.4 Basophils % (Manual) 0.0 Myelocytes % (Man) 0 Promyelocytes % (Man) 0 Blast Cells % (Manual) 0 Nucleated RBC % 0 Metamyelocytes 0 Hypochromia 0 Platelet Estimate Normal Polychromasia 0 Poikilocytosis 0 Anisocytosis 0 Microcytosis 0 Macrocytosis 0 Sodium 140 Potassium 4.1 Chloride 100 Carbon Dioxide 37 H Anion Gap 4 L BUN 19.2 H Creatinine 0.5 L Est GFR (CKD-EPI)AfAm 127.25 Est GFR (CKD-EPI)NonAf 109.79 Random Glucose 77 Calcium 8.4 L Total Bilirubin 0.7 AST 19 ALT 30 Alkaline Phosphatase 39 L Total Protein 5.9 L Albumin 2.3 L Active Medications Generic Name Dose Route Start Last Admin Trade Name Freq PRN Reason Stop Dose Admin Acetaminophen 650 mg 04/18/20 11:27 04/19/20 09:26 Tylenol - PO 650 mg Q6H PRN Administration Fever Albuterol/Ipratropium 1 amp 04/15/20 20:00 04/19/20 14:28 Duoneb - NEB 1 amp RTID JACQUELIN Administration Albuterol/Ipratropium 1 amp 04/15/20 14:25 Duoneb - NEB Q4H PRN SHORTNESS OF BREATH Enoxaparin Sodium 40 mg 04/12/20 10:00 04/19/20 09:26 Lovenox - SQ 40 mg DAILY JACQUELIN Administration Ceftriaxone Sodium 1 gm/ 50 mls @ 200 mls/hr 04/13/20 10:00 04/19/20 09:25 Dextrose IVPB 200 mls/hr DAILY JACQUELIN Administration Protocol Metoprolol Tartrate 5 mg 04/18/20 12:24 Lopressor Injection - IVPUSH Q4H PRN TACHYCARDIA Naproxen 220 mg 04/18/20 11:34 Naprosyn - PO Q6H PRN PAIN LEVEL 6-10 Prednisone 40 mg 04/18/20 10:00 04/19/20 09:25 Deltasone - PO 40 mg DAILY JACQUELIN Administration IMAGING: * CXR 04/11: Moderately severe COPD and right upper lobe infiltrate. * CTA chest: Severe centrilobular emphysema is noted. Marked right upper lobe and moderate left upper lobe parenchymal scarring is seen. There is mildly diminished volume of the right upper lobe. A superimposed right upper lobe acute infiltrate would be difficult to exclude on the basis of a single CT exam. Correlate clinically and with follow-up CT. 3.3 cm and 2 cm irregular left upper lobe opacities are noted which may represent primary neoplastic disease versus focal parenchymal scarring. PET/CT evaluation may be considered. Small amount of mucus secretions are seen within the thoracic trachea suggestive of chronic bronchitis. Focal nonspecific pleural thickening is seen within the right lower lobe posteriorly measuring 3.3 x 0.5 cm. Nonspecific mildly enlarged mediastinal and right hilar lymph nodes are noted. Extensive atherosclerotic coronary calcifications are noted. Chronic moderate to marked T7 and mild to moderate T12 vertebral body compression fractures are seen. Cholelithiasis. ASSESSMENT/PLAN: 70 y.o. M PMH emphysema, COPD (on 5L home O2), chronic right upper lung mass (uncertain etiology) presenting with sepsis possibly 2/2 to COPD exacerbation vs flare up of chronic infection. #Sepsis 2/2 RUL PNA -ID following; currently on Ceftriaxone 1gm QD, day 6 -Pulm following: would ontinue inpatient management -continue steroid taper -Per Dr. Cal Boyce at [facility], pt has not followed up in a year. Biopsy done in 2018 showed no malignant cells, only chronic inflammatory changes. Has known cavitary RUL lesion for over a year as well as MONA opacity seen on CT scan in 2019. Pt never returned after biopsy for follow up visit. -continue O2; 5L NC (home o2) -BCx neg, Sp Cx neg, Urine Ag for leg S. pneumo negative -quant gold negative -AFB sputum smear x 2 (1st negative) (r/o TB) -aspergillus serology 0.09; [id number] 31 wnl -Ferritin, CRP elevated -COVID-19 PCR negative -BiPAP as needed #COPD, Emphysema -at baseline 5L NC O2 at home -PRN NIPPV -Titrate O2 requirements to maintain SpO2> 88% -continue duonebs standing & prn -PO Prednisone 40 QD- taper -Pulmonology following -Pre and post #Anemia -Stable. -Hgb 10.5 today -Iron studies: likely chronic disease (low iron, high ferritin, low tibc) #DVT PPX: -Lovenox 40mg SQ daily #FEN -no standing fluids -trend & replete lytes prn -Regular diet Dispo: cont to monitor on telemetry Visit type - Emergency Visit Emergency Visit: No - New Patient This patient is new to me today: No - Critical Care Critical Care patient: No ATTENDING PHYSICIAN STATEMENT I saw and evaluated the patient. I reviewed the resident's note and discussed the case with the resident. I agree with the resident's findings and plan as documented. SUBJECTIVE: OBJECTIVE: ASSESSMENT AND PLAN: <Collin Parnell - Last Filed: 04/19/20 17:52> Physical Exam: SUBJECTIVE: Patient seen and examined OBJECTIVE: Vital Signs Period Temp Pulse Resp BP Sys/Martinez Pulse Ox Last 24 Hr 97.8 F-98.7 F 90-110 20-20 99-109/52-59 100-100 GENERAL: The patient is awake, alert, and fully oriented, in no acute distress. HEAD: Normal with no signs of trauma. EYES: PERRL, extraocular movements intact, sclera anicteric, conjunctiva clear. No ptosis. ENT: Ears normal, nares patent, oropharynx clear without exudates, moist mucous membranes. NECK: Trachea midline, full range of motion, supple. LUNGS: Breath sounds equal, clear to auscultation bilaterally, no wheezes, no crackles, no accessory muscle use. HEART: Regular rate and rhythm, S1, S2 without murmur, rub or gallop. ABDOMEN: Soft, nontender, nondistended, normoactive bowel sounds, no guarding, no rebound, no hepatosplenomegaly, no masses. EXTREMITIES: 2+ pulses, warm, well-perfused, no edema. NEUROLOGICAL: Cranial nerves II through XII grossly intact. Normal speech, gait not observed. PSYCH: Normal mood, normal affect. SKIN: Warm, dry, normal turgor, no rashes or lesions noted Laboratory Results - last 24 hr 04/19/20 04/19/20 05:15 05:15 WBC 19.1 H RBC 3.45 L Hgb 10.5 L Hct 32.3 L MCV 93.7 MCH 30.6 MCHC 32.6 RDW 13.7 Plt Count 232 MPV 8.7 Absolute Neuts (auto) 16.1 H Neutrophils % 84.4 H Neutrophils % (Manual) 81.0 Band Neutrophils % 0.0 Lymphocytes % 7.5 L D Lymphocytes % (Manual) 12.0 D Monocytes % 3.9 Monocytes % (Manual) 4 Eosinophils % 3.8 Eosinophils % (Manual) 3.0 Basophils % 0.4 Basophils % (Manual) 0.0 Myelocytes % (Man) 0 Promyelocytes % (Man) 0 Blast Cells % (Manual) 0 Nucleated RBC % 0 Metamyelocytes 0 Hypochromia 0 Platelet Estimate Normal Polychromasia 0 Poikilocytosis 0 Anisocytosis 0 Microcytosis 0 Macrocytosis 0 Sodium 140 Potassium 4.1 Chloride 100 Carbon Dioxide 37 H Anion Gap 4 L BUN 19.2 H Creatinine 0.5 L Est GFR (CKD-EPI)AfAm 127.25 Est GFR (CKD-EPI)NonAf 109.79 Random Glucose 77 Calcium 8.4 L Total Bilirubin 0.7 AST 19 ALT 30 Alkaline Phosphatase 39 L Total Protein 5.9 L Albumin 2.3 L Active Medications Generic Name Dose Route Start Last Admin Trade Name Freq PRN Reason Stop Dose Admin Acetaminophen 650 mg 06/26/20 11:27 04/19/20 09:26 Tylenol - PO 650 mg Q6H PRN Administration Fever Albuterol/Ipratropium 1 amp 04/15/20 20:00 04/19/20 14:28 Duoneb - NEB 1 amp RTID JACQUELIN Administration Albuterol/Ipratropium 1 amp 04/15/20 14:25 Duoneb - NEB Q4H PRN SHORTNESS OF BREATH Enoxaparin Sodium 40 mg 04/12/20 10:00 04/19/20 09:26 Lovenox - SQ 40 mg DAILY JACQUELIN Administration Ceftriaxone Sodium 1 gm/ 50 mls @ 200 mls/hr 04/13/20 10:00 04/19/20 09:25 Dextrose IVPB 200 mls/hr DAILY JACQUELIN Administration Protocol Metoprolol Tartrate 5 mg 04/18/20 12:24 Lopressor Injection - IVPUSH Q4H PRN TACHYCARDIA Naproxen 220 mg 04/18/20 11:34 Naprosyn - PO Q6H PRN PAIN LEVEL 6-10 Prednisone 40 mg 04/18/20 10:00 04/19/20 09:25 Deltasone - PO 40 mg DAILY JACQUELIN Administration ASSESSMENT/PLAN: ATTENDING PHYSICIAN STATEMENT Attending attestation: Patient seen and examined at bedside during my rounds. Patient endorses he continues to have green phlegm production.He states overall he is feeling better. His sputum is starting to mobilize and he is having more more production now. On exam he is alert and awake. He has a regular rate and rhythm on cardiac exam. Lung Exam demonstrates bilateral crackles at the bases. The patient is thin. He has trace bilateral lower extremity pitting edema of bilateral lower extremities. For the patient sepsis secondary to pneumonia of the right upper lobe continue ceftriaxone. Pulmonology consult noted and appreciated. Continue Precautions for TB.Follow-up AFBs.Blood cultures negative so far. Rest as per above.
[2020-04-20 07:01] LABS: HEMATOCRIT 30.4 % (35.4-49); HEMOGLOBIN 9.9 GM/dL (11.7-16.9); MCH 30.4 pg (25.7-33.7); MCHC 32.6 g/dl (32.0-35.9); MEAN CELL VOLUME 93.2 fl (80-96); MEAN PLT VOLUME 8.4 fl (7.5-11.1); PLATELET COUNT 230 K/MM3 (134-434); RBC 3.26 M/mm3 (4.00-5.60); WHITE BLOOD COUNT 18.2 K/mm3 (4.0-10.0)
[2020-04-20 07:07] LABS: POTASSIUM 3.9 mmol/L (3.5-5.1)
[2020-04-20 07:14] LABS: ALBUMIN 2.2 g/dl (3.4-5.0); BILIRUBIN,TOTAL 0.7 mg/dL (0.2-1); BLOOD UREA NITROGEN 18.5 mg/dL (7-18); CALCIUM 8.8 mg/dL (8.5-10.1); CREATININE 0.5 mg/dL (0.55-1.3); TOT PROT 5.8 g/dl (6.4-8.2)
[2020-04-20] MEDS: ALBUTEROL SO4 2.5/IPRATROPIUM 0.5 INH SOL 3 ML VIAL.NEB. NEB SCH ×2 (08:09→14:09)
[2020-04-20] MEDS ORDERED: PT OWN MED DRAWER 7, Y5N ONE (08:24)
[2020-04-20] MEDS ORDERED: DEXTROSE 5%-WATER - 50 ML IVPB ONE (08:25)
[2020-04-20] MEDS ORDERED: cefTRIAXone SODIUM 1 GM VIAL ONE (08:25)
[2020-04-20] MEDS: ENOXAPARIN NA (PORCINE) 40 MG/0.4 ML DISP.SYRIN SQ SCH (09:11)
[2020-04-20] MEDS: predniSONE 20 MG TABLET (UD) PO SCH (09:12)
--- NOTE | 2020-04-20 11:43 | PN ---
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 NASAL O2/V/M ON VSS/AFEBRILE PALE DIMINISHED S1S2 BS+ NO EDEMA LABS/MEDS/NOTES/IMAGES REVIEWED - Problems (1) COPD (chronic obstructive pulmonary disease) Code(s): J44.9 - CHRONIC OBSTRUCTIVE PULMONARY DISEASE, UNSPECIFIED (2) Acute exacerbation of chronic obstructive pulmonary disease (COPD) Code(s): J44.1 - CHRONIC OBSTRUCTIVE PULMONARY DISEASE W (ACUTE) EXACERBATION (3) Emphysema lung Code(s): J43.9 - EMPHYSEMA, UNSPECIFIED (4) SOB (shortness of breath) Code(s): R06.02 - SHORTNESS OF BREATH (5) Lung mass Code(s): R91.8 - OTHER NONSPECIFIC ABNORMAL FINDING OF LUNG FIELD (6) Mediastinal adenopathy Code(s): R59.0 - LOCALIZED ENLARGED LYMPH NODES O2 to keep sat 90% or above ABX per ID BD TX Steroid taper prn VTE prophylaxis Would continue treatment in hospital Needs chest PT Estee DOSS MD
[2020-04-20] MEDS: CEFTRIAXONE 1 GM in DEXTROSE 5%-WATER - 50 ML IVPB SCH (15:33)
--- NOTE | 2020-04-20 15:42 | PN ---
<Rosalind Bradford - Last Filed: 04/20/20 15:43> Physical Exam: SUBJECTIVE: Patient seen and examined. No acute overnight events. Patient feeling well. OBJECTIVE: Vital Signs Period Temp Pulse Resp BP Sys/Martinez Pulse Ox Last 24 Hr 98.0 F-99.0 F 93-113 20-20 102-136/54-71 96-98 GENERAL: AAOx3. In NAD. HEENT: NCAT. MMM. LUNGS: Decreased breath sounds at b/l bases, most prominent in RUL HEART: Regular rate and rhythm, S1, S2 without murmur, rub or gallop. ABDOMEN: Soft, ntnd, + bowel sounds, no guarding EXTREMITIES: 2+ pulses, warm, well-perfused, no edema. NEUROLOGICAL: Cranial nerves II through XII grossly intact. SKIN: b/l LE dry skin Laboratory Results - last 24 hr 04/20/20 04/20/20 05:15 05:15 WBC 18.2 H RBC 3.26 L Hgb 9.9 L Hct 30.4 L MCV 93.2 MCH 30.4 MCHC 32.6 RDW 14.0 Plt Count 230 MPV 8.4 Sodium 141 Potassium 3.9 Chloride 102 Carbon Dioxide 32 Anion Gap 7 L BUN 18.5 H Creatinine 0.5 L Est GFR (CKD-EPI)AfAm 127.25 Est GFR (CKD-EPI)NonAf 109.79 Random Glucose 87 Calcium 8.8 Total Bilirubin 0.7 AST 15 ALT 28 Alkaline Phosphatase 38 L Total Protein 5.8 L Albumin 2.2 L Active Medications Generic Name Dose Route Start Last Admin Trade Name Freq PRN Reason Stop Dose Admin Acetaminophen 650 mg 04/18/20 11:27 04/19/20 09:26 Tylenol - PO 650 mg Q6H PRN Administration Fever Albuterol/Ipratropium 1 amp 04/15/20 20:00 04/20/20 14:09 Duoneb - NEB 1 amp RTID JACQUELIN Administration Enoxaparin Sodium 40 mg 04/12/20 10:00 04/20/20 09:11 Lovenox - SQ 40 mg DAILY JACQUELIN Administration Ceftriaxone Sodium 1 gm/ 50 mls @ 100 mls/hr 04/20/20 15:30 Dextrose IVPB DAILY JACQUELIN Metoprolol Tartrate 5 mg 04/18/20 12:24 Lopressor Injection - IVPUSH Q4H PRN TACHYCARDIA Naproxen 220 mg 04/18/20 11:34 04/20/20 09:12 Naprosyn - PO 220 mg Q6H PRN Administration PAIN LEVEL 6-10 Prednisone 40 mg 04/18/20 10:00 04/20/20 09:12 Deltasone - PO 40 mg DAILY JACQUELIN Administration ASSESSMENT/PLAN: IMAGING: * CXR 04/11: Moderately severe COPD and right upper lobe infiltrate. * CTA chest: Severe centrilobular emphysema is noted. Marked right upper lobe and moderate left upper lobe parenchymal scarring is seen. There is mildly diminished volume of the right upper lobe. A superimposed right upper lobe acute infiltrate would be difficult to exclude on the basis of a single CT exam. Correlate clinically and with follow-up CT. 3.3 cm and 2 cm irregular left upper lobe opacities are noted which may represent primary neoplastic disease versus focal parenchymal scarring. PET/CT evaluation may be considered. Small amount of mucus secretions are seen within the thoracic trachea suggestive of chronic bronchitis. Focal nonspecific pleural thickening is seen within the right lower lobe posteriorly measuring 3.3 x 0.5 cm. Nonspecific mildly enlarged mediastinal and right hilar lymph nodes are noted. Extensive atherosclerotic coronary calcifications are noted. Chronic moderate to marked T7 and mild to moderate T12 vertebral body compression fractures are seen. Cholelithiasis. ASSESSMENT/PLAN: 70 y.o. M PMH emphysema, COPD (on 5L home O2), chronic right upper lung mass (uncertain etiology) presenting with sepsis possibly 2/2 to COPD exacerbation vs flare up of chronic infection. #Sepsis 2/2 RUL PNA -ID following; currently on Ceftriaxone 1gm QD, day 7 -Pulm following: would continue inpatient management -continue PO prednisone steroid taper: as per pulm, continue 40mg x 3-4 days, taper by 5mg q3-4 days; once patient is at 20mg, continue to taper down by 5mg Qweekly. -Per Dr. Cal Boyce at [facility], pt has not followed up in a year. Biopsy done in 2018 showed no malignant cells, only chronic inflammatory changes. Has known cavitary RUL lesion for over a year as well as MONA opacity seen on CT scan in 2019. Pt never returned after biopsy for follow up visit. -continue O2; 5L NC (home o2) -BCx neg, Sp Cx neg, Urine Ag for leg S. 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 Boyce @ [facility] however patient has requested he would like to continue care with Dr. Richmond once discharged. #COPD, Emphysema -at baseline 5L NC O2 at home -PRN NIPPV -Titrate O2 requirements to maintain SpO2> 88% -continue duonebs standing & prn -PO Prednisone 40 QD- taper -Pulmonology following #Anemia -Stable. -Hgb 9.9 today -Iron studies: likely chronic disease (low iron, high ferritin, low tibc) #DVT PPX: -Lovenox 40mg SQ daily #FEN -no standing fluids -trend & replete lytes prn -Regular diet Dispo: cont to monitor on telemetry -pending 2nd AFB Visit type - Emergency Visit Emergency Visit: No - New Patient This patient is new to me today: No - Critical Care Critical Care patient: No ATTENDING PHYSICIAN STATEMENT I saw and evaluated the patient. I reviewed the resident's note and discussed the case with the resident. I agree with the resident's findings and plan as documented. SUBJECTIVE: OBJECTIVE: ASSESSMENT AND PLAN: <Collin Parnell - Last Filed: 04/20/20 19:34> Physical Exam: SUBJECTIVE: Patient seen and examined OBJECTIVE: Vital Signs Period Temp Pulse Resp BP Sys/Martinez Pulse Ox Last 24 Hr 98.0 F-99.0 F 95-113 20-20 100-136/54-71 96-98 GENERAL: The patient is awake, alert, and fully oriented, in no acute distress. HEAD: Normal with no signs of trauma. EYES: PERRL, extraocular movements intact, sclera anicteric, conjunctiva clear. No ptosis. ENT: Ears normal, nares patent, oropharynx clear without exudates, moist mucous membranes. NECK: Trachea midline, full range of motion, supple. LUNGS: Breath sounds equal, clear to auscultation bilaterally, no wheezes, no crackles, no accessory muscle use. HEART: Regular rate and rhythm, S1, S2 without murmur, rub or gallop. ABDOMEN: Soft, nontender, nondistended, normoactive bowel sounds, no guarding, no rebound, no hepatosplenomegaly, no masses. EXTREMITIES: 2+ pulses, warm, well-perfused, no edema. NEUROLOGICAL: Cranial nerves II through XII grossly intact. Normal speech, gait not observed. PSYCH: Normal mood, normal affect. SKIN: Warm, dry, normal turgor, no rashes or lesions noted Laboratory Results - last 24 hr 04/20/20 04/20/20 05:15 05:15 WBC 18.2 H RBC 3.26 L Hgb 9.9 L Hct 30.4 L MCV 93.2 MCH 30.4 MCHC 32.6 RDW 14.0 Plt Count 230 MPV 8.4 Sodium 141 Potassium 3.9 Chloride 102 Carbon Dioxide 32 Anion Gap 7 L BUN 18.5 H Creatinine 0.5 L Est GFR (CKD-EPI)AfAm 127.25 Est GFR (CKD-EPI)NonAf 109.79 Random Glucose 87 Calcium 8.8 Total Bilirubin 0.7 AST 15 ALT 28 Alkaline Phosphatase 38 L Total Protein 5.8 L Albumin 2.2 L Active Medications Generic Name Dose Route Start Last Admin Trade Name Freq PRN Reason Stop Dose Admin Acetaminophen 650 mg 04/18/20 11:27 04/19/20 09:26 Tylenol - PO 650 mg Q6H PRN Administration Fever Albuterol/Ipratropium 1 amp 04/15/20 20:00 04/20/20 14:09 Duoneb - NEB 1 amp RTID JACQUELIN Administration Enoxaparin Sodium 40 mg 04/12/20 10:00 04/20/20 09:11 Lovenox - SQ 40 mg DAILY JACQUELIN Administration Ceftriaxone Sodium 1 gm/ 50 mls @ 100 mls/hr 04/20/20 15:30 04/20/20 15:33 Dextrose IVPB 100 mls/hr DAILY JACQUELIN Administration Metoprolol Tartrate 5 mg 04/18/20 12:24 Lopressor Injection - IVPUSH Q4H PRN TACHYCARDIA Naproxen 220 mg 04/18/20 11:34 04/20/20 09:12 Naprosyn - PO 220 mg Q6H PRN Administration PAIN LEVEL 6-10 Prednisone 40 mg 04/18/20 10:00 04/20/20 09:12 Deltasone - PO 40 mg DAILY JACQUELIN Administration ASSESSMENT/PLAN: ATTENDING PHYSICIAN STATEMENT I saw and evaluated the patient. I reviewed the resident's note and discussed the case with the resident. I agree with the resident's findings and plan as documented. Attending attestation: Patient seen and examined at bedside during my rounds. Patient endorses he continues to have green phlegm production but much less than yesterday. He states overall he is feeling better. His sputum is clearing up but was still green this AM. On exam he is alert and awake. He has a regular rate and rhythm on cardiac exam. Lung Exam demonstrates bilateral crackles at the bases. The patient is thin. He has trace bilateral lower extremity pitting edema of bilateral lower extremities. For the patient sepsis secondary to pneumonia of the right upper lobe continue ceftriaxone. Pulmonology consult noted and appreciated. Continue Precautions for TB. Follow-up AFBs. Blood cultures negative so far. AFB negative x2 so far. 1 AFB culture pending. patient will need to be discharged with outpatient follow up with his [facility] glass cleaning machine tender. He will need repeat CT scan of the chest and possible repeat biopsy of the lung. Slow prednisone taper. Discussed with Dr. Acosta from ID. Keep patient in hospital and continue ceftriaxone. Rest as per above.
[2020-04-20] MEDS ORDERED: CEFTRIAXONE 1 GM in DEXTROSE 5%-WATER - 50 ML IVPB SCH (15:45)
[2020-04-21] MEDS ORDERED: DEXTROSE 5%-WATER - 50 ML IVPB ONE (09:36)
[2020-04-21] MEDS ORDERED: cefTRIAXone SODIUM 1 GM VIAL ONE (09:36)
[2020-04-21] MEDS: predniSONE 20 MG TABLET (UD) PO SCH (10:11)
[2020-04-21] MEDS: ENOXAPARIN NA (PORCINE) 40 MG/0.4 ML DISP.SYRIN SQ SCH (10:11)
[2020-04-21] MEDS: CEFTRIAXONE 1 GM in DEXTROSE 5%-WATER - 50 ML IVPB SCH (10:12)
--- NOTE | 2020-04-21 10:26 | PN ---
Progress Note, Physician History of Present Illness: PULMONARY ALERT,C/O SOB AT REST ,+ DRY COUGH - Current Medication List Current Medications: Active Medications Acetaminophen (Tylenol -) 650 mg PO Q6H PRN PRN Reason: Fever Last Admin: 04/19/20 09:26 Dose: 650 mg Documented by: Enoxaparin Sodium (Lovenox -) 40 mg SQ DAILY [facility] Last Admin: 04/21/20 10:11 Dose: 40 mg Documented by: Ceftriaxone Sodium 1 gm/ (Dextrose) 50 mls @ 100 mls/hr IVPB DAILY [facility] Last Admin: 04/21/20 10:12 Dose: 100 mls/hr Documented by: Metoprolol Tartrate (Lopressor Injection -) 5 mg IVPUSH Q4H PRN PRN Reason: TACHYCARDIA Naproxen (Naprosyn -) 220 mg PO Q6H PRN PRN Reason: PAIN LEVEL 6-10 Last Admin: 04/20/20 09:12 Dose: 220 mg Documented by: Prednisone (Deltasone -) 40 mg PO DAILY [facility] Last Admin: 04/21/20 10:11 Dose: 40 mg Documented by: - Objective Vital Signs: Vital Signs Temperature 97.8 F 04/21/20 06:00 Pulse Rate 88 04/21/20 06:00 Respiratory Rate 20 04/21/20 06:00 Blood Pressure 117/58 L 04/21/20 06:00 O2 Sat by Pulse Oximetry (%) 98 04/20/20 22:00 Constitutional: Yes: Calm, Thin, Other (DYSPNEIC) Eyes: Yes: WNL HENT: Yes: WNL Neck: Yes: WNL Cardiovascular: Yes: Regular Rate and Rhythm, S1, S2 Respiratory: Yes: Diminished Gastrointestinal: Yes: Normal Bowel Sounds, Soft Extremities: Yes: WNL Edema: No Labs: CBC, BMP 04/20/20 05:15 04/20/20 05:15 INR, PTT INR 1.17 (0.83-1.09) H 04/11/20 17:50 Assessment/Plan Problem List - Problems (1) COPD (chronic obstructive pulmonary disease) Code(s): J44.9 - CHRONIC OBSTRUCTIVE PULMONARY DISEASE, UNSPECIFIED (2) Acute exacerbation of chronic obstructive pulmonary disease (COPD) Code(s): J44.1 - CHRONIC OBSTRUCTIVE PULMONARY DISEASE W (ACUTE) EXACERBATION (3) Emphysema lung Code(s): J43.9 - EMPHYSEMA, UNSPECIFIED (4) SOB (shortness of breath) Code(s): R06.02 - SHORTNESS OF BREATH (5) Lung mass Code(s): R91.8 - OTHER NONSPECIFIC ABNORMAL FINDING OF LUNG FIELD (6) Mediastinal adenopathy Code(s): R59.0 - LOCALIZED ENLARGED LYMPH NODES Assessment/Plan VM O2 as tolerated NIPPV support as needed BD TX Medrol symbicort VTE prophylaxis No smoking Chest pt DR KILGORE Problem List - Problems (1) COPD (chronic obstructive pulmonary disease) Code(s): J44.9 - CHRONIC OBSTRUCTIVE PULMONARY DISEASE, UNSPECIFIED (2) Acute exacerbation of chronic obstructive pulmonary disease (COPD) Code(s): J44.1 - CHRONIC OBSTRUCTIVE PULMONARY DISEASE W (ACUTE) EXACERBATION (3) Emphysema lung Code(s): J43.9 - EMPHYSEMA, UNSPECIFIED (4) SOB (shortness of breath) Code(s): R06.02 - SHORTNESS OF BREATH (5) Lung mass Code(s): R91.8 - OTHER NONSPECIFIC ABNORMAL FINDING OF LUNG FIELD (6) Mediastinal adenopathy Code(s): R59.0 - LOCALIZED ENLARGED LYMPH NODES
[2020-04-21] MEDS: ALBUTEROL SO4 0.083% IH SOL 2.5 MG/3 ML VIAL.NEB. NEB PRN ×2 (11:16→20:22)
[2020-04-21] MEDS: BUDESONIDE/FORMETEROL FUMARATE 80/4.5 mcg INHALER IH SCH ×2 (11:37→21:37)
[2020-04-21] MEDS: TIOTROPIUM BROMIDE 2.5 MCG (SPIRIVA) RESPIMAT INHALER IH SCH (11:37)
[2020-04-21 11:53] LABS: HEMATOCRIT 30.8 % (35.4-49); HEMOGLOBIN 9.9 GM/dL (11.7-16.9); MCH 30.2 pg (25.7-33.7); MCHC 32.1 g/dl (32.0-35.9); MEAN CELL VOLUME 93.9 fl (80-96); MEAN PLT VOLUME 8.6 fl (7.5-11.1); PLATELET COUNT 232 K/MM3 (134-434); RBC 3.28 M/mm3 (4.00-5.60); WHITE BLOOD COUNT 16.9 K/mm3 (4.0-10.0)
[2020-04-21 12:28] LABS: ALBUMIN 2.2 g/dl (3.4-5.0); BILIRUBIN,TOTAL 0.3 mg/dL (0.2-1); BLOOD UREA NITROGEN 23.8 mg/dL (7-18); CALCIUM 8.7 mg/dL (8.5-10.1); CREATININE 0.5 mg/dL (0.55-1.3); POTASSIUM 4.1 mmol/L (3.5-5.1); TOT PROT 5.8 g/dl (6.4-8.2)
--- NOTE | 2020-04-21 17:27 | PN ---
Physical Exam: SUBJECTIVE: Patient seen and examined at bedside. No acute events overnight. Endorses shortness of breath when ambulating. OBJECTIVE: Vital Signs Period Temp Pulse Resp BP Sys/Martinez Pulse Ox Last 24 Hr 97.8 F-98.4 F 84-102 20-20 102-117/49-70 98-98 GENERAL: NAD HEAD: Normal with no signs of trauma. EYES: EOMI Sclera Clear ENT: MMMs. NECK: No accessory muscle use LUNGS: CTAB HEART: RR S1S2 ABDOMEN: Soft, nontender, nondistended EXTREMITIES: No significant edema bilaterally Laboratory Results - last 24 hr 04/21/20 04/21/20 10:10 10:10 WBC 16.9 H RBC 3.28 L Hgb 9.9 L Hct 30.8 L MCV 93.9 MCH 30.2 MCHC 32.1 RDW 14.0 Plt Count 232 MPV 8.6 Sodium 140 Potassium 4.1 Chloride 102 Carbon Dioxide 35 H Anion Gap 4 L BUN 23.8 H Creatinine 0.5 L Est GFR (CKD-EPI)AfAm 127.25 Est GFR (CKD-EPI)NonAf 109.79 Random Glucose 141 H Calcium 8.7 Total Bilirubin 0.3 AST 15 ALT 27 Alkaline Phosphatase 42 L Total Protein 5.8 L Albumin 2.2 L Active Medications Generic Name Dose Route Start Last Admin Trade Name Freq PRN Reason Stop Dose Admin Acetaminophen 650 mg 04/18/20 11:27 04/19/20 09:26 Tylenol - PO 650 mg Q6H PRN Administration Fever Albuterol Sulfate 1 amp 04/21/20 10:43 04/21/20 11:16 Ventolin 0.083% Nebulizer Soln - NEB 1 amp Q4H PRN Administration SHORT OF BREATH/WHEEZING Budesonide/Formoterol Fumarate 2 puff 04/21/20 11:00 04/21/20 11:37 Symbicort 80/4.5mcg - IH 2 puff BID JACQUELIN Administration Enoxaparin Sodium 40 mg 04/12/20 10:00 04/21/20 10:11 Lovenox - SQ 40 mg DAILY JACQUELIN Administration Ceftriaxone Sodium 1 gm/ 50 mls @ 100 mls/hr 04/20/20 15:30 04/21/20 10:12 Dextrose IVPB 100 mls/hr DAILY JACQUELIN Administration Metoprolol Tartrate 5 mg 04/18/20 12:24 Lopressor Injection - IVPUSH Q4H PRN TACHYCARDIA Naproxen 220 mg 04/18/20 11:34 04/20/20 09:12 Naprosyn - PO 220 mg Q6H PRN Administration PAIN LEVEL 6-10 Prednisone 40 mg 04/18/20 10:00 04/21/20 10:11 Deltasone - PO 40 mg DAILY JACQUELIN Administration Tiotropium [place] 2 puff 04/21/20 11:00 04/21/20 11:37 Spiriva Respimat IH 2 puff DAILY JACQUELIN Administration ASSESSMENT/PLAN: IMAGING: * CXR 04/11: Moderately severe COPD and right upper lobe infiltrate. * CTA chest: Severe centrilobular emphysema is noted. Marked right upper lobe and moderate left upper lobe parenchymal scarring is seen. There is mildly diminished volume of the right upper lobe. A superimposed right upper lobe acute infiltrate would be difficult to exclude on the basis of a single CT exam. Correlate clinically and with follow-up CT. 3.3 cm and 2 cm irregular left upper lobe opacities are noted which may represent primary neoplastic disease versus focal parenchymal scarring. PET/CT evaluation may be considered. Small amount of mucus secretions are seen within the thoracic trachea suggestive of chronic bronchitis. Focal nonspecific pleural thickening is seen within the right lower lobe posteriorly measuring 3.3 x 0.5 cm. Nonspecific mildly enlarged mediastinal and right hilar lymph nodes are noted. Extensive atherosclerotic coronary calcifications are noted. Chronic moderate to marked T7 and mild to moderate T12 vertebral body compression fractures are seen. Cholelithiasis. 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 #Sepsis 2/2 RUL PNA -ID following; currently on Ceftriaxone 1gm QD, day 8. Will likely d/c antibiotics tomorrow. -Pulm following: would continue inpatient management -continue PO prednisone steroid taper: as per pulm, continue 40mg x 3-4 days, taper by 5mg q3-4 days; once patient is at 20mg, continue to taper down by 5mg Qweekly. -Per Dr. Cal Boyce at [facility], pt has not followed up in a year. Biopsy done in 2018 showed no malignant cells, only chronic inflammatory changes. Has known cavitary RUL lesion for over a year as well as MONA opacity seen on CT scan in 2019. Pt never returned after biopsy for follow up visit. -continue O2; 5L NC (home o2) -BCx neg, Sp Cx neg, Urine Ag for leg S. 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 Boyce @ [facility] however patient has requested he would like to continue care with Dr. Richmond o car[place]ose discharged. #COPD, Emphysema -at baseline 5L NC O2 at home -PRN NIPPV -Titrate O2 requirements to maintain SpO2> 88% -continue duonebs standing & prn -PO Prednisone 40 QD- taper -Pulmonology following #Anemia -Stable. -Hgb 9.9 today -Iron studies: likely chronic disease (low iron, high ferritin, low tibc) #DVT PPX: -Lovenox 40mg SQ daily #FEN -no standing fluids -trend & replete lytes prn -Regular diet Dispo: Tele Visit type - Emergency Visit Emergency Visit: Yes ED Registration Date: 04/11/20 Care time: The patient presented to the Emergency Department on the above date and was hospitalized for further evaluation of their emergent condition. - New Patient This patient is new to me today: No - Critical Care Critical Care patient: No - Discharge Referral Referred to [facility] Med P.C.: No ATTENDING PHYSICIAN STATEMENT I saw and evaluated the patient. I reviewed the resident's note and discussed the case with the resident. I agree with the resident's findings and plan as documented. SUBJECTIVE: OBJECTIVE: ASSESSMENT AND PLAN:
--- NOTE | 2020-04-21 17:36 | PN ---
Teaching Attending Note Name of Resident: Elvis Hopkins ATTENDING PHYSICIAN STATEMENT I saw and evaluated the patient. I reviewed the resident's note and discussed the case with the resident. I agree with the resident's findings and plan as documented. SUBJECTIVE: No fever or chills. cont to feel intermittently SIB. feels he has secretions. no CP OBJECTIVE: NAD. Awake, alert, cooperative. CV: RRR Lungs: CTAB. No edema on upper or lower extremities. ASSESSMENT AND PLAN: 70 y/o man with h/o COPD on 4-5 L of O2, and a lung mass who presented with SOB and was found to have sepsis . 1- Sepsis due to RUL PNA. resolved - ceftriaxone day 9. can't reach ID to discuss. - probably will dc Abx tomorrow - suspect persistent elevation in white count due to steroids 2- Acute on chronic resp failure, due to acute COPD exacerbation. - cont prednsione taper , - Nebs and symbicort - Spiriva - add mucomyst Nebs fro secretions 3- MONA nodular structures and scarring. unclear etiology. - follow with out pt pulm after dc - No AFB x 2 in smear. cx is pending 4- DVT px : lovenox case was d/w pulm
[2020-04-21] MEDS ORDERED: ACETYLCYSTEINE 20% 200MG/ML 4 ML VIAL *FOR ORAL / INH USE ONLY ONE (20:05)
[2020-04-21] MEDS: ACETYLCYSTEINE 20% 200MG/ML 30 ML VIAL *FOR ORAL / INH USE ONLY NEB SCH (20:22)
[2020-04-22] MEDS ORDERED: NAPROXEN 250 MG TABLET PO PRN (00:14)
--- NOTE | 2020-04-22 07:18 | PN ---
Progress Note, Physician History of Present Illness: pulmonary alert,feeling better,less dyspeic,+ cough,on nasal o2 4l - Current Medication List Current Medications: Active Medications Acetaminophen (Tylenol -) 650 mg PO Q6H PRN PRN Reason: Fever Last Admin: 04/19/20 09:26 Dose: 650 mg Documented by: Acetylcysteine (Mucomyst 20 Oral / Inh Use Only*) 600 mg NEB RBID [facility] Last Admin: 04/21/20 20:22 Dose: 600 mg Documented by: Albuterol Sulfate (Ventolin 0.083% Nebulizer Soln -) 1 amp NEB Q4H PRN PRN Reason: SHORT OF BREATH/WHEEZING Last Admin: 04/21/20 20:22 Dose: 1 amp Documented by: Budesonide/Formoterol Fumarate (Symbicort 80/4.5mcg -) 2 puff IH BID [facility] Last Admin: 04/21/20 21:37 Dose: 2 puff Documented by: Enoxaparin Sodium (Lovenox -) 40 mg SQ DAILY [facility] Last Admin: 04/21/20 10:11 Dose: 40 mg Documented by: Ceftriaxone Sodium 1 gm/ (Dextrose) 50 mls @ 100 mls/hr IVPB DAILY [facility] Last Admin: 04/21/20 10:12 Dose: 100 mls/hr Documented by: Metoprolol Tartrate (Lopressor Injection -) 5 mg IVPUSH Q4H PRN PRN Reason: TACHYCARDIA Naproxen (Naprosyn -) 250 mg PO Q6H PRN PRN Reason: PAIN LEVEL 6-10 Prednisone (Deltasone -) 40 mg PO DAILY [facility] Last Admin: 04/21/20 10:11 Dose: 40 mg Documented by: Tiotropium [place] (Spiriva Respimat) 2 puff IH DAILY [facility] Last Admin: 04/21/20 11:37 Dose: 2 puff Documented by: - Objective Vital Signs: Vital Signs Temperature 98.2 F 04/22/20 06:00 Pulse Rate 88 04/22/20 06:00 Respiratory Rate 20 04/22/20 06:00 Blood Pressure 114/69 04/22/20 06:00 O2 Sat by Pulse Oximetry (%) 94 L 04/21/20 22:00 Constitutional: Yes: Calm, Thin, Other (mildly dyspneic) Eyes: Yes: WNL HENT: Yes: WNL Neck: Yes: WNL Cardiovascular: Yes: Regular Rate and Rhythm, S1, S2 Respiratory: Yes: Diminished Gastrointestinal: Yes: Normal Bowel Sounds, Soft Extremities: Yes: WNL Edema: No Labs: CBC, BMP 04/21/20 10:10 Assessment/Plan Problem List - Problems (1) COPD (chronic obstructive pulmonary disease) Code(s): J44.9 - CHRONIC OBSTRUCTIVE PULMONARY DISEASE, UNSPECIFIED (2) Acute exacerbation of chronic obstructive pulmonary disease (COPD) Code(s): J44.1 - CHRONIC OBSTRUCTIVE PULMONARY DISEASE W (ACUTE) EXACERBATION (3) Emphysema lung Code(s): J43.9 - EMPHYSEMA, UNSPECIFIED (4) SOB (shortness of breath) Code(s): R06.02 - SHORTNESS OF BREATH (5) Lung mass Code(s): R91.8 - OTHER NONSPECIFIC ABNORMAL FINDING OF LUNG FIELD (6) Mediastinal adenopathy Code(s): R59.0 - LOCALIZED ENLARGED LYMPH NODES Assessment/Plan nasal o2 NIPPV support as needed BD TX Prednisone symbicort VTE prophylaxis No smoking Chest pt consider pulmonary rehab post discharge DR KILGORE Problem List - Problems (1) COPD (chronic obstructive pulmonary disease) Code(s): J44.9 - CHRONIC OBSTRUCTIVE PULMONARY DISEASE, UNSPECIFIED (2) Acute exacerbation of chronic obstructive pulmonary disease (COPD) Code(s): J44.1 - CHRONIC OBSTRUCTIVE PULMONARY DISEASE W (ACUTE) EXACERBATION (3) Emphysema lung Code(s): J43.9 - EMPHYSEMA, UNSPECIFIED (4) SOB (shortness of breath) Code(s): R06.02 - SHORTNESS OF BREATH (5) Lung mass Code(s): R91.8 - OTHER NONSPECIFIC ABNORMAL FINDING OF LUNG FIELD (6) Mediastinal adenopathy Code(s): R59.0 - LOCALIZED ENLARGED LYMPH NODES
[2020-04-22 08:07] LABS: HEMATOCRIT 32.5 % (35.4-49); HEMOGLOBIN 10.4 GM/dL (11.7-16.9); MCH 30.2 pg (25.7-33.7); MCHC 32.1 g/dl (32.0-35.9); MEAN PLT VOLUME 8.6 fl (7.5-11.1); PLATELET COUNT 281 K/MM3 (134-434); RBC 3.45 M/mm3 (4.00-5.60); RDW 14.3 % (11.9-15.9); WHITE BLOOD COUNT 16.8 K/mm3 (4.0-10.0)
[2020-04-22 08:23] LABS: BLOOD UREA NITROGEN 20.7 mg/dL (7-18); CALCIUM 8.7 mg/dL (8.5-10.1); CREATININE 0.5 mg/dL (0.55-1.3); MAGNESIUM 2.4 mg/dL (1.8-2.4); PHOSPHOROUS 3.3 mg/dL (2.5-4.9); POTASSIUM 4.8 mmol/L (3.5-5.1)
[2020-04-22] MEDS ORDERED: cefTRIAXone SODIUM 1 GM VIAL ONE (09:32)
[2020-04-22] MEDS ORDERED: DEXTROSE 5%-WATER - 50 ML IVPB ONE (09:32)
[2020-04-22] MEDS: ALBUTEROL SO4 0.083% IH SOL 2.5 MG/3 ML VIAL.NEB. NEB PRN ×2 (09:35→20:50)
[2020-04-22] MEDS: ACETYLCYSTEINE 20% 200MG/ML 4 ML VIAL *FOR ORAL / INH USE ONLY NEB SCH ×2 (09:35→20:50)
[2020-04-22] MEDS: predniSONE 20 MG TABLET (UD) PO SCH (10:05)
[2020-04-22] MEDS: CEFTRIAXONE 1 GM in DEXTROSE 5%-WATER - 50 ML IVPB SCH (10:06)
[2020-04-22] MEDS: ENOXAPARIN NA (PORCINE) 40 MG/0.4 ML DISP.SYRIN SQ SCH (10:06)
[2020-04-22] MEDS: ACETAMINOPHEN 325 MG TABLET (FP) PO PRN (10:06)
[2020-04-22] MEDS: TIOTROPIUM BROMIDE 2.5 MCG (SPIRIVA) RESPIMAT INHALER IH SCH (10:10)
[2020-04-22] MEDS: BUDESONIDE/FORMETEROL FUMARATE 80/4.5 mcg INHALER IH SCH ×2 (10:11→22:30)
[2020-04-22] MEDS ORDERED: PT OWN MED DRAWER 7, Y5N ONE (13:17)
--- NOTE | 2020-04-22 15:41 | PN ---
Teaching Attending Note Name of Resident: Rosalind Bradford ATTENDING PHYSICIAN STATEMENT I saw and evaluated the patient. I reviewed the resident's note and discussed the case with the resident. I agree with the resident's findings and plan as documented. SUBJECTIVE: Patient continues to have pain. otherwise no fever or chills, no shortness of breath. OBJECTIVE: Vital Signs Temperature 98.1 F 04/22/20 14:00 Pulse Rate 90 04/22/20 14:00 Respiratory Rate 20 04/22/20 10:00 Blood Pressure 126/59 L 04/22/20 14:00 O2 Sat by Pulse Oximetry (%) 100 04/22/20 10:00 PE: per resident's note CBCD WBC 16.8 K/mm3 (4.0-10.0) H 04/22/20 05:30 RBC 3.45 M/mm3 (4.00-5.60) L 04/22/20 05:30 Hgb 10.4 GM/dL (11.7-16.9) L 04/22/20 05:30 Hct 32.5 % (35.4-49) L 04/22/20 05:30 MCV 94.0 fl (80-96) 04/22/20 05:30 MCHC 32.1 g/dl (32.0-35.9) 04/22/20 05:30 RDW 14.3 % (11.9-15.9) 04/22/20 05:30 Plt Count 281 K/MM3 (134-434) D 04/22/20 05:30 MPV 8.6 fl (7.5-11.1) 04/22/20 05:30 CMP Sodium 140 mmol/L (136-145) 04/22/20 05:30 Potassium 4.8 mmol/L (3.5-5.1) 04/22/20 05:30 Chloride 100 mmol/L (98-107) 04/22/20 05:30 Carbon Dioxide 35 mmol/L (21-32) H 04/22/20 05:30 Anion Gap 5 MMOL/L (8-16) L 04/22/20 05:30 BUN 20.7 mg/dL (7-18) H 04/22/20 05:30 Creatinine 0.5 mg/dL (0.55-1.3) L 04/22/20 05:30 Random Glucose 79 mg/dL (74-106) 04/22/20 05:30 Calcium 8.7 mg/dL (8.5-10.1) 04/22/20 05:30 Total Bilirubin 0.3 mg/dL (0.2-1) 04/21/20 10:10 AST 15 U/L (15-37) 04/21/20 10:10 ALT 27 U/L (13-61) 04/21/20 10:10 Alkaline Phosphatase 42 U/L (45-117) L 04/21/20 10:10 Total Protein 5.8 g/dl (6.4-8.2) L 04/21/20 10:10 Albumin 2.2 g/dl (3.4-5.0) L 04/21/20 10:10 CARDIAC ENZYMES Creatine Kinase 30 U/L (26-308) 04/11/20 18:39 Troponin I 0.03 ng/ml (0.00-0.05) 04/18/20 05:37 Current Medications Generic Name Dose Route Start Last Admin Trade Name Freq PRN Reason Stop Dose Admin Acetaminophen 650 mg 04/18/20 11:27 04/22/20 10:06 Tylenol - PO 650 mg Q6H PRN Administration Fever Acetylcysteine 600 mg 04/22/20 09:00 04/22/20 09:35 Mucomyst 20 Oral / Inh Use Only* NEB 600 mg RBID JACQUELIN Administration Albuterol Sulfate 1 amp 04/21/20 10:43 04/22/20 09:35 Ventolin 0.083% Nebulizer Soln - NEB 1 amp Q4H PRN Administration SHORT OF BREATH/WHEEZING Budesonide/Formoterol Fumarate 2 puff 04/21/20 11:00 04/22/20 10:11 Symbicort 80/4.5mcg - IH 2 puff BID JACQUELIN Administration Enoxaparin Sodium 40 mg 04/12/20 10:00 04/22/20 10:06 Lovenox - SQ 40 mg DAILY JACQUELIN Administration Metoprolol Tartrate 5 mg 04/18/20 12:24 04/22/20 13:16 Lopressor Injection - IVPUSH 5 mg Q4H PRN Administration TACHYCARDIA Naproxen 250 mg 04/22/20 00:14 04/22/20 13:25 Naprosyn - PO 250 mg Q6H PRN Administration PAIN LEVEL 6-10 Prednisone 40 mg 04/18/20 10:00 04/22/20 10:05 Deltasone - PO 40 mg DAILY JACQUELIN Administration Tiotropium [place] 2 puff 04/21/20 11:00 04/22/20 10:10 Spiriva Respimat IH 2 puff DAILY JACQUELIN Administration Home Medications Medication Instructions Recorded Albuterol Sulfate [Proair Hfa] 8.5 gm IH PRN 04/11/20 Cetirizine HCl [Zyrtec -] 10 mg PO PRN 04/11/20 Naproxen Sodium [Aleve] 220 mg PO PRN 04/11/20 Ramipril 1.25 mg PO DAILY 04/11/20 Salmeterol/Fluticasone [Advair 1 inh PO BID 04/11/20 100Mcg/50Mcg -] Theophylline Anhydrous [Domo-24] 150 mg PO BID 04/11/20 Tiotropium [place] [Spiriva] 1 inh PO DAILY 04/11/20 Prednisone See Taper PO DAILY #76 tablet 04/22/20 Microbiology 04/14/20 16:30 Sputum - Expectorated AFB Smear Concentration - Final 04/14/20 16:30 Sputum - Expectorated Mycobacterial Culture - Preliminary 04/17/20 11:00 Sputum - Expectorated AFB Smear Concentration - Final 04/17/20 11:00 Sputum - Expectorated Mycobacterial Culture - Preliminary 04/16/20 07:10 Sputum - Expectorated AFB Smear Concentration - Final 04/16/20 07:10 Sputum - Expectorated Mycobacterial Culture - Preliminary 04/11/20 19:00 Blood - Peripheral Venous Blood Culture - Final NO GROWTH AFTER 5 DAYS INCUBATION 04/11/20 19:00 Blood - Peripheral Venous Blood Culture - Final NO GROWTH AFTER 5 DAYS INCUBATION 04/12/20 11:58 Sputum - Expectorated Gram Stain - Final 04/12/20 11:58 Sputum - Expectorated Sputum Culture - Final NORMAL RESPIRATORY JONNY ASSESSMENT AND PLAN: This aptient is a 70yom with PMHx of COPD on 4-5 L of O2, and a lung mass who presented with SOB and was found to have sepsis . # Sepsis due to RUL PNA. resolved on ceftriaxone day 10, last dose today #Leukocytosis due to patient is being on steroids # Acute on chronic respiratory failure, due to acute COPD exacerbation. on prednisone taper , continue Nebs and symbicort , Spiriva on mucomyst and albuterl Nebs # MONA nodular structures and scarring. unclear etiology. follow with out pt pulm after dc , No AFB x 2 in smear. cx is pending DVT px : lovenox
--- NOTE | 2020-04-22 16:01 | DS ---
Physical Exam: SUBJECTIVE: Patient seen and examined. Reports copious secretions overnight afte mucomyst & symbicort nebs, felt much relief this mroning. Breathing "feels much better". OBJECTIVE: Vital Signs Period Temp Pulse Resp BP Sys/Martinez Pulse Ox Last 24 Hr 96.4 F-98.7 F 88-125 20-20 97-126/46-73 94-100 PHYSICAL EXAM GENERAL: AAOx3. NAD. LUNGS: Decreased breath sounds at b/l bases, most prominent in RUL HEART: RRR, S1, S2 without murmur, rub or gallop. ABDOMEN: Soft, ntnd, + bowel sounds, no guarding EXTREMITIES: 2+ pulses, warm, well-perfused, no edema. NEUROLOGICAL: Cranial nerves II through XII grossly intact. SKIN: b/l LE dry skin LABS Laboratory Results - last 24 hr 04/22/20 04/22/20 05:30 05:30 WBC 16.8 H RBC 3.45 L Hgb 10.4 L Hct 32.5 L MCV 94.0 MCH 30.2 MCHC 32.1 RDW 14.3 Plt Count 281 D MPV 8.6 Sodium 140 Potassium 4.8 Chloride 100 Carbon Dioxide 35 H Anion Gap 5 L BUN 20.7 H Creatinine 0.5 L Est GFR (CKD-EPI)AfAm 127.25 Est GFR (CKD-EPI)NonAf 109.79 Random Glucose 79 Calcium 8.7 Phosphorus 3.3 Magnesium 2.4 HOSPITAL COURSE: 70 y.o. M PMH emphysema, COPD (on 5L home O2), chronic right upper lung mass presenting with sepsis 2/2 to COPD exacerbation vs flare up of chronic infection. 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 Has known cavitary RUL lesion for over a year as well as MONA opacity seen on CT scan in 2019. RUL biopsy done in 2018 showed no malignant cells, only chronic inflammatory changes. Pt never returned after biopsy for follow up visit to his assembler movement. On this hospital visit, patient found to have persisting RUL cavitary lesion with severe emphysematous changes, requiring increased O2 requirements (ventimask 50%fio2). Placed on ceftriaxone, IV steroids. Concern for TB, aspergillus, COVID -19; while here patient had negative aspergillus serology and 2 negative AFB smears. COVID-19 pcr negative. Patient was started on symbicort and mucomyst with improvement of his symptoms; continues to expectorate green sputum, which he says is his baseline. Patient will likely need repeat RUL lesion biopsy as outpatient- he would like to follow up with Dr. Richmond, referral has been provided. Sending home on steroid taper- pulm recs for slightly longer taper for this patient. Instructed to follow up with infectious disease specialist Dr. Acosta. Patient will establish primary care at [facility]; clinic card handed to patient. Home O2 requirements are back to baseline, 5L nasal cannula. Vital si gns stable. Hemodynamically stable. Date of Admission:04/11/20 CXR 04/11: Moderately severe COPD and right upper lobe infiltrate. * CTA chest: Severe centrilobular emphysema is noted. Marked right upper lobe and moderate left upper lobe parenchymal scarring is seen. There is mildly diminished volume of the right upper lobe. A superimposed right upper lobe acute infiltrate would be difficult to exclude on the basis of a single CT exam. Correlate clinically and with follow-up CT. 3.3 cm and 2 cm irregular left upper lobe opacities are noted which may represent primary neoplastic disease versus focal parenchymal scarring. PET/CT evaluation may be considered. Small amount of mucus secretions are seen within the thoracic trachea suggestive of chronic bronchitis. Focal nonspecific pleural thickening is seen within the right lower lobe posteriorly measuring 3.3 x 0.5 cm. Nonspecific mildly enlarged mediastinal and right hilar lymph nodes are noted. Extensive atherosclerotic coronary calcifications are noted. Chronic moderate to marked T7 and mild to moderate T12 vertebral body compression fractures are seen. Cholelithiasis. Date of Discharge: 04/22/20 Minutes to complete discharge: 36 Discharge Summary Problems reviewed: Yes Reason For Visit: C O P D Current Active Problems Acute exacerbation of chronic obstructive pulmonary disease (COPD) (Acute) COPD (chronic obstructive pulmonary disease) (Acute) Emphysema lung (Acute) Lung mass (Acute) Mediastinal adenopathy (Acute) SOB (shortness of breath) (Acute) Condition: Stable - Instructions Diet, Activity, Other Instructions: Your visit: -You were admitted to the hospital for shortness of breath. You were found to have a COPD exacerbation. You were treated with steroids and oxygen with improvement of your symptoms. -You have a longstanding finding of a right upper lung scarring. You had a biopsy done in 2018 with your assembler movement that did not show any cancerous cells. On this visit, we did not find any evidence of any infectious or fungal source of your lung scarring. -You were also found to have 2 lung nodules in the left upper lung. It is very important that you continue care with your lung doctor so that these current lung issues do not worsen, as well as maintain appropriate follow up care. -While here you were found to be anemia; this is likely due to your chronic medical conditions. -We tested you for aspergillus which was negative. -We tested you for tuberculosis; you had 2 negative AFB tests. Medications changes: -Please continue to take the steroid prednisone. You are being sent home on a long TAPER of this medication, instructions as follows: -Day #1 7/ take 7 tablets (5mg each) for a total of 35mg. -Day #2 7/ take 7 tablets (5mg each) for a total of 35mg. -Day #3 7/3 take 6 tablets (5mg each) for a total of 30mg. -Day #4 7/4 take 6 tablets (5mg each) for a total of 30mg. -Day #5 7/5 take 5 tablets (5mg each) for a total of 25mg. -Day #6 7/6 take 5 tablets (5mg each) for a total of 25mg. -Day #7 7/7 take 4 tablets (5mg each) for a total of 20mg. -Day #8 7/8 take 4 tablets (5mg each) for a total of 20mg. -Day #9 7/ take 4 tablets (5mg each) for a total of 20mg. -Day #10 7/10 take 4 tablets (5mg each) for a total of 20mg. -Day #11 711 take 3 tablets (5mg each) for a total of 15mg. -Day #12 7/12 take 3 tablets (5mg each) for a total of 15mg. -Day #13 713 take 3 tablets (5mg each) for a total of 15mg. -Day #14 14 take 3 tablets (5mg each) for a total of 15mg. -Day #15 15 take 2 tablets (5mg each) for a total of 10mg. -Day #16 16 take 2 tablets (5mg each) for a total of 10mg. -Day #17 17 take 2 tablets (5mg each) for a total of 10mg. -Day #18 05/10 take 2 tablets (5mg each) for a total of 10mg. -Day #19 05/11 take 1 tablet (5mg each) for a total of 5mg. -Day #20 05/12 take 1 tablet (5mg each) for a total of 5mg. -Day #21 05/13 take 1 tablet (5mg each) for a total of 5mg. -Day #22 05/14 take 1 tablet (5mg each) for a total of 5mg. -Continue using home oxygen via nasal cannula (you are using 5 liters). -Continue to take all other home medications as prescribed. Follow up: -Please follow-up with assembler movement Dr. Richmond in 1 week. -Infectious disease specialist Dr. Acosta in 2 weeks. -Visit with your Primary Care Provider in 2 weeks. If you do not have a primary care provider you may make an appointment with Dr. Bradford at the [facility] clinic located at [address] [place] [address] ([phone]). Additional Instructions: -You are being discharged to your home. -Please return to the Emergency Department if you experience worsening pain, fevers, chills, shortness of breath, or chest pain, or if you experience any worsening, new or concerning symptoms. Referrals: Pascual Clark MD [Staff Physician] - Phu Acosta MD [Staff Physician] - Austin Richmond MD [Staff Physician] - Cal Boyce [Primary Care Provider] - Disposition: HOME - Home Medications Comprehensive Discharge Medication List: Ambulatory Orders Albuterol Sulfate [Proair Hfa] 8.5 gm IH PRN 04/11/20 Cetirizine HCl [Zyrtec -] 10 mg PO PRN 04/11/20 Naproxen Sodium [Aleve] 220 mg PO PRN 04/11/20 Ramipril 1.25 mg PO DAILY 04/11/20 Salmeterol/Fluticasone [Advair 100Mcg/50Mcg -] 1 inh PO BID 04/11/20 Theophylline Anhydrous [Domo-24] 150 mg PO BID 04/11/20 Tiotropium [place] [Spiriva] 1 inh PO DAILY 04/11/20 Prednisone See Taper PO DAILY #76 tablet 04/22/20 This patient is new to me today: No Emergency Visit: No Critical Care patient: No - Discharge Referral Referred to [facility] Med P.C.: No ATTENDING PHYSICIAN STATEMENT I saw and evaluated the patient. I reviewed the resident's note and discussed the case with the resident. I agree with the resident's findings and plan as documented. SUBJECTIVE: OBJECTIVE: ASSESSMENT AND PLAN:
[2020-04-22] MEDS: ACETYLCYSTEINE 20% 200MG/ML 30 ML VIAL *FOR ORAL / INH USE ONLY NEB SCH (17:25)
[2020-04-23] MEDS ORDERED: PT OWN MED DRAWER 7, Y5N ONE (06:24)
[2020-04-23] MEDS: ALBUTEROL SO4 0.083% IH SOL 2.5 MG/3 ML VIAL.NEB. NEB PRN (08:40)
[2020-04-23] MEDS: ACETYLCYSTEINE 20% 200MG/ML 4 ML VIAL *FOR ORAL / INH USE ONLY NEB SCH (08:40)
[2020-04-23] MEDS: ACETAMINOPHEN 325 MG TABLET (FP) PO PRN (09:52)
[2020-04-23] MEDS: BUDESONIDE/FORMETEROL FUMARATE 80/4.5 mcg INHALER IH SCH (10:15)
[2020-04-23] MEDS: ENOXAPARIN NA (PORCINE) 40 MG/0.4 ML DISP.SYRIN SQ SCH (10:15)
[2020-04-23] MEDS: predniSONE 20 MG TABLET (UD) PO SCH (10:15)
[2020-04-23] MEDS: TIOTROPIUM BROMIDE 2.5 MCG (SPIRIVA) RESPIMAT INHALER IH SCH (10:15)
--- NOTE | 2020-04-23 10:23 | PN ---
Progress Note, Physician History of Present Illness: pulmonary alert,dyspneic,on nasal o2. pt unable to tolerate mucomyst - Current Medication List Current Medications: Active Medications Acetaminophen (Tylenol -) 650 mg PO Q6H PRN PRN Reason: Fever Last Admin: 04/23/20 09:52 Dose: 650 mg Documented by: Acetylcysteine (Mucomyst 20 Oral / Inh Use Only*) 600 mg NEB RBID PENDING SALE TO [facility] Last Admin: 04/22/20 20:50 Dose: 600 mg Documented by: Albuterol Sulfate (Ventolin 0.083% Nebulizer Soln -) 1 amp NEB Q4H PRN PRN Reason: SHORT OF BREATH/WHEEZING Last Admin: 04/22/20 20:50 Dose: 1 amp Documented by: Budesonide/Formoterol Fumarate (Symbicort 80/4.5mcg -) 2 puff IH BID PENDING SALE TO [facility] Last Admin: 04/22/20 22:30 Dose: 2 puff Documented by: Enoxaparin Sodium (Lovenox -) 40 mg SQ DAILY PENDING SALE TO [facility] Last Admin: 04/22/20 10:06 Dose: 40 mg Documented by: Metoprolol Tartrate (Lopressor Injection -) 5 mg IVPUSH Q4H PRN PRN Reason: TACHYCARDIA Last Admin: 04/22/20 13:16 Dose: 5 mg Documented by: Naproxen (Naprosyn -) 250 mg PO Q6H PRN PRN Reason: PAIN LEVEL 6-10 Last Admin: 04/22/20 13:25 Dose: 250 mg Documented by: Prednisone (Deltasone -) 40 mg PO DAILY PENDING SALE TO [facility] Last Admin: 04/22/20 10:05 Dose: 40 mg Documented by: Tiotropium [place] (Spiriva Respimat) 2 puff IH DAILY PENDING SALE TO [facility] Last Admin: 04/22/20 10:10 Dose: 2 puff Documented by: - Objective Vital Signs: Vital Signs Temperature 97.9 F 04/22/20 20:55 Pulse Rate 105 H 04/22/20 20:55 Respiratory Rate 22 H 04/22/20 20:55 Blood Pressure 110/59 L 04/22/20 20:55 O2 Sat by Pulse Oximetry (%) 99 04/22/20 22:00 Constitutional: Yes: Well Nourished, Calm, Other (dyspneic) Eyes: Yes: WNL HENT: Yes: WNL Neck: Yes: WNL Cardiovascular: Yes: Regular Rate and Rhythm, S1, S2 Respiratory: Yes: Diminished Gastrointestinal: Yes: Normal Bowel Sounds, Soft Extremities: Yes: WNL Edema: No Labs: CBC, BMP 04/22/20 05:30 04/22/20 05:30 INR, PTT INR 1.17 (0.83-1.09) H 04/11/20 17:50 Assessment/Plan Problem List - Problems (1) COPD (chronic obstructive pulmonary disease) Code(s): J44.9 - CHRONIC OBSTRUCTIVE PULMONARY DISEASE, UNSPECIFIED (2) Acute exacerbation of chronic obstructive pulmonary disease (COPD) Code(s): J44.1 - CHRONIC OBSTRUCTIVE PULMONARY DISEASE W (ACUTE) EXACERBATION (3) Emphysema lung Code(s): J43.9 - EMPHYSEMA, UNSPECIFIED (4) SOB (shortness of breath) Code(s): R06.02 - SHORTNESS OF BREATH (5) Lung mass Code(s): R91.8 - OTHER NONSPECIFIC ABNORMAL FINDING OF LUNG FIELD (6) Mediastinal adenopathy Code(s): R59.0 - LOCALIZED ENLARGED LYMPH NODES Assessment/Plan nasal o2 NIPPV support as needed BD TX Prednisone taper symbicort VTE prophylaxis No smoking Chest pt consider pulmonary rehab post discharge d/c mucomyst DR [place] Problem List - Problems (1) COPD (chronic obstructive pulmonary disease) Code(s): J44.9 - CHRONIC OBSTRUCTIVE PULMONARY DISEASE, UNSPECIFIED (2) Acute exacerbation of chronic obstructive pulmonary disease (COPD) Code(s): J44.1 - CHRONIC OBSTRUCTIVE PULMONARY DISEASE W (ACUTE) EXACERBATION (3) Emphysema lung Code(s): J43.9 - EMPHYSEMA, UNSPECIFIED (4) SOB (shortness of breath) Code(s): R06.02 - SHORTNESS OF BREATH (5) Lung mass Code(s): R91.8 - OTHER NONSPECIFIC ABNORMAL FINDING OF LUNG FIELD (6) Mediastinal adenopathy Code(s): R59.0 - LOCALIZED ENLARGED LYMPH NODES
[2020-04-23 14:08] VITALS: BP 103/56; PULSE 112; TEMP 98
--- NOTE | 2020-04-23 17:54 | PN ---
Physical Exam: SUBJECTIVE: Patient seen and examined bedside. Was in no distress, no acute events over night. Patient was in good spirits and happy to be going home. OBJECTIVE: Vital Signs Period Temp Pulse Resp BP Sys/Martinez Pulse Ox Last 24 Hr 97.9 F-98.5 F 105-113 21-22 101-110/41-59 99-99 GENERAL: The patient is awake, alert and in no acute distress LUNGS: Breath sounds equal with dimished lower lung breath sounds, clear to auscultation bilaterally, no wheezes, no crackles HEART: Regular rate and rhythm, S1, S2 ABDOMEN: Soft, nontender, nondistended EXTREMITIES:no edema ASSESSMENT/PLAN: SSESSMENT/PLAN: IMAGING: * CXR 04/11: Moderately severe COPD and right upper lobe infiltrate. * CTA chest: Severe centrilobular emphysema is noted. Marked right upper lobe and moderate left upper lobe parenchymal scarring is seen. There is mildly diminished volume of the right upper lobe. A superimposed right upper lobe acute infiltrate would be difficult to exclude on the basis of a single CT exam. Correlate clinically and with follow-up CT. 3.3 cm and 2 cm irregular left upper lobe opacities are noted which may represent primary neoplastic disease versus focal parenchymal scarring. PET/CT evaluation may be considered. Small amount of mucus secretions are seen within the thoracic trachea suggestive of chronic bronchitis. Focal nonspecific pleural thickening is seen within the right lower lobe posteriorly measuring 3.3 x 0.5 cm. Nonspecific mildly enlarged mediastinal and right hilar lymph nodes are noted. Extensive atherosclerotic coronary calcifications are noted. Chronic moderate to marked T7 and mild to moderate T12 vertebral body compression fractures are seen. Cholelithiasis. 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 #Sepsis 2/2 RUL PNA -ID following; currently on Ceftriaxone 1gm QD, day 8. Will likely d/c antibiotics tomorrow. -Pulm following: would continue inpatient management -continue PO prednisone steroid taper: as per pulm, continue 40mg x 3-4 days, taper by 5mg q3-4 days; once patient is at 20mg, continue to taper down by 5mg Qweekly. -Per Dr. Cal Boyce at [facility], pt has not followed up in a year. Biopsy done in 2018 showed no malignant cells, only chronic inflammatory changes. Has known cavitary RUL lesion for over a year as well as MONA opacity seen on CT scan in 2019. Pt never returned after biopsy for follow up visit. -continue O2; 5L NC (home o2) -BCx neg, Sp Cx neg, Urine Ag for leg S. 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 Boyce @ [facility] however patient has requested he would like to continue care with Dr. Richmond once discharged. #COPD, Emphysema -at baseline 5L NC O2 at home -PRN NIPPV -Titrate O2 requirements to maintain SpO2> 88% -continue duonebs standing & prn -PO Prednisone 40 QD- taper -Pulmonology following #Anemia -Stable. -Hgb 10.4 on 04/22 -Iron studies: likely chronic disease (low iron, high ferritin, low tibc) #DVT PPX: -Lovenox 40mg SQ daily #FEN -no standing fluids -trend & replete lytes prn -Regular diet Dispo: home today discharge meds and instructions in discharge summary Follow up: Dr. Richmond in [address] Infect[address] disease specialist Dr. Acosta in 2 weeks. Visit with your Primary Care Provider in 2 weeks Visit type - Emergency Visit Emergency Visit: Yes ED Registration Date: 04/11/20 Care time: The patient presented to the Emergency Department on the above date and was hospitalized for further evaluation of their emergent condition. - New Patient This patient is new to me today: Yes Date on this admission: 05/03/20 - Critical Care Critical Care patient: No - Discharge Referral Referred to [facility] Med P.C.: Yes ATTENDING PHYSICIAN STATEMENT I saw and evaluated the patient. I reviewed the resident's note and discussed the case with the resident. I agree with the resident's findings and plan as documented. SUBJECTIVE: OBJECTIVE: ASSESSMENT AND PLAN:
== END 2020-04-23 14:20 | disposition home or self-care (01) | DRG 871 ==
LOC: JER 18:32 → JERBED 20:16 → J4W 21:33
PROVIDERS: ADMIT Internal Medicine; ATTEND Internal Medicine
DX: A41.9 Sepsis, unspecified organism (principal); J18.9 Pneumonia, unspecified organism; J96.21 Acute and chronic respiratory failure with hypoxia; J43.9 Emphysema, unspecified; R00.0 Tachycardia, unspecified; R59.0 Localized enlarged lymph nodes; R91.8 Other nonspecific abnormal finding of lung field; D72.829 Elevated white blood cell count, unspecified; D64.9 Anemia, unspecified
CPT/HCPCS: 36415; 71045-TC-FY; 71275-TC; 80048; 80053; 82550; 82607; 82728; 82746; 82803; 83540; 83550; 83605; 83615; 83735; 84100; 84443; 84484; 85025; 85027; 85379; 85610; 85651; 85730; 86140; 86480; 87040; 87070; 87116; 87205; 87206; 87305; 87449; 93005; 93010; 93308; 94010; 94640; 94660; 99291; J0131; J1100; Q9967; U0003

== ENCOUNTER 2021-11-25 01:05 | Inpatient (IN) | payer OTHER, BC ==
[2021-11-25] MEDS ORDERED: ACETAMINOPHEN 1000 MG/100 ML BAG IVPB ONE (02:05)
[2021-11-25] MEDS ORDERED: ACETAMINOPHEN INJECTION 100 ML IVPB ONE (02:32)
[2021-11-25] MEDS ORDERED: LIDOCAINE HCL 2% (20ML MULTI-DOSE VIAL) ONE (03:30)
[2021-11-25] MEDS ORDERED: ONDANSETRON 4 MG/2 ML VIAL IVPUSH ONE (04:35)
[2021-11-25] MEDS ORDERED: ONDANSETRON 4 MG/2 ML VIAL ONE (04:56)
[2021-11-25 05:58] LABS: INR 1.02 (0.83-1.09); PROTHROMBIN TIME (PATIENT) 11.7 SEC (9.7-13.0)
[2021-11-25 06:00] LABS: ACTIVATED PTT 29.1 SECONDS (25.2-36.5); HEMATOCRIT 34.8 % (35.4-49); MCH 29.9 pg (25.7-33.7); MCHC 31.6 g/dl (32.0-35.9); MEAN CELL VOLUME 94.5 fl (80-96); MEAN PLT VOLUME 8.3 fl (7.5-11.1); PLATELET COUNT 181 10^3/uL (134-434); RBC 3.68 M/mm3 (4.00-5.60); RDW 13.8 % (11.9-15.9); WHITE BLOOD COUNT 16.6 K/mm3 (4.0-10.0)
[2021-11-25 06:11] LABS: CALCIUM 9.2 mg/dL (8.5-10.1)
[2021-11-25 06:12] LABS: ALBUMIN 3.4 g/dl (3.4-5.0); BLOOD UREA NITROGEN 17.4 mg/dL (7-18)
[2021-11-25 06:15] LABS: CREATININE 0.7 mg/dL (0.55-1.3)
[2021-11-25 06:17] LABS: BILIRUBIN,TOTAL 0.3 mg/dL (0.2-1); TOT PROT 7.4 g/dl (6.4-8.2)
[2021-11-25] MEDS ORDERED: morphine CARPU-JECT 2 MG/1 ML DISP.SYRIN IVPUSH ONE (06:24)
[2021-11-25 09:44] LABS: ANISOCYTOSIS 0; HELMET CELLS 0; HOWELL-JOLLY BODIES 0; MACROCYTOSIS 0; OVALOCYTE 0; PLATELET ESTIMATE NORMAL; ROULEAU 0; SICKELED CELLS 0; TARGET CELLS 0; TEAR DROP CELLS 0; TOXIC GRANULATION 0
[2021-11-25 15:07] VITALS: BMI 18.3
[2021-11-25] MEDS: TIOTROPIUM BROMIDE 2.5 MCG (SPIRIVA) RESPIMAT INHALER IH SCH (15:31)
[2021-11-25] MEDS: FLUTICASONE/SALMETEROL 100 MCG/50 MCG DISKUS IH SCH (21:47)
[2021-11-26] MEDS: ALBUTEROL SO4 HFA INHALER IH PRN (06:20)
[2021-11-26 08:41] LABS: BASO % 0.7 % (0-2.0); EOS % 5.7 % (0-4.5); HEMATOCRIT 31.1 % (35.4-49); HEMOGLOBIN 10.2 GM/dL (11.7-16.9); LYMPH % 6.6 % (8-40); MCH 30.7 pg (25.7-33.7); MCHC 32.6 g/dl (32.0-35.9); MEAN CELL VOLUME 94.2 fl (80-96); MEAN PLT VOLUME 8.5 fl (7.5-11.1); PLATELET COUNT 157 10^3/uL (134-434); RDW 13.9 % (11.9-15.9); WHITE BLOOD COUNT 10.4 K/mm3 (4.0-10.0)
[2021-11-26 09:01] LABS: ALBUMIN 2.9 g/dl (3.4-5.0); MAGNESIUM 2.1 mg/dL (1.8-2.4)
[2021-11-26 09:04] LABS: CREATININE 0.6 mg/dL (0.55-1.3); PHOSPHOROUS 3.1 mg/dL (2.5-4.9)
[2021-11-26 09:05] LABS: BILIRUBIN,TOTAL 0.4 mg/dL (0.2-1)
[2021-11-26 09:06] LABS: TOT PROT 6.7 g/dl (6.4-8.2)
[2021-11-26] MEDS: TIOTROPIUM BROMIDE 2.5 MCG (SPIRIVA) RESPIMAT INHALER IH SCH (09:42)
[2021-11-26] MEDS: FLUTICASONE/SALMETEROL 100 MCG/50 MCG DISKUS IH SCH (09:44)
[2021-11-26] MEDS ORDERED: FLUTICASONE/UMECLIDIN/VILANTER(200-62.5-25 TRELEGY ELLIPTA) INAHLER IH SCH (10:00)
[2021-11-26] MEDS ORDERED: RAMIPRIL 2.5 MG CAPSULE PO SCH (10:00)
[2021-11-26] MEDS ORDERED: guaiFENesin/D-METHORPHAN HB 10 ML UNIT-DOSE CUPS PO PRN (10:45)
[2021-11-26] MEDS ORDERED: BENZOCAINE/MENTH/CETYLPYRD CL 1 EACH LOZENGE MM PRN (10:46)
[2021-11-26] MEDS: methylPREDNISolone NA SUCC 40 MG/1 ML VIAL IVPUSH SCH ×2 (10:51→17:16)
[2021-11-26] MEDS ORDERED: HEPARIN NA (PORCINE) 5,000 UNITS/ML 1ML VIAL SQ SCH (22:00)
[2021-11-27] MEDS: methylPREDNISolone NA SUCC 40 MG/1 ML VIAL IVPUSH SCH ×3 (03:00→17:12)
[2021-11-27] MEDS: ALBUTEROL SO4 HFA INHALER IH PRN (05:24)
[2021-11-27] MEDS ORDERED: MIDAZOLAM HCL 2 MG/2 ML SINGLE DOSE VIAL ONE ×2 (07:09)
[2021-11-27] MEDS ORDERED: LACTATED RINGERS SOLUTION 1,000 ML IV SCH ×2 (08:00→09:58)
[2021-11-27] MEDS ORDERED: PROMETHAZINE HCL 25 MG/1 ML VIAL IVPUSH PRN ×2 (08:00→09:58)
[2021-11-27] MEDS ORDERED: ONDANSETRON 4 MG/2 ML VIAL IVPUSH PRN ×2 (08:00→09:58)
[2021-11-27] MEDS ORDERED: ceFAZolin SODIUM 1 GM VIAL ONE (08:27)
[2021-11-27] MEDS ORDERED: KETAMINE HCL 200 MG/20 ML VIAL ONE (08:31)
[2021-11-27] MEDS ORDERED: ceFAZolin SODIUM 1 GM VIAL IVPB ONE (08:33)
[2021-11-27] MEDS ORDERED: methylPREDNISolone NA SUCC 125 MG/2 ML VIAL ONE (09:15)
[2021-11-27] MEDS ORDERED: ALBUTEROL SO4 HFA INHALER IH PRN (09:58)
[2021-11-27] MEDS ORDERED: guaiFENesin/D-METHORPHAN HB 10 ML UNIT-DOSE CUPS PO PRN (09:58)
[2021-11-27] MEDS ORDERED: BENZOCAINE/MENTH/CETYLPYRD CL 1 EACH LOZENGE MM PRN (09:58)
[2021-11-27] MEDS: RAMIPRIL 2.5 MG CAPSULE PO SCH (11:26)
[2021-11-27] MEDS: FLUTICASONE/UMECLIDIN/VILANTER(200-62.5-25 TRELEGY ELLIPTA) INAHLER IH SCH (11:27)
[2021-11-28] MEDS: methylPREDNISolone NA SUCC 40 MG/1 ML VIAL IVPUSH SCH (01:12)
[2021-11-28] MEDS ORDERED: ENOXAPARIN NA (PORCINE) 40 MG/0.4 ML DISP.SYRIN SQ SCH ×2 (08:00→10:00)
[2021-11-28] MEDS: RAMIPRIL 2.5 MG CAPSULE PO SCH (09:29)
[2021-11-28] MEDS: ENOXAPARIN NA (PORCINE) 40 MG/0.4 ML DISP.SYRIN SQ SCH (09:29)
[2021-11-28] MEDS: FLUTICASONE/UMECLIDIN/VILANTER(200-62.5-25 TRELEGY ELLIPTA) INAHLER IH SCH (09:31)
[2021-11-28 09:44] LABS: HEMOGLOBIN 9.8 GM/dL (11.7-16.9); MCH 30.4 pg (25.7-33.7); MCHC 32.6 g/dl (32.0-35.9); MEAN CELL VOLUME 93.3 fl (80-96); MEAN PLT VOLUME 8.7 fl (7.5-11.1); PLATELET COUNT 191 10^3/uL (134-434); RBC 3.22 M/mm3 (4.00-5.60); RDW 13.8 % (11.9-15.9); WHITE BLOOD COUNT 14.2 K/mm3 (4.0-10.0)
[2021-11-28 10:01] LABS: ALBUMIN 2.9 g/dl (3.4-5.0)
[2021-11-28 10:03] LABS: MAGNESIUM 2.4 mg/dL (1.8-2.4)
[2021-11-28 10:04] LABS: CALCIUM 9.1 mg/dL (8.5-10.1)
[2021-11-28 10:05] LABS: PHOSPHOROUS 2.9 mg/dL (2.5-4.9)
[2021-11-28 10:06] LABS: BILIRUBIN,TOTAL 0.5 mg/dL (0.2-1); CREATININE 0.6 mg/dL (0.55-1.3); TOT PROT 6.7 g/dl (6.4-8.2)
[2021-11-28 11:48] LABS: ANISOCYTOSIS 0; HELMET CELLS 0; HOWELL-JOLLY BODIES 0; MACROCYTOSIS 0; OVALOCYTE 0; PLATELET ESTIMATE NORMAL; ROULEAU 0; SICKELED CELLS 0; TARGET CELLS 0; TEAR DROP CELLS 0; TOXIC GRANULATION 0
[2021-11-28] MEDS ORDERED: ACETAMINOPHEN 500 MG TABLET (FP) PO PRN (14:05)
[2021-11-28] MEDS ORDERED: oxyCODONE HCL 5 MG TABLET PO PRN (14:57)
[2021-11-28] MEDS: SENNOSIDES 8.6MG TABLET (FP) PO SCH (21:40)
[2021-11-28] MEDS: DOCUSATE SODIUM 100 MG CAPSULE (FP) PO PRN (21:40)
[2021-11-28] MEDS: NYSTATIN 100,000 UNIT/GM TOPICAL CREAM 15 GM TUBE TP SCH (23:11)
[2021-11-29] MEDS: ENOXAPARIN NA (PORCINE) 40 MG/0.4 ML DISP.SYRIN SQ SCH (09:28)
[2021-11-29] MEDS: NYSTATIN 100,000 UNIT/GM TOPICAL CREAM 15 GM TUBE TP SCH ×2 (09:29→21:23)
[2021-11-29] MEDS: FLUTICASONE/UMECLIDIN/VILANTER(200-62.5-25 TRELEGY ELLIPTA) INAHLER IH SCH (09:29)
[2021-11-29] MEDS: RAMIPRIL 2.5 MG CAPSULE PO SCH (09:38)
[2021-11-29 09:49] LABS: BASO % 0.2 % (0-2.0); EOS % 4.5 % (0-4.5); HEMATOCRIT 30.3 % (35.4-49); LYMPH % 9.5 % (8-40); MCH 30.8 pg (25.7-33.7); MCHC 32.9 g/dl (32.0-35.9); MEAN CELL VOLUME 93.7 fl (80-96); MEAN PLT VOLUME 8.7 fl (7.5-11.1); MONO % 7.7 % (3.8-10.2); NEUT % 78.1 % (42.8-82.8); PLATELET COUNT 203 10^3/uL (134-434); RBC 3.23 M/mm3 (4.00-5.60); RDW 13.8 % (11.9-15.9); WHITE BLOOD COUNT 9.6 K/mm3 (4.0-10.0)
[2021-11-29 10:02] LABS: BLOOD UREA NITROGEN 26.4 mg/dL (7-18)
[2021-11-29 10:05] LABS: CREATININE 0.5 mg/dL (0.55-1.3)
[2021-11-29] MEDS: SENNOSIDES 8.6MG TABLET (FP) PO SCH (21:22)
[2021-11-30 09:51] LABS: BASO % 0.3 % (0-2.0); EOS % 7.6 % (0-4.5); HEMATOCRIT 30.8 % (35.4-49); HEMOGLOBIN 10.3 GM/dL (11.7-16.9); LYMPH % 8.9 % (8-40); MCH 31.1 pg (25.7-33.7); MCHC 33.3 g/dl (32.0-35.9); MEAN CELL VOLUME 93.3 fl (80-96); MEAN PLT VOLUME 8.3 fl (7.5-11.1); MONO % 6.2 % (3.8-10.2); PLATELET COUNT 183 10^3/uL (134-434); RDW 13.9 % (11.9-15.9); WHITE BLOOD COUNT 8.4 K/mm3 (4.0-10.0)
[2021-11-30] MEDS: ENOXAPARIN NA (PORCINE) 40 MG/0.4 ML DISP.SYRIN SQ SCH (10:01)
[2021-11-30] MEDS: NYSTATIN 100,000 UNIT/GM TOPICAL CREAM 15 GM TUBE TP SCH ×2 (10:03→22:14)
[2021-11-30] MEDS: FLUTICASONE/UMECLIDIN/VILANTER(200-62.5-25 TRELEGY ELLIPTA) INAHLER IH SCH (10:04)
[2021-11-30 10:08] LABS: ALBUMIN 2.8 g/dl (3.4-5.0)
[2021-11-30 10:10] LABS: BLOOD UREA NITROGEN 20.3 mg/dL (7-18)
[2021-11-30 10:11] LABS: CREATININE 0.5 mg/dL (0.55-1.3)
[2021-11-30 10:14] LABS: BILIRUBIN,TOTAL 0.5 mg/dL (0.2-1); TOT PROT 6.3 g/dl (6.4-8.2)
[2021-11-30] MEDS ORDERED: IBUPROFEN 400 MG TABLET (FP) PO PRN (11:23)
[2021-11-30] MEDS: RAMIPRIL 2.5 MG CAPSULE PO SCH (11:27)
[2021-11-30] MEDS ORDERED: MELATONIN 5 MG TABLETS PO PRN (14:25)
[2021-11-30] MEDS: SENNOSIDES 8.6MG TABLET (FP) PO SCH (22:14)
[2021-12-01] MEDS: RAMIPRIL 2.5 MG CAPSULE PO SCH (09:28)
[2021-12-01] MEDS: ENOXAPARIN NA (PORCINE) 40 MG/0.4 ML DISP.SYRIN SQ SCH (09:28)
[2021-12-01] MEDS: DOCUSATE SODIUM 100 MG CAPSULE (FP) PO PRN (09:30)
[2021-12-01] MEDS: FLUTICASONE/UMECLIDIN/VILANTER(200-62.5-25 TRELEGY ELLIPTA) INAHLER IH SCH (09:30)
[2021-12-01] MEDS: NYSTATIN 100,000 UNIT/GM TOPICAL CREAM 15 GM TUBE TP SCH (09:31)
[2021-12-01] MEDS ORDERED: LEVALBUTEROL HCL 0.31 MG/3 ML VIAL.NEB IH PRN (10:28)
[2021-12-01 14:39] VITALS: BP 110/58; PULSE 101; TEMP 97.9
== END 2021-12-01 19:17 | disposition home or self-care (01) | DRG 511 ==
LOC: JER 01:05 → JERBED 08:41 → J6S 14:15
PROVIDERS: ADMIT Internal Medicine; ATTEND Internal Medicine
PROC: 0PSJ04Z Reposition Left Radius with Internal Fixation Device, Open Approach (ICD-10-PCS; principal; 2021-11-27 08:00)
DX: S52.502A Unspecified fracture of the lower end of left radius, initial encounter for closed fracture (principal); S82.145A Nondisplaced bicondylar fracture of left tibia, initial encounter for closed fracture; J96.11 Chronic respiratory failure with hypoxia; R64 Cachexia; Z68.1 Body mass index [BMI] 19.9 or less, adult; J44.9 Chronic obstructive pulmonary disease, unspecified; I10 Essential (primary) hypertension; D72.829 Elevated white blood cell count, unspecified; W19.XXXA Unspecified fall, initial encounter; Y93.9 Activity, unspecified; Y92.89 Other specified places as the place of occurrence of the external cause; Y99.9 Unspecified external cause status; R74.01 Elevation of levels of liver transaminase levels; K59.00 Constipation, unspecified; B35.3 Tinea pedis
CPT/HCPCS: 36415; 70450-TC; 71046-TC-FY; 72125-TC; 72170-TC-FY; 73110-TC-LT-FY; 73130-TC-LT-FY; 73564-TC-LT-FY; 73700-TC-RT; 76000-TC-FY; 80048; 80053; 83036; 83735; 84100; 85025; 85610; 85730; 86850; 86900; 86901; 93005; 93010; 94760; 97116-GP; 97163-GP; 99285-25; C9803; J0131; J1644; U0003; U0005